=== PATIENT | female | born 1955 | race Caucasian/White ===

== ENCOUNTER 2018-10-05 11:55 | Outpatient (CLI) | payer MEDICARE ==
[~2018-10-05] VITALS: Ht 162.6 cm; Wt 73.2 kg
--- NOTE | ~2018-10-05 | HEMODYNAMI ---
PATIENT:KASSANDRA REYNOLDS MEDICAL RECORD: [id number] : 51 LOCATION:PATTI ADMISSION DATE: 10/05/18 Generatedon:10/05/201815:02 Patient name: KASSANDRA REYNOLDS Patient #: [id number] SSN: : 1955 Date of study: 10/05/2018 Page: Of Hemodynamic Procedure Report Patient Data Patient Demographics Procedure consent was obtained First Name: KASSANDRA Gender: Female Last Name: GAIL : 1955 Middle Initial: DILAN Age: 63 year(s) Patient #: [id number] Race: Unknown Additional ID: [id number] Contact details Address: [address] [place] [address] [address] State: [place] City: [facility] Zip code: [address] Past Medical History Allergies: No known allergies Admission Admission Data Admission Date: 10/05/2018 Admission Time: 11:55 Lab Results Lab Result Date: 10/05/2018 Lab Result Time: 0:00 Biochemistry Name Units Result Min Max BUN mg/dl 22 --(----)-* 7 18 Creatinine mg/dl 1.3 --(---*)-- 0.6 1.3 CBC Name Units Result Min Max Hemoglobin g/dl 12.9 -*(----)-- 13.5 17.5 Procedure Procedure Types Cath Procedure Diagnostic Procedure LHC C w/Coronaries Procedure Description Procedure Date Procedure Date: 10/05/2018 Procedure Start Time: 14:49 Procedure End Time: 15:01 Procedure Staff Name Function Maurice Mayberry MD Performing Physician Oscar Hess RT Monitor Billie Sam RN Nurse Kathleen Shane RT Scrub Procedure Data Cath Procedure Fluoroscopy Diagnostic fluoroscopy Total fluoroscopy Time: 1.2 time: 1.2 min min Diagnostic fluoroscopy Total fluoroscopy dose: 234 dose: 234 mGy mGy Contrast Material Contrast Material Type Amount (ml) Isovue 300 37 Entry Location Entry Primary Successful Side Size Upsize Upsize Entry Closure Morales ccessful Closure Location (Fr) 1 (Fr) 2 (Fr) Remarks Device Remarks Radial Right 6 Fr Mechanical artery Short Compression Estimated blood loss: 10 ml Diagnostic catheters Device Type Used For End Catheter Placement DIAGNOSTIC Maple 110cm 5 Procedure Fr catheter ([id number]) Procedure Medications Medication Administration Route Dosage Oxygen etCO2 Nasal cannula 2 l/min Lidocaine 2% added to field 20 Heparin Flush Bag added to field 2 bags (1000units/500ml NS) 0.9% NaCl I.V. 100 ml/hr Radial Cocktail I.A. 1 syringe (Verapamil 2mg/Nitro 400mcg/Heparin 1500units) Versed I.V. 1 mg Fentanyl I.V. 50 mcg Versed I.V. 1 mg Fentanyl I.V. 50 mcg Hemodynamics Rest HGB: 12.9 (g/dl) Heart Rate: 80 (bpm) Pressure Samples Time Site Value (mmHg) Purpose Heart Use Rate(bpm) 14:52 LV 72/14,12 Snapshot 126 Snapshots Pre Cath Intra NCS Post Cath Vital Signs Time Heart Resp SPO2 etCO2 NIBP Rhythm Pain Sedation Rate (ipm) (%) (mmHg) (mmHg) Status Level (bpm) 14:38:38 74 18 95 27.7 100/50(78) NSR 0 (11) 10(A) , No pain 14:42:52 74 13 92 33 89/47(76) NSR 0 (11) 10(A) , No pain 14:47:04 76 17 94 0 85/47(66) NSR 0 (11) 9(A) , No pain 14:51:18 72 12 95 0 83/39(56) NSR 0 (11) 9(A) , No pain 14:55:29 77 13 95 31.5 83/43(56) NSR 0 (11) 10(A) , No pain 14:59:40 78 13 92 24 81/43(63) NSR 0 (11) 10(A) , No pain Medications Time Medication Route Dose Verified Delivered Reason Notes Effectiveness by by 14:40:07 Oxygen etCO2 2 l/min Maurice Wise used for Nasal [facility] human anatomy teacher cannula 14:42:27 Lidocaine 2% added 20ml Maurice Richards for local to vial [facility] anesthetic field MD BOYKIN 14:42:33 Heparin Flush added 2 bags Maurice Richards used for Bag to Jefe Jefe procedure (1000units/500ml field MD BOYKIN NS) 14:42:44 0.9% NaCl I.V. 100ml/hr Maurice Wise Per [facility] Sam RN physician 14:44:26 Versed I.V. 1 mg Maurice Wise for sedation [facility] Sam RN, MD 14:44:32 Fentanyl I.V. 50 mcg Maurice Wise for sedation [facility] Sam RN, MD 14:51:18 Radial Cocktail I.A. 1 Maurice Richards for (Verapamil syringe [facility] vasodilation 2mg/Nitro MD BOYKIN 400mcg/Heparin 1500units) 14:52:17 Versed I.V. 1 mg Maurice Wise for sedation [facility] Sam RN, MD 14:52:20 Fentanyl I.V. 50 mcg Maurice Wise for sedation [facility] Sam RN, MD Procedure Log Time Note 13:56:39 Informed consent obtained and on chart 13:56:49 Diagnostic Cath Status : Elective 14:21:24 Billie Sam RN sent for patient. Start room use. 14:21:25 Time tracking: Regular hours (M-F 7:00 - 5:00) 14:21:29 Plan of Care:Hemodynamics will remain stable., Cardiac rhythm will remain stable., Comfort level will be maintained., Respiratory function will remain adequate., Patient/ family verbilizes understanding of procedure., Procedure tolerated without complication., Recovers from procedure without complications.. 14:25:53 Patient received from Pre/Post Procedure Room to [facility] 1 Alert and oriented. Tansferred to table in Supine position. 14:25:54 Warm blankets applied, and david hugger turned on for patient comfort. 14:25:55 Correct patient and procedure confirmed by team. 14:25:56 ECG and BP/O2 sat monitors applied to patient. 14:37:23 Vital chart was started 14:37:24 Baseline sample Acquired. 14:37:30 Rhythm: sinus rhythm 14:37:32 Full Disclosure recording started 14:37:55 H&P Date Dictated: 09/26/2018 Within 30 days and on chart., H&P Addendum completed by physician on day of procedure. (MUST COMPLETE FOR ALL OUTPATIENTS). 14:37:57 Pre-procedure instructions explained to patient. 14:37:58 Pre-op teaching completed and patient verbalized understanding. 14:38:02 Family in waiting room. 14:38:06 Patient NPO since Breakfast. 14:38:17 Patient allergic to No known allergies 14:38:20 Is the patient allergic to Iodine/contrast media? No. 14:38:27 Is patient on blood thinner?No 14:38:29 Patient diabetic? Yes. 14:38:30 If diabetic: On Metformin? Yes 14:38:53 If on Metformin: Last Dose? 10/03/2018 14:39:04 Previous problem with sedation/anesthesia? No ? 14:39:07 Snore? Yes 14:39:09 Sleep apnea? No 14:39:11 Deviated septum? No 14:39:12 Opens mouth fully? Yes 14:39:13 Sticks out tongue? Yes 14:39:18 Airway obstruction? No ? 14:39:25 Dentures? Yes in tight 14:39:42 Pre procedure: right dorsailis pedis pulse Doppler 14:39:52 Modified Sergey's test Ulnar < 7 seconds 14:39:55 Patient pain scale 0/10 ?. 14:40:07 Oxygen 2 l/min etCO2 Nasal cannula was administered by Billie Sam RN; used for procedure; 14:40:24 IV patent on arrival in right antecubital with 0.9% NaCl at [facility]. 14:42:27 Lidocaine 2% 20ml vial added to field was administered by Maurice Mayberry MD; for local anesthetic; 14:42:33 Heparin Flush Bag (1000units/500ml NS) 2 bags added to field was administered by Maurice Mayberry MD; used for procedure; 14:42:44 0.9% NaCl 100ml/hr I.V. was administered by Billie Sam RN; Per physician; 14:43:40 Lab Result : BUN 22 mg/dl 14:43:40 Lab Result : Creatinine 1.3 mg/dl 14:43:40 Lab Result : Hemoglobin 12.9 g/dl 14:43:45 Lab results completed and on chart. 14:43:50 Right Radial & Right Groin area was prepped with chlora-prep and draped in sterile fashion 14:43:51 Alarms reviewed by R. N. 14:43:52 Sharps counted by scrub and verified by R.N. 14:43:56 Physician arrived 14:43:56 --------ALL STOP TIME OUT------ 14:43:57 Final Timeout: patient, procedure, and site verified with staff and physician. All members of the team are in agreement. 14:44:00 Right Radial & Right Groin site verified by team. 14:44:06 Maximum allowable Isovue 300 dose 300ml. Physician notified. (300ml for normal creatinines. For patients with creatinine of 1.7 or higher multiply weight(kg) x 5 divided by creatinine.) 14:44:12 Fire Safety Assessment: A--An alcohol-based skin anteseptic being used preoperatively., C--Open oxygen or nitrous oxide is being used., D--An ESU, laser, or fiber-optic light is being used. 14:44:15 Physical assessment completed. ASA score P 2 - A patient with mild systemic disease as per Maurice Mayberry MD. 14:44:21 Sedation plan: IV Moderate Sedation Medication:Versed, Fentanyl 14:44:26 Versed 1 mg I.V. was administered by Billie Sam RN; for sedation; 14:44:32 Fentanyl 50 mcg I.V. was administered by Billie Sam RN; for sedation; 14:44:50 Use device set Radial Dx or PCI 14:44:51 ACIST Syringe (86187) opened to sterile field. 14:44:52 Medline Cath Pack ([id number]) opened to sterile field. 14:44:52 Bag Decanter (2002) opened to sterile field. 14:44:53 DIAGNOSTIC WIRE .035 260cm J wire (309888) opened to sterile field. 14:44:54 ACIST Hand Control (53212) opened to sterile field. 14:44:55 ACIST Manifold (51841) opened to sterile field. 14:44:56 Tegaderm 4 x 4 (1626W) opened to sterile field. 14:44:57 MBrace Wrist Support (110119723) opened to sterile field. 14:44:59 SHEATH 6FR Slender (13-1060) opened to sterile field. 14:49:15 Procedure started. 14:49:28 Local anesthetic to right radial artery with Lidocaine 2% by Maurice Mayberry MD.INITIAL ACCESS ONLY 14:50:25 A 6 Fr Short sheath was inserted into the Right Radial artery 14:50:33 A DIAGNOSTIC Maple 110cm 5 Fr catheter (086834) was advanced over the wire and used for Procedure. 14:51:18 Radial Cocktail (Verapamil 2mg/Nitro 400mcg/Heparin 1500units) 1 syringe I.A. was administered by Maurice Mayberry MD; for vasodilation; 14:51:22 Zero performed for pressure channel P1 14:52:11 LV gram done using STOVER 14:52:14 LV hemodynamics recorded. 14:52:17 Versed 1 mg I.V. was administered by Billie Sam RN; for sedation; 14:52:20 Fentanyl 50 mcg I.V. was administered by Billie Sam RN; for sedation; 14:52:21 EF : 55 % 14:52:38 RCA angiography performed. 14:53:08 LCA angiography performed. 14:54:23 Catheter removed. 14:55:08 TR BAND Standard ([id number]) opened to sterile field. 14:55:15 Procedure ended.(Physican Out) 14:55:32 Sheath removed intact; hemostasis achieved with Mechanical Compression to the Right Radial artery. 14:56:26 Fluoroscopy time 01.20 minutes. 14:56:32 Fluoroscopy dose: 234 mGy 14:56:32 Flurop Dose total: 234 14:56:37 Contrast amount:Isovue 300 37ml. 14:56:39 Sharps counted by scrub and verified by R.N. 14:58:45 TR band inflated with 10cc of air. 14:58:47 Insertion/operative site no bleeding no hematoma. 14:58:53 Post right radial artery:stable 14:59:35 Post-procedure physical assessment completed. ASA score P 2 - A patient with mild systemic disease as per Maurice Mayberry MD. 14:59:40 Post procedure rhythm: sinus rhythm 14:59:45 Estimated blood loss: 10 ml 14:59:52 Patient needs reinforcement of post procedure teaching. 15:00:18 Procedure and supply charges have been captured, reviewed, submitted and are correct. 15:00:48 Vital chart was stopped 15:00:48 See physician's report for complete and final results. 15:00:51 Report given to Pre/Post Procedure Room. 15:01:00 Patient transfered to Pre/Post Procedure Room with Stretcher. 15:01:05 Procedure ended. 15:01:05 Full Disclosure recording stopped 15:01:11 End room use (Document Last) Device Usage Item Name Manufacture Quantity Catalog Hospital Part Current Minimal Lot# / Number Charge Number Stock Stock Serial# Code ACIST Acist 1 93855 542416 685088 033739 20 Syringe Medical (50610) Systems Inc Medline Medline 1 [id number] 015515 49491 221733 5 Cath Pack ([id number]) Bag Microtek 1 2002S 072966 55476 137824 5 Decanter Medical Inc. (2001S) DIAGNOSTIC St Niko 1 969523 933319 972347 484402 30 WIRE .035 260cm J wire (000905) ACIST Hand Acist 1 64780 084235 571531 480888 5 Control Medical (40676) Systems Inc ACIST Acist 1 26558 269227 555346 737164 5 Manifold Medical (26286) Systems Inc Tegaderm 4 3M 1 1626W 318914 431681 072283 5 x 4 (1626W) MBrace Advanced 1 140-0250-00 318375 18574 736872 5 Wrist Vascular Support Dynamics ([id number]) SHEATH 6FR Terumo 1 [id number] 758728 633436 094271 5 Slender (80-1060) DIAGNOSTIC Terumo 1 40-9502 935667 232027 344753 5 Maple 110cm 5 Fr catheter (025868) TR BAND Terumo 1 INP36-FTW 425040 371719 182426 40 Standard ([id number]) Signature Audit [place] Stage Time Signature Unsigned Intra-Procedure 10/05/2018 Oscar Hess 3:02:16 PM RT(R) (CV) Signatures Monitor : Oscar Hess RT Signature : Date : Time : [facility] [address] [place] [address]
[2018-10-05] MEDS ORDERED: ZOLOFT100 MG PO (12:11)
[2018-10-05] MEDS ORDERED: ALBUTEROL SULF8.5 GM INH (12:12)
[2018-10-05] MEDS ORDERED: LISINOPRIL-HCT1 EAC4 PO (12:13)
[2018-10-05] MEDS ORDERED: GLUCOPHAGE1000 MG PO (12:13)
[2018-10-05] MEDS ORDERED: BAYER CHEWABLE81 MG PO (12:15)
[2018-10-05 12:23] VITALS: BP 125/71; Ht 162.6 cm; Wt 73.2 kg
[2018-10-05 12:50] LABS: BASOPHILS 0.3 % (0-2); EOSINOPHILS 1.4 % (0-7); HEMATOCRIT 39.7 % (36.0-48.0); HEMOGLOBIN 12.9 g/dL (12-16); IMMATURE GRANULOCYTES 0.4 % (0-5); LYMPHOCYTES 17.9 % (15-50); MCH 29.7 pg (26.0-34.0); MCHC 32.5 g/dL (31.0-37.0); MCV 91.3 fL (80.0-100.0); MEAN PLATELET VOLUME 11.2 fL (7.4-10.4); MONOCYTES 4.4 % (2-11); NEUTROPHILS 75.6 % (40-80); PLATELET COUNT 162 10x3/uL (130-400); RBC 4.35 10x6/uL (4.00-5.40); RDW 15.2 % (11.5-14.5); WBC 7.8 10x3/uL (4.8-10.8)
[2018-10-05 13:04] LABS: ANION GAP 14.2 mmol/L (8-16); CALCIUM 8.8 mg/dL (8.5-10.1); CARBON DIOXIDE 24.6 mmol/L (21.0-32.0); CREATININE - SERUM 1.3 mg/dL (0.6-1.3); POTASSIUM - SERUM 4.8 mmol/L (3.5-5.1)
--- NOTE | 2018-10-05 15:10 | NUR ---
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 HR 88 CHEST PAIN IS DENIED. BP 126/52
--- NOTE | 2018-10-05 15:20 | NUR ---
STAFF AT BEDSIDE CHEST PAIN IS DENIED TR BAND REMAINS CDI
--- NOTE | 2018-10-05 15:35 | NUR ---
RESTING QUIETLY WITH NO DISTRESS TR BAND IS CDI
--- NOTE | 2018-10-05 15:44 | NUR ---
SANDWICH AND SODA TO BEDSIDE
--- NOTE | 2018-10-05 16:07 | NUR ---
3 CC AIR REMOVED FROM TR BAND WITH NO BLEEDING NOTED
--- NOTE | 2018-10-05 16:21 | NUR ---
3 CC AIR REMOVED FROM TR BAND NO BLEEDING NOTED
--- NOTE | 2018-10-05 16:29 | NUR ---
VERBAL AND WRITTEN DISCHARGE GONE OVER WITH PATIENT. PIV REMOVED WITH DRESSING APPLIED. PATIENT UP TO GET DRESSED FOR DISCHARGE HOME NO DISTRESS AND CHEST PAIN DENIED
--- NOTE | 2018-10-05 16:47 | NUR ---
TR BAND REMOVED WITH DRESSING APPLIED. PATIENT DENIED CHEST PAIN. TRANSPORTED VIA TO PARKING FOR TRANSPORT HOME
--- NOTE | 2018-10-09 15:03 | OP ---
PATIENT NAME: KASSANDRA REYNOLDS MEDICAL RECORD: [id number] :51 LOCATION:D.CAT ADMISSION DATE: SURGEON: MELODIE PEREZ MD DATE OF OPERATION: 10/05/2018 PROCEDURE: Left heart catheterization, selective coronary angiography, right radial approach. CATHETERS: Radial sheath, Harold catheter. The procedure was well tolerated. The patient was returned to the swan, sheath removed. TR band was placed. FINDINGS: Left ventriculography in 30-degree STOVER view; normal wall motion and normal systolic function. CORONARY ANATOMY: LEFT MAIN: Left main is free of disease. LAD: Has a tight elongated 80% to 90% stenosis in its proximal portion, good target distally. CIRCUMFLEX: Has about 80% stenosis just past the first OM. Right coronary codominant. RIGHT CORONARY ARTERY: Totally occluded, fills via [id number] and wlda-rh-lrnsw collaterals. IMPRESSION: Multivessel coronary artery disease, normal LV systolic function. Has good targets, although does have a long time smoking history. We will ask Dr. Jones to see possible coronary artery bypass grafting versus staged intervention. TRANSINT:[id number] Voice Confirmation ID: [id number] DOCUMENT ID: [id number] MELODIE PEREZ MD at 1503 CC: [id number] DICTATION DATE: 10/05/18 1502 VP COMMUNICATIONS: 10/05/18 1618 DEP CLI 10/05/18 [place] [id number] [place] [id number]
== END 2018-10-05 16:48 | disposition home or self-care (01) ==
LOC: D.CATH 11:55
PROVIDERS: ATTEND Internal Medicine Interventional Cardiology
DX: I25.110 Atherosclerotic heart disease of native coronary artery with unstable angina pectoris (principal)

== ENCOUNTER 2018-10-16 08:00 | Outpatient (CLI) | payer MEDICARE ==
[~2018-10-16 08:00] MED LIST: ALBUTEROL SULF8.5 GM INH; BAYER CHEWABLE81 MG PO; GLUCOPHAGE1000 MG PO; LISINOPRIL-HCT1 EAC4 PO; ZOLOFT100 MG PO
[2018-10-16] MEDS ORDERED: XANAX0.25 MG PO (12:47)
[2018-10-16 14:27] LABS: BASOPHILS 0.2 % (0-2); EOSINOPHILS 1.7 % (0-7); HEMATOCRIT 36.4 % (36.0-48.0); HEMOGLOBIN 11.6 g/dL (12-16); IMMATURE GRANULOCYTES 0.3 % (0-5); LYMPHOCYTES 21.7 % (15-50); MCH 29.4 pg (26.0-34.0); MCHC 31.9 g/dL (31.0-37.0); MCV 92.4 fL (80.0-100.0); MEAN PLATELET VOLUME 11.1 fL (7.4-10.4); MONOCYTES 4.5 % (2-11); NEUTROPHILS 71.6 % (40-80); PLATELET COUNT 148 10x3/uL (130-400); RBC 3.94 10x6/uL (4.00-5.40); RDW 15.2 % (11.5-14.5); WBC 5.8 10x3/uL (4.8-10.8)
[2018-10-16 14:56] LABS: ALBUMIN 3.2 g/dL (3.4-5.0); ANION GAP 12.6 mmol/L (8-16); BILIRUBIN - TOTAL 0.23 mg/dL (0.2-1.3); CALCIUM 8.8 mg/dL (8.5-10.1); CARBON DIOXIDE 27.9 mmol/L (21.0-32.0); CREATININE - SERUM 1.4 mg/dL (0.6-1.3); PHOSPHOROUS 3.4 mg/dL (2.5-4.9); POTASSIUM - SERUM 5.5 mmol/L (3.5-5.1); PROTEIN - SERUM 6.6 g/dL (6.4-8.2); T4 THYROXIN - FREE 0.76 ng/dL (0.76-1.46); THYROID STIMULATING HORMONE 3.26 uIU/mL (0.36-3.74)
[2018-10-16 15:08] LABS: APPEARANCE CLEAR (CLEAR); BILIRUBIN NEGATIVE (NEGATIVE); COLOR YELLOW (YELLOW); GLUCOSE NEGATIVE (NEGATIVE); KETONE NEGATIVE (NEGATIVE); NITRITE POSITIVE (NEGATIVE); PROTEIN NEGATIVE (NEGATIVE); UROBILINOGEN NORMAL (NORMAL); WHITE CELLS - URINE 0-5 /hpf (0-5)
[2018-10-16 15:09] LABS: BACTERIA MANY /hpf (NONE SEEN)
[2018-10-16 15:12] LABS: APTT 27.5 SECONDS (22.8-39.4); INR 1.05 (0.85-1.17); PROTIME 13.2 SECONDS (11.6-15.0)
[2018-10-17 10:23] VITALS: BMI 27.5
== END 2018-10-16 08:01 | disposition home or self-care (01) ==
LOC: D.OPS 08:00 → D.SDCHOLD 10-19 07:30 → EDSTATUS 10-19 13:00
PROVIDERS: ATTEND Thoracic Surgery (Cardiothoracic Vascular Surgery)
DX: I25.10 Atherosclerotic heart disease of native coronary artery without angina pectoris (principal)

== ENCOUNTER 2018-10-17 09:19 | Outpatient (CLI) | payer MEDICARE ==
[~2018-10-17 09:19] MED LIST changes: +XANAX0.25 MG PO
[2018-10-17 10:23] VITALS: BP 141/62; BMI 27.5
--- NOTE | 2018-10-17 10:40 | NUR ---
STRAIGHT CATH INSERTED USING STERILE TECHNIQUE, PT TOLERATED WELL.
--- NOTE | 2018-10-17 10:41 | NUR ---
PT DC INSTRUCTIONS REVIEWED AT THIS TIME, PT VERBALIZES UNDERSTANDING.
--- NOTE | 2018-10-17 10:46 | NUR ---
PTLEAVING OPS SURGERY AT THIS TIME VIA WC, NAD NOTED.
[2018-10-17 11:29] LABS: APPEARANCE SL CLDY (CLEAR); BACTERIA MANY /hpf (NONE SEEN); BILIRUBIN NEGATIVE (NEGATIVE); COLOR YELLOW (YELLOW); EPITHELIAL CELLS 0-5 /hpf (0-5); GLUCOSE NEGATIVE (NEGATIVE); KETONE NEGATIVE (NEGATIVE); MUCUS <1+ /lpf (NONE SEEN); NITRITE POSITIVE (NEGATIVE); PROTEIN NEGATIVE (NEGATIVE); RED CELLS - URINE RARE /hpf (0-5); UROBILINOGEN NORMAL (NORMAL); WHITE CELLS - URINE 0-5 /hpf (0-5)
--- NOTE | 2018-10-17 11:33 | NUR ---
1133-UA RESULTS CALLED TO DR MENDOSA OFFICE.
== END 2018-10-17 10:46 | disposition home or self-care (01) ==
LOC: D.LAB 09:19 → D.OPS 09:19
PROVIDERS: ATTEND Thoracic Surgery (Cardiothoracic Vascular Surgery)
DX: N39.0 Urinary tract infection, site not specified (principal)

== ENCOUNTER → 2018-10-24 08:13 | Outpatient (CLI) | payer MEDICARE ==
[2018-10-17 10:23] VITALS: BMI 27.5
[2018-10-24 08:42] LABS: APPEARANCE HAZY (CLEAR); BILIRUBIN NEGATIVE (NEGATIVE); COLOR YELLOW (YELLOW); GLUCOSE NEGATIVE (NEGATIVE); KETONE NEGATIVE (NEGATIVE); NITRITE NEGATIVE (NEGATIVE); PROTEIN NEGATIVE (NEGATIVE); SPECIFIC GRAVITY 1.015 (1.005-1.020); UROBILINOGEN NORMAL (NORMAL)
== END | disposition home or self-care (01) ==
LOC: D.LAB 08:13
PROVIDERS: ATTEND Thoracic Surgery (Cardiothoracic Vascular Surgery)
DX: N39.0 Urinary tract infection, site not specified (principal); Z01.812 Encounter for preprocedural laboratory examination

== ENCOUNTER 2018-10-25 07:44 | Inpatient (IN) | payer MEDICARE ==
[~2018-10-25] VITALS: Ht 162.6 cm; Wt 80.6 kg
--- NOTE | 2018-10-25 08:36 | NUR ---
VS SANAZ 10/25/18 BP L-121/50, R- 122/46 HR- 77 POX- 97% RR-16 T-97.4T SPOKE WITH DR BUSH ABOUT RECONSULATING HER TODAY. RACHELLE STATED LONG SHE WAS OK WITH THE PLAN FROM PREVIOUS HE DIDN'T SEE ANY NEED TO RECONSULT.
[2018-10-25 08:57] LABS: BASOPHILS 0.3 % (0-2); EOSINOPHILS 2.2 % (0-7); HEMATOCRIT 36.8 % (36.0-48.0); IMMATURE GRANULOCYTES 0.4 % (0-5); LYMPHOCYTES 16.8 % (15-50); MCH 29.9 pg (26.0-34.0); MCHC 32.6 g/dL (31.0-37.0); MCV 91.5 fL (80.0-100.0); MEAN PLATELET VOLUME 10.7 fL (7.4-10.4); MONOCYTES 3.3 % (2-11); PLATELET COUNT 166 10x3/uL (130-400); RBC 4.02 10x6/uL (4.00-5.40); RDW 15.3 % (11.5-14.5); WBC 6.9 10x3/uL (4.8-10.8)
[2018-10-25 09:14] LABS: APTT 28.6 SECONDS (22.8-39.4); INR 1.08 (0.85-1.17); PROTIME 13.5 SECONDS (11.6-15.0)
[2018-10-25 09:27] LABS: ALBUMIN 3.7 g/dL (3.4-5.0); ANION GAP 16.1 mmol/L (8-16); BILIRUBIN - TOTAL 0.24 mg/dL (0.2-1.3); CALCIUM 8.8 mg/dL (8.5-10.1); CARBON DIOXIDE 23.3 mmol/L (21.0-32.0); CREATININE - SERUM 1.7 mg/dL (0.6-1.3); PHOSPHOROUS 3.4 mg/dL (2.5-4.9); POTASSIUM - SERUM 5.4 mmol/L (3.5-5.1); PROTEIN - SERUM 7.1 g/dL (6.4-8.2); T4 THYROXIN - FREE 0.75 ng/dL (0.76-1.46); THYROID STIMULATING HORMONE 2.04 uIU/mL (0.36-3.74); URIC ACID 7.6 mg/dL (2.6-7.2)
[2018-10-25 09:41] LABS: APPEARANCE HAZY (CLEAR); BACTERIA FEW /hpf (NONE SEEN); BILIRUBIN NEGATIVE (NEGATIVE); COLOR YELLOW (YELLOW); EPITHELIAL CELLS 0-5 /hpf (0-5); GLUCOSE NEGATIVE (NEGATIVE); HYALINE CAST RARE /lpf (NONE SEEN); KETONE NEGATIVE (NEGATIVE); MUCUS <1+ /lpf (NONE SEEN); NITRITE NEGATIVE (NEGATIVE); PROTEIN NEGATIVE (NEGATIVE); RED CELLS - URINE 0-5 /hpf (0-5); SPECIFIC GRAVITY 1.015 (1.005-1.020); UROBILINOGEN NORMAL (NORMAL); WHITE CELLS - URINE OCC /hpf (0-5)
[2018-10-27 09:00] LABS: CREATININE - SERUM 1.5 mg/dL (0.6-1.3)
[2018-10-30] VITALS (46 sets, daily range): BP systolic 92–149; BP diastolic 37–64; BMI 27.5; BMI 30.1
--- NOTE | 2018-10-30 05:47 | NUR ---
PATIENT STATES HEALTH HISTORY UNCHANGED SINCE 10/16/18.
[2018-10-30 14:24] LABS: INR 2.06 (0.85-1.17); PROTIME 22.5 SECONDS (11.6-15.0)
[2018-10-30 16:23] LABS: INR 1.33 (0.85-1.17); PROTIME 15.9 SECONDS (11.6-15.0)
--- NOTE | 2018-10-30 16:25 | NUR ---
PT INR CALLED TO DR FIERRO ALONG WITH UPDATE ON VS AND GTTS, ORDERS TO BEGIN CLEVIPREX
--- NOTE | 2018-10-30 16:42 | NUR ---
1655PT RECIEVED TO ROOM, SEDATED FROM SURGERY, INTUBATED WITH ETT 8.0 22 AT THE LIP PLACED ON VENT BY RT, AC, RATE 14, FIO2 60%, R IJ CVL DRESSING CDI WITH PLASMALYTE 100ML/HR, MARY WEANED OFF FROM 0.3MCG, ZINACEF INITIATED PER EMAR, BURETROL PER EMAR, MIDSTERNAL AND SUBSTERNAL DRESSINGS CDI WITH SUBSTERNAL TPM WIRE COILED, L MOJGAN DRAIN COMPRESSED WITH 30ML EMPTIED, A&P CT TO 20CM SUCTION NO AIR LEAK BLOODY DRAINAGE, RLE AND LLE HARVEST SITES CDI WITH LLE GASPER DRAIN COMPRESSED WITH BLOODY DRAINAGE, R RADIAL A LINE WITH GOOD WAVEFORM, WRIST PROTECTOR IN PLACE, ZEROED, CRITICORE JUSTICE DRAINING YELLOW URINE, BLOOD PRODUCTS ADMINISTERED ABGS REVIEWED BY DR FIERRO
--- NOTE | 2018-10-30 16:49 | NUR ---
CVP NOTED TO HAVE DROPPED, NO SIGNS OF BLEEDING FROM MAYKEL/GASPER/CTS AND NO CHANGE IN HR OR BP, DR MENDOSA NURSE LISA NOTIFIED
--- NOTE | 2018-10-30 18:25 | NUR ---
DR FIERRO UPDATED ON PT CONDITION, NO NEW ORDERS
--- NOTE | 2018-10-30 19:20 | NUR ---
PT OPENS EYES AND FOLLOWS COMMANDS. DENIES PAIN. VSS. AFEBRILE.
--- NOTE | 2018-10-30 19:55 | NUR ---
PT REMAINS LETHARGIC. AWAKENS EASILY AND FOLLOWS COMMANDS
--- NOTE | 2018-10-30 21:50 | NUR ---
PT EXTUBATED AND ON 4L NC. AWAKE AND ALERT. 250-400 ON IS.
[2018-10-31] VITALS (64 sets, daily range): BP systolic 86–133; BP diastolic 38–58; Ht 162.6 cm; Wt 80.6 kg
--- NOTE | 2018-10-31 01:00 | NUR ---
PT DANGLED AT BEDSIDE PER ORDER. TOLERATED WELL
--- NOTE | 2018-10-31 03:00 | NUR ---
PT SIPPING ICE WATER INDEPENDENTLY. SWALLOWS W/O DIFFICULTY.
--- NOTE | 2018-10-31 04:15 | NUR ---
SPOUSE AT BEDSIDE. PT IS AWAKE AND ALERT.
[2018-10-31 06:13] LABS: HEMATOCRIT 28.9 % (36.0-48.0); HEMOGLOBIN 9.3 g/dL (12-16); MCH 29.2 pg (26.0-34.0); MCHC 32.2 g/dL (31.0-37.0); MCV 90.9 fL (80.0-100.0); MEAN PLATELET VOLUME 10.1 fL (7.4-10.4); RBC 3.18 10x6/uL (4.00-5.40); RDW 15.3 % (11.5-14.5); WBC 8.2 10x3/uL (4.8-10.8)
[2018-10-31 06:39] LABS: ALBUMIN 2.6 g/dL (3.4-5.0); BILIRUBIN - TOTAL 0.3 mg/dL (0.2-1.3); CARBON DIOXIDE 29.8 mmol/L (21.0-32.0); CREATININE - SERUM 1.3 mg/dL (0.6-1.3); POTASSIUM - SERUM 4.8 mmol/L (3.5-5.1)
--- NOTE | 2018-10-31 06:49 | NUR ---
OOB TO CHAIR. FEET ELEVATED. TOLERATED WELL.
[2018-10-31 07:00] LABS: CALCIUM 7.1 mg/dL (8.5-10.1)
--- NOTE | 2018-10-31 07:00 | NUR ---
REPORT RECIEVED, PATIENT UP IN CHAIR, 4L O2 NC, RIGHT IJ CVL, DRESSING CDI, PLASMOLYTE AND ZENICEF INFUSING, RIGHT RADIAL A-LINE, GOOD WAVEFORM, WRIST PROTECTOR IN PLACE, MIDSTERNAL AND SUBSTERNAL DRESSING CDI, SUBSTERNAL CHEST TUBE X2 TO 20CM SUCTION, NO AIR LEAK, BLOODY DRAINAGE, SUBSTERNAL MAYKEL DRAIN COMPRESSED WITH BLOODY DRAINAGE, TPM WIRES COILED, BLE HARVEST SITES CDI, LLE GASPER DRAIN COMPRESSED WITH BLOODY DRAINAGE, CRITICORE JUSTICE DRAINING YELLOW URINE
--- NOTE | 2018-10-31 08:37 | NUR ---
JUSTICE DCED, ART LINE DCED WITHOUT COMPLICATION PER PROTOCOL. PLASMALYTE DCED.
--- NOTE | 2018-10-31 11:00 | NUR ---
WALKED WITH THERAPY FOR 32FT
--- NOTE | 2018-10-31 12:52 | NUR ---
TOLERATES CLEAR LIQUIDS, LEFT LEG GASPER REMOVED. SIGNIFICANT OTHER AT BEDSIDE
--- NOTE | 2018-10-31 15:55 | NUR ---
[address] ASSISTED TO BED PER DR FIERRO WHO WILL RETURN TO REMOVE CTS
--- NOTE | 2018-10-31 16:04 | OP ---
PATIENT NAME: KASSANDRA REYNOLDS MEDICAL RECORD: [id number] :51 LOCATION:DDAPHNEYI D.CV03 ADMISSION DATE:10/30/18 SURGEON: USMAN FIERRO MD DATE OF OPERATION: 10/30/2018 SURGEON: Usman Fierro MD ASSISTANTS: AASHISH Vega MD and Feng Shepard. PREOPERATIVE DIAGNOSIS: Coronary artery disease. POSTOPERATIVE DIAGNOSIS: Coronary artery disease. PROCEDURES PERFORMED: 1. Coronary artery bypass graft times 3 (left internal mammary to LAD, reverse saphenous vein graft from aorta to obtuse marginal, aorta to posterior descending artery). 2. Endoscopic saphenous vein harvest. ANESTHESIA: General endotracheal anesthesia. ESTIMATED BLOOD LOSS: Total cardiopulmonary bypass with Cell Saver retransfusion and 5 packed red blood cells, 1 platelet, 1 FFP. COMPLICATIONS: None. SPECIMEN: None. CONDITION: Stable. DISPOSITION: CV ICU. OPERATIVE FINDINGS: 1. Transesophageal echocardiography revealed good global contractility with no significant valvular stenosis or incompetence, unchanged after cardiopulmonary bypass. 2. Small greater saphenous vein in the right leg, not harvested. On the left leg, endoscopic harvest performed, but due to several large varicosities multiple incisions were required, but the vein was adequate quality, although thin walled. 3. Large fatty heart. 4. Intraoperative hyperkalemia, but good urine output in a patient with known chronic renal insufficiency. 5. LAD deep anterior epicardial 1.5 mm. 6. Obtuse marginal 1.5 mm. 7. Posterior descending artery 1.5 mm with severe disease. OPERATIVE INDICATION: Multivessel coronary artery disease. OPERATIVE PROCEDURE IN DETAIL: The patient was brought to the operating suite. General anesthesia was obtained. The patient was prepped and draped. Greater saphenous vein initially was exposed in the right leg below the knee, but was small; therefore, an incision was made in the left side. Endoscopic vein harvest was performed, but due to large varicosities, several incisions were made. The vessel was eventually ligated proximally and distally, leakage sites OPERATIVE REPORT [id number] KASSANDRA REYNOLDS and thin sites were oversewn and side branches were tied. Later, the leg was closed in multiple layers. Median sternotomy incision was made. Subcutaneous tissue divided with electrocautery. The sternum was divided with a saw. Left hemisternum was elevated. Left pleural cavity was entered. Left internal mammary was taken down as a pedicle graft. Sternal retractor was placed. Pericardium was opened. Heparin was given. The aorta was cannulated. The right atrium was well rotated to the right and was cannulated between a pursestring. After activated clotting time was appropriately elevated, the patient was placed on cardiopulmonary bypass. Sites for distal anastomosis were selected. Internal mammary had been made ready for anastomosis while waiting on the activated clotting time to be elevated. Sites for distal anastomoses were scratched out in the deep epicardial fat. There was some bleeding on heparin from the leg. It was controlled with packing and later with direct visualization and hemostasis with electrocautery. The distal anastomosis was performed in standard technique, proximal anastomosis with single cross-clamp technique with 7-0 used for the proximal anastomoses due to the thin walled veins. Aortic root was de-aired. Proximal anastomoses were tied down. The proximal distal anastomotic sites were inspected for bleeding. Left chest was evacuated and irrigated. The patient resumed spontaneous rhythm, weaned from cardiopulmonary bypass after full rewarming and was stable. The patient was decannulated. Protamine was given. Aortic cannulation site was removed, but bleeding occurred after hypertension. This was repaired with pledgeted Prolene suture. Thorough irrigation was undertaken. Hemostasis was ensured. The patient was felt to have coagulopathy and protamine was given. After the protamine, the INR was still elevated at 2.0 and additional plasma was ordered. Drains were placed in mediastinum and both pleural cavity. Ventricular pacing wires were placed. Pericardial fat was loosely reapproximated over the aorta. Left chest again evacuated and irrigated. Internal mammary artery was inspected for bleeding. Sternum was closed with wires. Fascia was closed. Subcutaneous tissue was closed. Skin was closed. Dermabond was placed. The needle and sponge counts were reported as correct. The patient was taken to ICU in stable condition. TRANSINT:[id number] Voice Confirmation ID: [id number] DOCUMENT ID: [id number] 10/30/2018 cc: Richard Lima APN, Unknown. USMAN FIERRO MD at 1604 CC: MELODIE PEREZ MD [id number] DICTATION DATE: 10/30/18 1447 SPANISH SPEAKING BABYSITTER: 10/30/18 [address] [facility] [address] [place] [address]
--- NOTE | 2018-10-31 17:00 | NUR ---
DR FIERRO DCED CHEST TUBES X2, DRESSING APPLIED, PT ASSISTED BACK TO CHAIR WITH DINNER TRAY
[2018-10-31 17:39] LABS: CREATININE - URINE 98.1 mg/dL (30-125); PROTEIN - URINE 38.4 mg/dL (0.0-11.9)
[2018-10-31 18:22] LABS: APPEARANCE CLEAR (CLEAR); BILIRUBIN NEGATIVE (NEGATIVE); COLOR YELLOW (YELLOW); GLUCOSE NEGATIVE (NEGATIVE); KETONE NEGATIVE (NEGATIVE); NITRITE NEGATIVE (NEGATIVE); PROTEIN NEGATIVE (NEGATIVE); SPECIFIC GRAVITY 1.025 (1.005-1.020); UROBILINOGEN NORMAL (NORMAL)
[2018-10-31 18:23] LABS: EPITHELIAL CELLS OCC /hpf (0-5); RED CELLS - URINE 0-5 /hpf (0-5); WHITE CELLS - URINE 0-5 /hpf (0-5)
[2018-10-31 18:24] LABS: BACTERIA MODERATE /hpf (NONE SEEN)
--- NOTE | 2018-10-31 22:00 | NUR ---
OOB TO BATHROOM WITH MINIMAL ASSISTANCE. VOIDED. ASSISTED BACK TO BED AFTER LINEN CHANGE. VERY SOB WITH EXERTION.
[2018-11-01] VITALS (66 sets, daily range): BP systolic 89–148; BP diastolic 35–74
--- NOTE | 2018-11-01 02:30 | NUR ---
OOB TO BATHROOM INDEPENDENTLY. VOIDED. ASSISTED BACK TO BED.
--- NOTE | 2018-11-01 06:00 | NUR ---
PT OOB TO BATHROOM. VOIDED. UP TO CHAIR AT BEDSIDE AFTER DRSGS WERE CHANGED.
[2018-11-01 06:28] LABS: HEMATOCRIT 27.2 % (36.0-48.0); HEMOGLOBIN 8.9 g/dL (12-16); MCH 30.1 pg (26.0-34.0); MCHC 32.7 g/dL (31.0-37.0); MCV 91.9 fL (80.0-100.0); MEAN PLATELET VOLUME 10.4 fL (7.4-10.4); RBC 2.96 10x6/uL (4.00-5.40); RDW 15.2 % (11.5-14.5); WBC 9.3 10x3/uL (4.8-10.8)
[2018-11-01 06:43] LABS: ALBUMIN 2.6 g/dL (3.4-5.0); BILIRUBIN - TOTAL 0.41 mg/dL (0.2-1.3); CALCIUM 7.8 mg/dL (8.5-10.1); CARBON DIOXIDE 30.5 mmol/L (21.0-32.0); CREATININE - SERUM 1.5 mg/dL (0.6-1.3); PROTEIN - SERUM 5.7 g/dL (6.4-8.2)
[2018-11-01 06:45] LABS: ANION GAP 10.4 mmol/L (8-16); POTASSIUM - SERUM 3.9 mmol/L (3.5-5.1)
--- NOTE | 2018-11-01 07:00 | NUR ---
REC'D UP IN CHAIR, VSS, DENIES ANY NEED AT THIS TIME.
--- NOTE | 2018-11-01 07:45 | NUR ---
ASSESSED, MEAL SERVED, C/O INCREASED MS INC PAIN WORSE W/CDB. WILL GIVE PAIN MED.
--- NOTE | 2018-11-01 08:32 | OP ---
PATIENT NAME: KASSANDRA REYNOLDS MEDICAL RECORD: [id number] :51 LOCATION:[facility] ADMISSION DATE:10/30/18 SURGEON: CHRIS FIERRO MD DATE OF OPERATION: 10/30/2018 ADDENDUM The clinical medical assistant surgeon for this case was Dr. Vega. Dr. Vega harvested the vein, ligated the bleeders, and then oversewed side branches and thin spots on the vein. The use of an clinical medical assistant surgeon saved approximately 45 minutes of general anesthetic time on this case. TRANSINT:[id number] Voice Confirmation ID: [id number] DOCUMENT ID: [id number] CHRIS FIERRO MD at 0832 CC: [id number] DICTATION DATE: 10/31/18 1603 RAMP AND CARGO SUPERVISOR: 10/31/18 1624 ADM IN [facility] [id number] [place] [address]
--- NOTE | 2018-11-01 08:45 | NUR ---
DR FIERRO IN- PT NOW W/ RESP DISTRESS- RR 30s/HR 110S/O2 SAT 80s. O2 INCREASED TO 6L/NC AND RETURNED TO BED. MARY GTT STARTED AT 0.01MCG/KG/MIN.
--- NOTE | 2018-11-01 08:57 | NUR ---
RESP DISTRESS IMPROVED- RR 27/HR 90/ O2 SAT 94%. SIGNIFICANT OTHER IN AND UPDATED.
--- NOTE | 2018-11-01 10:20 | NUR ---
RESTING W/EYES CLOSED, RESP SHALLOW/ UNLABORED, OPENS EYES TO VERBAL. LEFY GROIN DRSG CHANGED. REPOSITIONED UP IN BED. BECOMES AUDIBLY WHEEZY W/EXERTION.
--- NOTE | 2018-11-01 10:39 | NUR ---
VDS PER BEDPAN- AGAIN BECOMES AUDIBLY WHEEZY W/ANY ACTIVITY.
--- NOTE | 2018-11-01 12:00 | NUR ---
REASSESSED, FREQUENTLY ON BEDPAN.
--- NOTE | 2018-11-01 13:00 | NUR ---
MARY INCREASED TO 0.2MCG/KG/MIN- SEE FLOWSHEET.
--- NOTE | 2018-11-01 13:05 | NUR ---
NUTRITION F/U PT UP TO CHAIR, VISITORS IN ROOM. TOLERATING DIABETIC DIET WITH ~ 50% INTAKE BREAKFAST THIS AM. WILL CONTINUE TO PROVIDE DIET, MONITOR PO INTAKE. RD FOLLOWING
--- NOTE | 2018-11-01 13:30 | NUR ---
MARY INCREASED- SEE FLOWSHEET. CONT TO GET SOB W/ ACT. FREQU BEDPAN.
--- NOTE | 2018-11-01 14:50 | NUR ---
PAIN MED GIVEN FOR INC PAIN.
--- NOTE | 2018-11-01 15:00 | NUR ---
REASSESSED W/O CHANGES. MARY TITRATED-SEE IVFLOWSHEET.
--- NOTE | 2018-11-01 16:00 | NUR ---
BATH/LINEN CHANGE DONE.
--- NOTE | 2018-11-01 17:00 | NUR ---
MARY INCREASED-SEE FLOWSHEET.
--- NOTE | 2018-11-01 18:30 | NUR ---
TRANFERED TO 2213 VIA W/C IN NO DISTRESS.
[2018-11-01 19:10] LABS: SPE - A/G RATIO 1.6 (0.7-1.7); SPE - ALBUMIN 2.8 g/dL (2.9-4.4); SPE - ALPHA-1 GLOBULIN 0.3 g/dL (0.0-0.4); SPE - ALPHA-2 GLOBULIN 0.5 g/dL (0.4-1.0); SPE - BETA GLOBULIN 0.6 g/dL (0.7-1.3); SPE - GAMMA GLOBULIN 0.5 g/dL (0.4-1.8); SPE - M-SPIKE Not Observed g/dL (Not Observed); SPE - TOTAL PROTEIN 4.6 g/dL (6.0-8.5)
--- NOTE | 2018-11-01 20:30 | NUR ---
VOIDED IN BEDPAN. DENIES NEEDS
[2018-11-02] VITALS (41 sets, daily range): BP systolic 92–122; BP diastolic 30–75
--- NOTE | 2018-11-02 | NUR ---
NPO PER DR MENDOSA REQUEST FOR POSSIBLE PROCEDURE THIS AM.
--- NOTE | 2018-11-02 03:30 | NUR ---
VOIDED PER BEDPAN. REPOSITIONED FOR COMFORT. SUBSTERNAL DRSG CHANGED.
[2018-11-02 06:01] LABS: HEMATOCRIT 23.9 % (36.0-48.0); HEMOGLOBIN 7.8 g/dL (12-16); MCH 30.1 pg (26.0-34.0); MCHC 32.6 g/dL (31.0-37.0); MCV 92.3 fL (80.0-100.0); MEAN PLATELET VOLUME 10.4 fL (7.4-10.4); PLATELET COUNT 95 10x3/uL (130-400); RBC 2.59 10x6/uL (4.00-5.40); RDW 15.1 % (11.5-14.5)
[2018-11-02 06:11] LABS: WBC 6.2 10x3/uL (4.8-10.8)
[2018-11-02 06:38] LABS: ALBUMIN 2.3 g/dL (3.4-5.0); ANION GAP 8.8 mmol/L (8-16); BILIRUBIN - TOTAL 0.38 mg/dL (0.2-1.3); CALCIUM 7.9 mg/dL (8.5-10.1); CARBON DIOXIDE 30.2 mmol/L (21.0-32.0); CREATININE - SERUM 1.2 mg/dL (0.6-1.3); PROTEIN - SERUM 5.4 g/dL (6.4-8.2)
--- NOTE | 2018-11-02 07:00 | NUR ---
REPORT RECIEVED FROM THE OFF GOING RN. SEE ASSESSMENT IN THE PTS FLOW SHEET. PT IN NSR. VSS. ON 3L VIA O2. PT ASSISTED OOB AND INTO THE BEDSIDE CHAIR. PT C/O BEING SOB. O2 INCREASED TO 4L VIA NC. DR FIERRO IN THE PTS ROOM AND UPDATED ON THE PTS CONDITION. AFTER A FEW MOMENTS AND ENCOURAGING DEEP BREATHING, THE PT SOB SUBSIDED. PT PULLS ABOUT 500 ON HER IS. EDUCATED TO USE 10X'S/H AND TO COUGH. PT HAS BEEN NPO. CALL LIGHT IN REACH. WILL CONT POC.
[2018-11-02 07:28] LABS: PLATELET ESTIMATE DECREASED
--- NOTE | 2018-11-02 09:15 | NUR ---
PT DOING IS 10X'S/H. PT ONLY ABLE TO PULL ABOUT 500. ENCOURAGED TCDB.
--- NOTE | 2018-11-02 10:29 | NUR ---
SPOKE WITH DR FLORES ABOUT EXERTIONAL DYSPNEA. DR FLORES STATED TO LIMIT EXCERCISE AND TO KEEP O2.
--- NOTE | 2018-11-02 10:32 | NUR ---
PT BEDSIDE COMMODE AT THE PTS BEDSIDE. FREQUENCY IN VOIDING NOTED. PT OCCASIONALLY INC. PERIARE SELF PROVIDED
--- NOTE | 2018-11-02 10:51 | NUR ---
SPOKE WITH LISA ÁLVAREZ ABOUT PT BEING OCCASIONAL INC OF THE BLADDER BECAUSE OF THE LASIX. SHE SPOKE WITH DR FIERRO. OK TO PLACE JUSTICE.
--- NOTE | 2018-11-02 11:27 | NUR ---
FC INSERTED USING STERILE TECHNIQUE. CLEAR URINE RETURN. UA COLLECTED AND SENT TO THE LAB.
[2018-11-02 12:55] LABS: APPEARANCE CLEAR (CLEAR); BACTERIA FEW /hpf (NONE SEEN); BILIRUBIN NEGATIVE (NEGATIVE); COLOR STRAW (YELLOW); EPITHELIAL CELLS OCC /hpf (0-5); GLUCOSE NEGATIVE (NEGATIVE); KETONE NEGATIVE (NEGATIVE); NITRITE NEGATIVE (NEGATIVE); PROTEIN NEGATIVE (NEGATIVE); RED CELLS - URINE OCC /hpf (0-5); UROBILINOGEN NORMAL (NORMAL); WHITE CELLS - URINE RARE /hpf (0-5)
--- NOTE | 2018-11-02 13:40 | NUR ---
OXYGEN SATURATION DECREASED TO 90% ON 4L NC. BIPAP PLACED AT THIS TIME PER PRN ORDERS. OXYGEN SATURATION INCRASED TO 95%. NO ACUTE DISTRESS NOTED. VSS. WILL CONTINUE PLAN OF CARE.
--- NOTE | 2018-11-02 13:51 | NUR ---
DRSSING CHANGED COMPLETED PER ORDERES.
--- NOTE | 2018-11-02 15:03 | NUR ---
UP IN CHAIR WATCHING TV AT THIS TIME. NO ACUTE DISTRESS NOTED. PT DENIES ANY NEEDS. VSS. CALL LIGHT IN REACH. PERSONAL ITEMS IN REACH. WILL CONTINUE PLAN OF CARE.
--- NOTE | 2018-11-02 15:55 | NUR ---
1 U PRBC ADMINISTRATION INITIATED AT THIS TIME PER ORDERS. PT DENIES ANY NEEDS. VSS. PER DR FIERRO, PT TO HAVE CTA CHEST FOR PE PROTOCOL AFTER PT RECIEVED PRBC. NO ACUTE DISTRESS NOTED. WILL CONTINUE PLAN OF CARE.
--- NOTE | 2018-11-02 17:39 | NUR ---
UP IN BED AWAKE AT THIS TIME. NO ACUTE DISTRESS NOTED. VSS. CALL LIGHT IN REACH. WILL CONTINUE PLAN OF CARE.
--- NOTE | 2018-11-02 20:15 | NUR ---
CALLED [facility], ORDERS RECEIVED: START HEPRIN GTT @1000 U/HR, NO BOLUS, REPEAT PTT WITH AM LABS, NO FURTHER AT THIS TIME
--- NOTE | 2018-11-02 20:30 | NUR ---
ASSISTED PT FROM CHAIR TO BED, MEDS GIVEN PER MAR/ORDERS, PT REFUSED SCD'S, ELEVATED HOB PER PT REQUEST, VSS, WILL CONTINUE TO MONITOR
[2018-11-02 21:00] LABS: APTT 20.8 SECONDS (22.8-39.4); INR 1.24 (0.85-1.17); PROTIME 15.1 SECONDS (11.6-15.0)
[2018-11-03] VITALS (24 sets, daily range): BP systolic 94–129; BP diastolic 43–66
--- NOTE | 2018-11-03 04:32 | NUR ---
UPDATED ON PT, ORDERS RECEIVED FOR PT TO NOT BE AMBULATED TO BEDSIDE CHAIR IN MORNING
[2018-11-03 05:49] LABS: HEMATOCRIT 25.9 % (36.0-48.0); HEMOGLOBIN 8.5 g/dL (12-16); MCH 29.8 pg (26.0-34.0); MCHC 32.8 g/dL (31.0-37.0); MCV 90.9 fL (80.0-100.0); MEAN PLATELET VOLUME 9.6 fL (7.4-10.4); RBC 2.85 10x6/uL (4.00-5.40); RDW 15.3 % (11.5-14.5); WBC 5.3 10x3/uL (4.8-10.8)
[2018-11-03 06:05] LABS: ALBUMIN 2.1 g/dL (3.4-5.0); BILIRUBIN - TOTAL 0.44 mg/dL (0.2-1.3); CALCIUM 7.6 mg/dL (8.5-10.1); CARBON DIOXIDE 31.6 mmol/L (21.0-32.0); CREATININE - SERUM 1.2 mg/dL (0.6-1.3); POTASSIUM - SERUM 3.6 mmol/L (3.5-5.1); PROTEIN - SERUM 5.3 g/dL (6.4-8.2)
--- NOTE | 2018-11-03 13:04 | NUR ---
Nutrition Follow Up: Pt stated that her appetite is good and she loves the food. Diet: ADA PO Intake: 63% meal avg I>O Wt stable No BM since admit Rec continue current diet. RD following.
[2018-11-03 13:09] LABS: APTT 42.6 SECONDS (22.8-39.4); INR 1.14 (0.85-1.17); PROTIME 14.1 SECONDS (11.6-15.0)
--- NOTE | 2018-11-03 15:29 | MORECARE ---
CASE MANAGEMENT DISCHARGE SUMMARY PATIENT: KASSANDRA REYNOLDS UNIT: [id number] ADM DATE: 10/30/18 AGE: 63 : 53 SEX: F ROOM/BED: [facility] AUTHOR: ZEE,DOC PHYSICIAN: REFERRING PHYSICIAN: CHRIS FIERRO MD DATE OF SERVICE: 11/03/18 Discharge Plan Patient Name: KASSANDRA REYNOLDS Facility: [facility]:[place] : 1955 Planned Disposition: Anticipated Discharge Date: Discharge Date: Expected LOS: Initial Reviewer: [email or web address] Initial Review Date: 11/03/2018 Generated: 11/03/18 4:29 pm Comments DCP- Discharge Planning Updated by [email or web address]: Sandra Ly on 11/03/18 2:[address] Patient Name: KASSANDRA REYNOLDS Admission Status: Urgent Accout number: [id number] Admission Date: 10-30-2018 : 1955 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 RESOURCES FOR POST DISCHARGE OFFERED TO PATIENT. STATES NO NEEDS AT THIS TIME. WILL DC TO HOME WITH FAMILY. CM TO FOLLOW AND ASSIST NEEDED WITH DC PLANNING/NEEDS. Arc Furnace Operator: Sandra Ly DCPIA - Discharge Planning Initial Assessment Updated by [id number]: Sandra Ly on 11/03/18 3:26 pm * Is the patient Alert and Oriented? Yes * PCP DOESN'T REMEMBER HIS NAME * Pharmacy [facility] * Preadmission Environment Home with Family * ADLs Independent * Other Equipment HAS WALKER, CANE, SC, BC IF NEEDED. * List name and contact numbers for known caregivers / representatives who currently or will assist patient after discharge: ZIA MEDEIROS, * Community resources currently utilized None * Additional services required to return to the preadmission environment? No * Can the patient safely return to the preadmission environment? Yes * Has this patient been hospitalized within the prior 30 days at any hospital? No Patient Name: KASSANDRA REYNOLDS Page [phone] at 1529 All edits/amendments must be made on the electronic document DICTATION DATE: 11/03/181528 DECORATOR LIGHTING FIXTURES: EFRAÍN 11/03/181528 RPT#: [id number] DC DATE: STATUS: ADM IN [facility] [address] [place] [address] END OF REPORT
[2018-11-04] VITALS (24 sets, daily range): BP systolic 84–132; BP diastolic 35–68
--- NOTE | 2018-11-04 00:45 | NUR ---
INITIAL BLOOD DRAWN FOR HEPARIN PROTOCOL PTT AT 0000 PROBLEM WITH LAB TUBE REDRAWN AND ALSO BLOOD DRAWN FOR HEMOGRAM SENT TO LAB
[2018-11-04 01:01] LABS: HEMATOCRIT 25.4 % (36.0-48.0); HEMOGLOBIN 8.3 g/dL (12-16); MCHC 32.7 g/dL (31.0-37.0); MCV 91.7 fL (80.0-100.0); MEAN PLATELET VOLUME 10.1 fL (7.4-10.4); RBC 2.77 10x6/uL (4.00-5.40); WBC 4.9 10x3/uL (4.8-10.8)
--- NOTE | 2018-11-04 05:45 | NUR ---
PT HAD LARGE BM CHG BATH AND COMPLETE LINEN CHANGE DENIES SOB OR PAIN VSS CPOC
--- NOTE | 2018-11-04 06:45 | NUR ---
PT SITTING UP IN BED DENIES NEEDS AT THIS TIME
[2018-11-04 07:13] LABS: HEMOGLOBIN 8.4 g/dL (12-16); MCH 29.7 pg (26.0-34.0); MCHC 32.3 g/dL (31.0-37.0); MCV 91.9 fL (80.0-100.0); MEAN PLATELET VOLUME 9.9 fL (7.4-10.4); RBC 2.83 10x6/uL (4.00-5.40); RDW 14.9 % (11.5-14.5)
[2018-11-04 07:26] LABS: ALBUMIN 2.1 g/dL (3.4-5.0); ANION GAP 8.9 mmol/L (8-16); BILIRUBIN - TOTAL 0.52 mg/dL (0.2-1.3); CALCIUM 7.7 mg/dL (8.5-10.1); CREATININE - SERUM 1.2 mg/dL (0.6-1.3); POTASSIUM - SERUM 3.9 mmol/L (3.5-5.1); PROTEIN - SERUM 5.6 g/dL (6.4-8.2)
--- NOTE | 2018-11-04 18:24 | NUR ---
DR BRODERICK AT BEDSIDE-CONTINUE WITH HEPARIN GTT
--- NOTE | 2018-11-04 19:21 | NUR ---
REPORT RECEIVED, SHIFT ASSESSMENT COMPLETED PER FLOW SHEET. AAOX4. RT IJ CVL PATENT, DRESSING C/D/I. DENIES NEEDS AT THIS TIME. CALL LIGHT WITHIN REACH. SEE FLOW SHEET FOR COMPLETE ASSESSMENT. WILL CONTINUE TO MONITOR.
--- NOTE | 2018-11-04 21:05 | NUR ---
SCHEDULED MEDS GIVEN, SEE EMAR FOR DETAILS. WATER PROVIDED. ICE CHIPS PROVIDED PER PATIENT'S REQUEST. DENIES OTHER NEEDS. CALL LIGHT WITHIN REACH.
--- NOTE | 2018-11-04 23:14 | NUR ---
REASSESSMENT COMPLETED PER FLOW SHEET, SEE FOR DETAILS. NO ACUTE CHANGES NOTED. CALL LIGHT WITHIN REACH. WILL CONTINUE TO MONITOR.
[2018-11-05] VITALS (25 sets, daily range): BP systolic 90–152; BP diastolic 36–73
[2018-11-05 00:39] LABS: HEMATOCRIT 26.5 % (36.0-48.0); HEMOGLOBIN 8.6 g/dL (12-16); MCH 30.2 pg (26.0-34.0); MCHC 32.5 g/dL (31.0-37.0); MEAN PLATELET VOLUME 10.1 fL (7.4-10.4); RBC 2.85 10x6/uL (4.00-5.40); WBC 5.2 10x3/uL (4.8-10.8)
--- NOTE | 2018-11-05 01:00 | NUR ---
ASSISSTED PATIENT TO BED PER HER REQUEST, GAIT STEADY. ICE CHIPS PROVIDED PER HER REQUEST. DENIES OTHER NEEDS. CALL LIGHT WITHIN REACH.
--- NOTE | 2018-11-05 03:11 | NUR ---
REASSESSMENT COMPLETED PER FLOW SHEET, SEE FOR DETAILS. NO ACUTE CHANGES NOTED. DENIES NEEDS AT THIS TIME. CALL LIGHT WITHIN REACH. WILL CONTINUE TO MONITOR.
--- NOTE | 2018-11-05 05:03 | NUR ---
XR PERSONNEL AT BEDSIDE FOR AM CHEST XR.
--- NOTE | 2018-11-05 06:00 | NUR ---
COMPLETE BED BATH GIVEN. COMPLETE BED LINEN CHANGE AND JUSTICE CARE PROVIDED. ASSISSTED OOB TO CHAIR. GAIT STEADY. CALL LIGHT WITHIN REACH.
[2018-11-05 06:47] LABS: ALBUMIN 2.2 g/dL (3.4-5.0); ANION GAP 8.6 mmol/L (8-16); BILIRUBIN - TOTAL 0.46 mg/dL (0.2-1.3); CALCIUM 8.2 mg/dL (8.5-10.1); CARBON DIOXIDE 31.7 mmol/L (21.0-32.0); CREATININE - SERUM 1.3 mg/dL (0.6-1.3); POTASSIUM - SERUM 4.3 mmol/L (3.5-5.1); PROTEIN - SERUM 5.9 g/dL (6.4-8.2)
--- NOTE | 2018-11-05 10:22 | NUR ---
AMBULATING WITH PHYSICAL THERAPY
--- NOTE | 2018-11-05 17:00 | NUR ---
PT CALLED NURSE AND STATED R ANKLE-SEVERE PAIN RATED 10/10-AND TRAVELING UP FRONT OF LEG-STATED FEELS LIKE CRYING-NOTED OXYCONDONE GIVEN 1HR PRIOR-DR FIERRO NOTIFIED-NO ADDITIONAL EDEMA-REDNESS TO INSIDE ANKLE NOTED PALPABLE PULSE--ORDER RECIEVED AND NOTED -XRAY OF R ANKLE ORDERED
--- NOTE | 2018-11-05 19:35 | NUR ---
PT RECEIVED WITH EYES OPEN WATCHING TV IN CHAIR AT BEDSIDE, FEET ELEVATED. COMPLAINS OF PAIN TO RIGHT ANKLE, WITH PRN PAIN MEDICATION GIVEN. NO OTHER NEEDS MADE KNOWN. WILL CONTINUE TO OBSERVE.
--- NOTE | 2018-11-05 21:40 | NUR ---
PT REMAINS IN BEDSIDE CHAIR. HS MEDICATIONS GIVEN, TOLERATED WELL. WILL CONTINUE TO OBSERVE.
[2018-11-06] VITALS (22 sets, daily range): BP systolic 87–126; BP diastolic 35–68
[2018-11-06 01:08] LABS: HEMATOCRIT 25.9 % (36.0-48.0); HEMOGLOBIN 8.3 g/dL (12-16); MCH 29.5 pg (26.0-34.0); MCV 92.2 fL (80.0-100.0); MEAN PLATELET VOLUME 10.2 fL (7.4-10.4); RBC 2.81 10x6/uL (4.00-5.40); RDW 14.9 % (11.5-14.5); WBC 6.4 10x3/uL (4.8-10.8)
--- NOTE | 2018-11-06 04:34 | NUR ---
PT TAKEN TO IMAGING VIA WHEELCHAIR. PT TOLERATED TRANSFER.
--- NOTE | 2018-11-06 04:39 | NUR ---
PT RETURNED FROM IMAGING. TRANSFERS TO BEDSIDE CHAIR. TOLERATED WELL. WILL CONTINUE TO OBSERVE.
[2018-11-06 06:01] LABS: ALBUMIN 2.2 g/dL (3.4-5.0); ANION GAP 8.8 mmol/L (8-16); BILIRUBIN - TOTAL 0.43 mg/dL (0.2-1.3); CALCIUM 8.3 mg/dL (8.5-10.1); CARBON DIOXIDE 31.9 mmol/L (21.0-32.0); CREATININE - SERUM 1.3 mg/dL (0.6-1.3); POTASSIUM - SERUM 4.7 mmol/L (3.5-5.1)
--- NOTE | 2018-11-06 07:00 | NUR ---
PT RESTING IN BED C CALL LIGHT IN REACH. SITTING UP IN CHAIR AWAKE ALERT AND ORIENTED. 2L O2 VIA NC. WILL CONTINUE TO MONITOR
--- NOTE | 2018-11-06 09:33 | NUR ---
ASSISTED PATIENT OUT OF CHAIR AND AMBULATED TO GOMEZ AND BACK. PATIENT COMPLAINING OF RIGHT FOOT PAIN PREVENTING HER FROM WALKING FAR TODAY. ASSISTED BACK TO BED SO HENRI GONZALEZ, CAN REMOVE PACER WIRES.
--- NOTE | 2018-11-06 09:47 | NUR ---
NUTRITION F/U NURSING REPORTS PT TOLEATING DIABETIC DIET WITH GOOD INTAKE RECENT MEALS. WILL CONTINUE TO PROVIDE DIET, MONITOR PT PROGRESS. RD FOLLOWING
--- NOTE | 2018-11-06 10:02 | NUR ---
HENRI GONZALEZ, REMOVED PACER WIRES AT THIS TIME. PT LYING IN BED. VSS
--- NOTE | 2018-11-06 11:46 | NUR ---
PT ASSISTED PATIENT UP FROM BED TO CHAIR. SATURATION 87% JUST SITTING ON SIDE OF BED WITHOUT OXYGEN. WILL REPORT TO PLAN NURSE SO PATIENT CAN GO HOME WITH OXYGEN.
--- NOTE | 2018-11-06 12:33 | MORECARE ---
CASE MANAGEMENT DISCHARGE SUMMARY PATIENT: KASSANDRA REYNOLDS UNIT: [id number] ADM DATE: 10/30/18 AGE: 63 : 51 SEX: F ROOM/BED: [facility] AUTHOR: ZEEDOC PHYSICIAN: REFERRING PHYSICIAN: CHRIS FIERRO MD DATE OF SERVICE: 11/06/18 Discharge Plan Patient Name: KASSANDRA REYNOLDS Facility: [facility]:[address] : 1955 Planned Disposition: Anticipated Discharge Date: Discharge Date: Expected LOS: Initial Reviewer: [email or web address] Initial Review Date: 11/03/2018 Generated: 11/06/18 1:33 pm Comments DCP- Discharge Planning Updated by [email or web address]: Shila Aguirre on 11/06/18 11:[address] Patient Name: KASSANDRA REYNOLDS Encounter No: [id number] : 1955 Primary Insurance: MEDICARE A & B Anticipated DC Date: Planned Disposition: External Planned Provider: : D/C IMM explained and signed 11/06/18 @ 1123 DCP follow-up note: Patient and family in agreement with discharge plan. No changes to plan. Case management will follow and assist as needed. 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 RESOURCES FOR POST DISCHARGE OFFERED TO PATIENT. STATES NO NEEDS AT THIS TIME. WILL DC TO HOME WITH FAMILY. CM TO FOLLOW AND ASSIST NEEDED WITH DC PLANNING/NEEDS. Leasing Sales Consultant: Sandra Ly DCPIA - Discharge Planning Initial Assessment Updated by [id number]: Sandra Ly on 11/03/18 3:26 pm * Is the patient Alert and Oriented? Yes * PCP DOESN'T REMEMBER HIS NAME * Pharmacy [facility] * Preadmission Environment Home with Family * ADLs Independent * Other Equipment HAS WALKER, CANE, SC, BC IF NEEDED. * List name and contact numbers for known caregivers / representatives who currently or will assist patient after discharge: ZIA MEDEIROS, * Community resources currently utilized None * Additional services required to return to the preadmission environment? No * Can the patient safely return to the preadmission environment? Yes * Has this patient been hospitalized within the prior 30 days at any hospital? No Coverage Notice Reviewer: [id number] Marques Aguirre Notice Issued Date-Time: 11/06/2018 11:23 Notice Type: IM Discharge Notice Notice Delivered To: Patient Relationship to Patient: Self Route Relief Driver Name: Delivery Method: HAND - Hand Delivered Joycelyn Days: Prior Verbal Notification: Recipient Understood Notice: Yes Recipient Signature: Yes Med Rec Note Co-signed by Attending: Coverage Notice Comment: Last DP export: 11/03/18 2:29 p Patient Name: KASSANDRA REYNOLDS Page [phone] at 1233 All edits/amendments must be made on the electronic document DICTATION DATE: 11/06/18 1233 READINESS PARAPROFESSIONAL: EFRAÍN 11/06/18 1233 RPT#: [id number] DC DATE: STATUS: ADM IN [facility] [address] [place] [address] END OF REPORT
--- NOTE | 2018-11-06 13:35 | NUR ---
NOTIFIED BEATER MACHINE OPERATOR, VONNIE, THAT PATIENT WILL NEED O2 FOR HOME WHEN DISCHARGED.
--- NOTE | 2018-11-06 15:14 | MORECARE ---
CASE MANAGEMENT DISCHARGE SUMMARY PATIENT: KASSANDRA REYNOLDS UNIT: [id number] ADM DATE: 10/30/18 AGE: 63 : 51 SEX: F ROOM/BED: [facility] AUTHOR: ZEEDOC PHYSICIAN: REFERRING PHYSICIAN: CHRIS FIERRO MD DATE OF SERVICE: 11/06/18 Discharge Plan Patient Name: KASSANDRA REYNOLDS Facility: [facility]:[place] : 1955 Planned Disposition: Anticipated Discharge Date: Discharge Date: Expected LOS: Initial Reviewer: [id number] Initial Review Date: 11/03/2018 Generated: 11/06/18 4:14 pm Comments DCP- Discharge Planning Updated by [email or web address]: Shila Aguirre on 11/06/18 11:[address] Patient Name: KASSANDRA REYNOLDS Encounter No: [id number] : 1955 Primary Insurance: MEDICARE A & B Anticipated DC Date: Planned Disposition: External Planned Provider: : D/C IMM explained and signed 11/06/18 @ 1123 DCP follow-up note: Patient and family in agreement with discharge plan. No changes to plan. Case management will follow and assist as needed. 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 RESOURCES FOR POST DISCHARGE OFFERED TO PATIENT. STATES NO NEEDS AT THIS TIME. WILL DC TO HOME WITH FAMILY. CM TO FOLLOW AND ASSIST NEEDED WITH DC PLANNING/NEEDS. Hearing Instrument Specialist: Sandra Ly DCPIA - Discharge Planning Initial Assessment Updated by [id number]: Sandra Ly on 11/03/18 3:26 pm * Is the patient Alert and Oriented? Yes * PCP DOESN'T REMEMBER HIS NAME * Pharmacy [facility] * Preadmission Environment Home with Family * ADLs Independent * Other Equipment HAS WALKER, CANE, SC, BC IF NEEDED. * List name and contact numbers for known caregivers / representatives who currently or will assist patient after discharge: ZIA MEDEIROS, * Community resources currently utilized None * Additional services required to return to the preadmission environment? No * Can the patient safely return to the preadmission environment? Yes * Has this patient been hospitalized within the prior 30 days at any hospital? No External Providers External Provider: [facility] Next Contact Date: Service Request Date: Service Type: Resolution: Reviewer: Comments: Coverage Notice Reviewer: [id number] - Shila Aguirre Notice Issued Date-Time: 11/06/2018 11:23 Notice Type: IM Discharge Notice Notice Delivered To: Patient Relationship to Patient: Self Subgrade Tester Name: Delivery Method: HAND - Hand Delivered Joycelyn Days: Prior Verbal Notification: Recipient Understood Notice: Yes Recipient Signature: Yes Med Rec Note Co-signed by Attending: Coverage Notice Comment: Last DP export: 11/06/18 11:33 a Patient Name: KASSANDRA REYNOLDS Page [phone] at 1514 All edits/amendments must be made on the electronic document DICTATION DATE: 11/06/181512 MEDICAL APPLIANCE MAKER: EFRAÍN 11/06/181512 RPT#: [id number] DC DATE: STATUS: ADM IN [facility] [address] [place] [address] END OF REPORT
--- NOTE | 2018-11-06 15:30 | NUR ---
OBTAINED OKAY TO START PATIENT ON ELIQUIS FROM DR. MENDOSA NURSE LISA.
--- NOTE | 2018-11-06 16:00 | NUR ---
ASSISTED PATIENT TO BED AND LAYED IN SUPINE POSITION TO REMOVE RIGHT IJ CENTRAL LINE. DRESSED WITH GUAZE AND TEGADERM. VSS.
--- NOTE | 2018-11-06 16:37 | NUR ---
ALL PEDAL PULSES PALPABLE.
--- NOTE | 2018-11-06 17:01 | MORECARE ---
CASE MANAGEMENT DISCHARGE SUMMARY PATIENT: KASSANDRA REYNOLDS UNIT: [id number] ADM DATE: 10/30/18 AGE: 63 : 51 SEX: F ROOM/BED: [facility] AUTHOR: ZEE,DOC PHYSICIAN: REFERRING PHYSICIAN: CHRIS FIERRO MD DATE OF SERVICE: 11/06/18 Discharge Plan Patient Name: KASSANDRA REYNOLDS Facility: [facility]:[place] : 1955 Planned Disposition: Anticipated Discharge Date: Discharge Date: Expected LOS: Initial Reviewer: [email or web address] Initial Review Date: 11/03/2018 Generated: 11/06/18 6:00 pm Comments DCP- Discharge Planning Updated by [email or web address]: Shila Aguirre on 11/06/18 3:[address] CM requested walk test for need of home 02. Patient 02 sat was 87% on RA. CM spoke with patient and sent records to [facility] for home 02. Plan for patient to potentially discharge / Tue. CM will continue to follow and assist as needed with discharge planning / needs. DCP- Discharge Planning Updated by [id number]: Shila Aguirre on 11/06/18 11:[address] Patient Name: KASSANDRA REYNOLDS Encounter No: [id number] : 1955 Primary Insurance: MEDICARE A & B Anticipated DC Date: Planned Disposition: External Planned Provider: : D/C IMM explained and signed 11/06/18 @ 1123 DCP follow-up note: Patient and family in agreement with discharge plan. No changes to plan. Case management will follow and assist as needed. 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 RESOURCES FOR POST DISCHARGE OFFERED TO PATIENT. STATES NO NEEDS AT THIS TIME. WILL DC TO HOME WITH FAMILY. CM TO FOLLOW AND ASSIST NEEDED WITH DC PLANNING/NEEDS. Time Lock Expert: Sandra Ly DCPIA - Discharge Planning Initial Assessment Updated by [id number]: Sandra Ly on 11/03/18 3:26 pm * Is the patient Alert and Oriented? Yes * PCP DOESN'T REMEMBER HIS NAME * Pharmacy [facility] * Preadmission Environment Home with Family * ADLs Independent * Other Equipment HAS WALKER, CANE, SC, BC IF NEEDED. * List name and contact numbers for known caregivers / representatives who currently or will assist patient after discharge: ZIA MEDEIROS, * Community resources currently utilized None * Additional services required to return to the preadmission environment? No * Can the patient safely return to the preadmission environment? Yes * Has this patient been hospitalized within the prior 30 days at any hospital? No Coverage Notice Reviewer: [id number] Marques Aguirre Notice Issued Date-Time: 11/06/2018 11:23 Notice Type: IM Discharge Notice Notice Delivered To: Patient Relationship to Patient: Self Metal Box Maker Name: Delivery Method: HAND - Hand Delivered Joycelyn Days: Prior Verbal Notification: Recipient Understood Notice: Yes Recipient Signature: Yes Med Rec Note Co-signed by Attending: Coverage Notice Comment: Last DP export: 11/06/18 2:14 p Patient Name: KASSANDRA REYNOLDS Page [phone] at 1701 All edits/amendments must be made on the electronic document DICTATION DATE: 11/06/181699 PRE BILLING SPECIALIST: EFRAÍN 11/06/181699 RPT#: [id number] DC DATE: STATUS: ADM IN [facility] [address] [place] [address] END OF REPORT
--- NOTE | 2018-11-06 18:38 | TEE ---
PATIENT:KASSANDRA REYNOLDS MEDICAL RECORD: [id number] LOCATION:[place] [address] AGE OF PATIENT: 63 ADMISSION DATE: 10/30/18 SEX: F REFERRING PHYSICIAN: INTERPRETING PHYSICIAN: THEODORA RAINES MD TRANSESOPHAGEAL ECHOCARDIOGRAM Date: 10/30/18 ESTHER CHARGE Y INDICATIONS: CABG PREMEDICATIONS: PATIENT'S RESPONSE PROCEDURE DOPPLER MEASUREMENTS: LVIT LA 3.4 PA RA LVOT RVOT Asc. Ao AV Gradient Peak AV Mean AV Area MV Gradient Peak MV Mean MV Area INTERPRETATION: Doppler: 2-D: EF 55-60% COLOR FLOW DOPPLER NORMAL SALINE STUDY: MISCELLANOUS: DIAGNOSIS: PLAN: Ammonia Print Operator:3 Dr. Bentley It Application Development Manager: Akshat HICKS COMMENTS: SRI PATIENT DATE OF SERVICE: 10/30/2018 PROCEDURE: Transesophageal echo evaluation of valvular structures during bypass surgery. FINDINGS: 1. Left ventricular chamber size is within normal limits. Left ventricular systolic function is normal. Overall ejection fraction estimated at 55% to 60%. 2. Left atrium, right atrium, and right ventricular chamber size is within TRANSESOPHAGEAL ECHOCARDIOGRAM REPORT [id number] KASSANDRA REYNOLDS normal limits. 3. Valvular structures have normal structure and motion. 4. Doppler interrogation reveals no significant valvular insufficiency or stenosis. 5. No evidence of pericardial effusion or left ventricular thrombus. TRANSINT:[id number] Voice Confirmation ID: [id number] DOCUMENT ID: [id number] 1838 CC: [id number] DICTATION DATE: 10/31/18 0641 LENS GENERATOR: 10/31/18 0830 ADM IN [place] [id number] [place] [id number]
--- NOTE | 2018-11-06 18:38 | EC ---
PATIENT:KASSANDRA REYNOLDS DATE OF SERVICE: 10/30/18 SEX: F MEDICAL RECORD: [id number] DATE OF : 51 LOCATION:.[place] [address] AGE OF PATIENT: 63 ADMISSION DATE: 10/30/18 REFERRING PHYSICIAN: INTERPRETING PHYSICIAN: THEODORA RAINES MD ECHOCARDIOGRAM REPORT ECHO CHARGES 5 ECHO LIMITED Date: 11/02/18 CLINICAL DIAGNOSIS: REASSSESS FOR PERICARDIAL EFFUSION ECHOCARDIOGRAPHIC MEASUREMENTS (adult normal given) AC root (d.<3.7cm) cm LV Septum d (<1.2 cm> cm Valve Excursion cm LV Septum (systole) cm Left Atria (s.<4.0cm> cm LVPW d(<1.2cm) cm RV (d.<2.3cm) cm LVPW (sytole) cm LV diastole(<5.6CM) 5.3 cm MV E-F(>70mm/sec) cm LV systole 4.1 cm LVOT Diameter cm MV exc.(>10mm) cm Est.ejection fraction (50-75%) % DOPPLER: LVIT cm/sec A cm/sec E cm/sec LA 3.4 cm/sec RVSP mmHg LVOT cm/sec AOP1/2T m/s Asc. Ao cm/sec RVOT cm/sec RA cm/sec PA cm/sec AV Gradient Peak mmHg AV Mean mmHg AV Area cm MV Gradient Peak mmHg MV Mean mmHg MV Area cm COMMENTS: SRI PATIENT Mechanical Project Manager: Akshat HICKS Senior Media Planner: 3 Dr. Bentley TAPE# PACS Pericardial Effusion Y DATE OF SERVICE: 11/02/2018 LIMITED ECHOCARDIOGRAM DATE OF SERVICE: 11/02/2018 FINDINGS: Left ventricular chamber size is within normal limits. Left ventricular systolic function is preserved at 50% to 55%. TRANSINT:[id number] Voice Confirmation ID: [id number] DOCUMENT ID: [id number] ECHOCARDIOGRAM REPORT [id number] KASSANDRA REYNOLDS THEODORA KELLY MD at 1838 CC: [id number] DICTATION DATE: 11/02/18 1236 BRIQUETTE MAKER: 11/02/18 1244 [place] [address]
--- NOTE | 2018-11-06 18:38 | EC ---
PATIENT:KASSANDRA REYNOLDS DATE OF SERVICE: 10/30/18 SEX: F MEDICAL RECORD: [id number] DATE OF : [birth year] LOCATION:[place] [address] AGE OF PATIENT: 63 ADMISSION DATE: 10/30/18 REFERRING PHYSICIAN: INTERPRETING PHYSICIAN: THEODORA RAINES MD ECHOCARDIOGRAM REPORT ECHO CHARGES 5 ECHO LIMITED Date: 11/01/18 CLINICAL DIAGNOSIS: POST OP CABG/LOW EF EFFUSION ECHOCARDIOGRAPHIC MEASUREMENTS (adult normal given) AC root (d.<3.7cm) cm LV Septum d (<1.2 cm> cm Valve Excursion cm LV Septum (systole) cm Left Atria (s.<4.0cm> cm LVPW d(<1.2cm) cm RV (d.<2.3cm) cm LVPW (sytole) cm LV diastole(<5.6CM) 5.3 cm MV E-F(>70mm/sec) cm LV systole 4.1 cm LVOT Diameter cm MV exc.(>10mm) cm Est.ejection fraction (50-75%) % DOPPLER: LVIT cm/sec A cm/sec E cm/sec LA 3.4 cm/sec RVSP mmHg LVOT cm/sec AOP1/2T m/s Asc. Ao cm/sec RVOT cm/sec RA cm/sec PA cm/sec AV Gradient Peak mmHg AV Mean mmHg AV Area cm MV Gradient Peak mmHg MV Mean mmHg MV Area cm COMMENTS: SRI PATIENT Laundry Supervisor: 2 SIDDHARTH HICKS Vegetable Farm Manager: 3 Dr. Bentley TAPE# PACS Pericardial Effusion N DATE OF SERVICE: 11/01/2018 LIMITED ECHOCARDIOGRAM FOR EJECTION FRACTION Left ventricular chamber size is within normal limits. Left ventricular systolic function is preserved at 55%. TRANSINT:[id number] Voice Confirmation ID: [id number] DOCUMENT ID: [id number] ECHOCARDIOGRAM REPORT [id number] GAILKASSANDRA MORENO THEODORA KELLY MD at 1838 CC: [id number] DICTATION DATE: 11/01/18 1705 FINISHED STOCK INSPECTOR: 11/01/18 1903 ADM IN [place] [address] [place] [address]
--- NOTE | 2018-11-06 19:47 | NUR ---
REPORT RECEIVED, SHIFT ASSESSMENT COMPLETED PER FLOW SHEET. AAOX4. PPP. 4 L O2 VIA NC, O2 SAT 97%, O2 TURNED DOWN TO 3 L NC, O2 SAT 96% AFTER INTERVENTION. ICE CHIPS PROVIDED PER PATIENT'S REQUEST. DENIES OTHER NEEDS. CALL LIGHT WITHIN REACH. SEE FLOW SHEET FOR COMPLETE ASSESSMENT. WILL CONTINUE TO MONITOR.
--- NOTE | 2018-11-06 20:33 | NUR ---
SCHEDULED MEDS GIVEN, WATER PROVIDED, NO DIFFICULTY SWALLOWING. DENIES NEEDS. CALL LIGHT WITHIN REACH.
--- NOTE | 2018-11-06 22:00 | NUR ---
RESTING IN BED, NO ACUTE DISTRESS NOTED, DENIES NEEDS. WILL CONTINUE TO MONITOR.
--- NOTE | 2018-11-06 23:21 | NUR ---
REASSESSMENT COMPLETED PER FLOW SHEET, SEE FOR DETAILS. NO ACUTE DISTRESS NOTED. DENIES NEEDS. CALL LIGHT WITHIN REACH. WILL CONTINUE TO MONITOR.
[2018-11-07] VITALS (24 sets, daily range): BP systolic 91–119; BP diastolic 36–63
--- NOTE | 2018-11-07 01:00 | NUR ---
RESTING, DENIES PAIN OR NEEDS. CALL LIGHT WITHIN REACH. WILL CONTINUE TO MONITOR.
--- NOTE | 2018-11-07 03:08 | NUR ---
REASSESSMENT COMPLETED PER FLOW SHEET, SEE FOR DETAILS. DENIES PAIN OR NEEDS. CALL LIGHT WITHIN REACH. WILL CONTINUE TO MONITOR.
--- NOTE | 2018-11-07 05:00 | NUR ---
DENIES PAIN OR NEEDS AT THIS TIME. WILL CONTINUE TO MONITOR. CALL LIGHT WITHIN REACH.
[2018-11-07 06:07] LABS: HEMOGLOBIN 8.6 g/dL (12-16); MCH 29.6 pg (26.0-34.0); MCHC 31.9 g/dL (31.0-37.0); MCV 92.8 fL (80.0-100.0); MEAN PLATELET VOLUME 10.3 fL (7.4-10.4); RBC 2.91 10x6/uL (4.00-5.40); RDW 14.8 % (11.5-14.5)
[2018-11-07 06:29] LABS: ALBUMIN 2.3 g/dL (3.4-5.0); ANION GAP 8.8 mmol/L (8-16); BILIRUBIN - TOTAL 0.52 mg/dL (0.2-1.3); CALCIUM 8.9 mg/dL (8.5-10.1); CARBON DIOXIDE 35.1 mmol/L (21.0-32.0); CREATININE - SERUM 1.5 mg/dL (0.6-1.3); POTASSIUM - SERUM 4.9 mmol/L (3.5-5.1); PROTEIN - SERUM 6.4 g/dL (6.4-8.2)
--- NOTE | 2018-11-07 07:46 | NUR ---
REPORT RECEIVED. PT UP IN CHAIR AT BEDSIDE. VOICES NO COMPLAINTS. BREAKFAST TRAY HAS BEEN PROVIDED. CALL LIGHT IN REACH.
--- NOTE | 2018-11-07 09:46 | NUR ---
PHYSICAL THERAPIST BY TO SEE PATIENT. WAS ASKED TO HOLD OFF WALKING BY CV SURGERY UNTIL SEE RESULTS OF MRI.
--- NOTE | 2018-11-07 12:11 | NUR ---
PT OFF FLOOR ROUGE MIXER AT BEDSIDE. ICU MONITORS REMOVED. VSS.
--- NOTE | 2018-11-07 12:50 | NUR ---
CANCELLED DUPLICATE ORDER FOR LUMBAR MRI THAT WAS ORDERED BY Joie BRIAN. OFFICE WAS CALLED AND NOTIFIED OF THIS WELL.
--- NOTE | 2018-11-07 15:04 | NUR ---
REASSESSMENT DONE SEE FLOW SHEET VSS.
--- NOTE | 2018-11-07 16:36 | NUR ---
Rehab Note- Acute Inpatient Rehab prescreen order received. [facility] a good inpatient acute rehab candidiate. Has a pending consult for Dr Hubbard, will await his recommendation. Will follow at this time. Thank you for this referral! Julianne White RN Clinical Liaison, [facility] Rehab
--- NOTE | 2018-11-07 17:02 | NUR ---
PT UP IN CHAIR EATING DINNER. VSS. NO SIGNS OF ACUTE DISTRESS NOTED.
--- NOTE | 2018-11-07 17:48 | MORECARE ---
CASE MANAGEMENT DISCHARGE SUMMARY PATIENT: KASSANDRA REYNOLDS UNIT: [id number] ADM DATE: 10/30/18 AGE: 63 : 51 SEX: F ROOM/BED: [facility] AUTHOR: ZEE,DOC PHYSICIAN: REFERRING PHYSICIAN: CHRIS FIERRO MD DATE OF SERVICE: 11/07/18 Discharge Plan Patient Name: KASSANDRA REYNOLDS Facility: [facility]:[place] : 1955 Planned Disposition: Anticipated Discharge Date: Discharge Date: Expected LOS: Initial Reviewer: [email or web address] Initial Review Date: 11/03/2018 Generated: 11/07/18 6:48 pm Comments DCP- Discharge Planning Updated by [id number]: Shila Aguirre on 11/06/18 3:[address] CM requested walk test for need of home 02. Patient 02 sat was 87% on RA. CM spoke with patient and sent records to [facility] for home 02. Plan for patient to potentially discharge / Tue. CM will continue to follow and assist as needed with discharge planning / needs. DCP- Discharge Planning Updated by [email or web address]: Shila Aguirre on 11/06/18 11:[address] Patient Name: KASSANDRA REYNOLDS Encounter No: [id number] : 1955 Primary Insurance: MEDICARE A & B Anticipated DC Date: Planned Disposition: External Planned Provider: : D/C IMM explained and signed 11/06/18 @ 1123 DCP follow-up note: Patient and family in agreement with discharge plan. No changes to plan. Case management will follow and assist as needed. 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 RESOURCES FOR POST DISCHARGE OFFERED TO PATIENT. STATES NO NEEDS AT THIS TIME. WILL DC TO HOME WITH FAMILY. CM TO FOLLOW AND ASSIST NEEDED WITH DC PLANNING/NEEDS. Roof Mechanic: Sandra Ly DCPIA - Discharge Planning Initial Assessment Updated by [email or web address]: Sandra Ly on 11/03/18 3:26 pm * Is the patient Alert and Oriented? Yes * PCP DOESN'T REMEMBER HIS NAME * Pharmacy [facility] * Preadmission Environment Home with Family * ADLs Independent * Other Equipment HAS WALKER, CANE, SC, BC IF NEEDED. * List name and contact numbers for known caregivers / representatives who currently or will assist patient after discharge: ZIA MEDEIROS, * Community resources currently utilized None * Additional services required to return to the preadmission environment? No * Can the patient safely return to the preadmission environment? Yes * Has this patient been hospitalized within the prior 30 days at any hospital? No Coverage Notice Reviewer: [id number] Marques Aguirre Notice Issued Date-Time: 11/06/2018 11:23 Notice Type: IM Discharge Notice Notice Delivered To: Patient Relationship to Patient: Self Equipment Sterilizer Name: Delivery Method: HAND - Hand Delivered Joycelyn Days: Prior Verbal Notification: Recipient Understood Notice: Yes Recipient Signature: Yes Med Rec Note Co-signed by Attending: Coverage Notice Comment: Last DP export: 11/06/18 4:01 p Patient Name: KASSANDRA REYNOLDS Page 66081 at 1748 All edits/amendments must be made on the electronic document DICTATION DATE: 11/07/181746 ELECTRICAL CHECKOUT MECHANIC: EFRAÍN 11/07/181746 RPT#: [id number] DC DATE: STATUS: ADM IN [facility] [address] [place] [address] END OF REPORT
--- NOTE | 2018-11-07 19:58 | NUR ---
PT RECEIVED IN CHAIR. NO S/S OF DISTRESS. JUSTICE PATENT. COMPLAINS OF PAIN TO RIGHT LOWER EXTREMETY, CHECK ON AVAILABLITY OF NEXT DOSE. NO OTHER NEEDS OR CONCERNS NOTED. CALL LIGHT IN REACH. WILL CONTINUE TO OBSERVE.
--- NOTE | 2018-11-07 20:02 | MORECARE ---
CASE MANAGEMENT DISCHARGE SUMMARY PATIENT: KASSANDRA REYNOLDS UNIT: [id number] ADM DATE: 10/30/18 AGE: 63 : 53 SEX: F ROOM/BED: [facility] AUTHOR: ZEE,DOC PHYSICIAN: REFERRING PHYSICIAN: CHRIS FIERRO MD DATE OF SERVICE: 11/07/18 Discharge Plan Patient Name: KASSANDRA REYNOLDS Facility: [facility]:[place] : 1955 Planned Disposition: Anticipated Discharge Date: Discharge Date: Expected LOS: Initial Reviewer: [email or web address] Initial Review Date: 11/03/2018 Generated: 11/07/18 9:01 pm Comments DCP- Discharge Planning Updated by [email or web address]: Shila Aguirre on 11/07/18 7:[address] CM [facility] Dr. Griffiths signed off on orders for Home [address] Griffiths also requested for Nebulizer upon discharge. Patient is having pain in her leg/ foot and know she is being seen by ortho and neurosurgery. CM also received order for Inpatient Prescreen. CM notified Julianne of screen. Rehab will follow patient awaiting to see what the plan is with neuro and ortho. CM will continue to follow and assist as needed with discharge planning / needs. DCP- Discharge Planning Updated by [email or web address]: Shila Aguirre on 11/06/18 3:[address] CM requested walk test for need of home 02. Patient 02 sat was 87% on RA. CM spoke with patient and sent records to [facility] for home 02. Plan for patient to potentially discharge / Tue. CM will continue to follow and assist as needed with discharge planning / needs. DCP- Discharge Planning Updated by [email or web address]: Shila Aguirre on 11/06/18 11:[address] Patient Name: KASSANDRA REYNOLDS Encounter No: [id number] : 1955 Primary Insurance: MEDICARE A & B Anticipated DC Date: Planned Disposition: External Planned Provider: : D/C IMM explained and signed 11/06/18 @ 1123 DCP follow-up note: Patient and family in agreement with discharge plan. No changes to plan. Case management will follow and assist as needed. 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 RESOURCES FOR POST DISCHARGE OFFERED TO PATIENT. STATES NO NEEDS AT THIS TIME. WILL DC TO HOME WITH FAMILY. CM TO FOLLOW AND ASSIST NEEDED WITH DC PLANNING/NEEDS. Occupational Medicine Officer: Sandra Ly DCPIA - Discharge Planning Initial Assessment Updated by [email or web address]: Sandra Ly on 11/03/18 3:26 pm * Is the patient Alert and Oriented? Yes * PCP DOESN'T REMEMBER HIS NAME * Pharmacy [facility] * Preadmission Environment Home with Family * ADLs Independent * Other Equipment HAS WALKER, CANE, SC, BC IF NEEDED. * List name and contact numbers for known caregivers / representatives who currently or will assist patient after discharge: ZIA MEDEIROS, * Community resources currently utilized None * Additional services required to return to the preadmission environment? No * Can the patient safely return to the preadmission environment? Yes * Has this patient been hospitalized within the prior 30 days at any hospital? No Coverage Notice Reviewer: [id number] - Shila Aguirre Notice Issued Date-Time: 11/06/2018 11:23 Notice Type: IM Discharge Notice Notice Delivered To: Patient Relationship to Patient: Self Records And Tape Recordings Engineer Name: Delivery Method: HAND - Hand Delivered Joycelyn Days: Prior Verbal Notification: Recipient Understood Notice: Yes Recipient Signature: Yes Med Rec Note Co-signed by Attending: Coverage Notice Comment: Last DP export: 11/07/18 4:48 p Patient Name: KASSANDRA REYNOLDS Page [phone] at 2002 All edits/amendments must be made on the electronic document DICTATION DATE: 11/07/182000 MACHINE CLERICAL VERIFIER: EFRAÍN 11/07/182000 RPT#: [id number] DC DATE: STATUS: ADM IN [facility] [address] [place] [address] END OF REPORT
--- NOTE | 2018-11-07 21:30 | NUR ---
SCHEDULED MEDICATIONS GIVEN PER MAR, TOLERATED WELL. NO NEEDS MADE KNOWN. CALL LIGHT IN REACH. WILL CONTINUE TO OBSERVE.
--- NOTE | 2018-11-07 23:16 | NUR ---
REASSESSMENT COMPLETED, SEE FLOW SHEET. CALL LIGHT IN REACH. WILL CONTINUE TO OBSERVE
[2018-11-08] VITALS (13 sets, daily range): BP systolic 94–124; BP diastolic 35–58
--- NOTE | 2018-11-08 03:30 | NUR ---
REASSESSMENT COMPLETED. SEE FLOW SHEET. NO NEEDS MADE KNOWN. CALL LIGHT IN REACH
--- NOTE | 2018-11-08 08:35 | NUR ---
BREAKFAST TRAY SERVED AND PT ATE WITH OUT PROBLEMS. DR MANNING HERE THIS AM. PT C/P PAIN TO FOOT. PO PAIN MEDS GIVEN.
--- NOTE | 2018-11-08 09:47 | NUR ---
NUTRITION F/U PT UP TO CHAIR, REPORTS GOOD PO INTAKE DIABETIC DIET. WILL CONTINUE TO PROVIDE DIET, MONITOR PO INTAKE. RD FOLLOWING
--- NOTE | 2018-11-08 10:50 | NUR ---
BED SIDE REPORT GIVEN AT THIS TIME. 3L NC. VSS. WILL CONTINUE TO MONITOR.
--- NOTE | 2018-11-08 12:00 | NUR ---
LUNCH TRAY SERVED ATE HALF OF MEAL. NAPPING WHILE UP IN CHAIR. RIGHT LEG VERY PAINFUL WITH MOVEMENT. RIGHT LEG SWOLLEN GREATHER THAN LEFT LEG. SLIGHTLY WARMER TO TOUCH THAN LEFT LEG. NO DISTRESS. JUSTICE CATH PATENT DRAINING MARCEL URINE. NO IV ACCESS NOTED MONITOR SR.
--- NOTE | 2018-11-08 14:12 | NUR ---
SLEEPING UP IN CHAIR. NO DISTRESS. RESP DEEP AND REGULAR
--- NOTE | 2018-11-08 17:16 | NUR ---
REPORT CALLED TO KAYDEN IN REHAB. PATIENT TO TRANSFER TO ROOM 1116. LISA WITH DR. FIERRO, DR. LLOYD NOTIFIED OF TRANSFER TO REHAB
--- NOTE | 2018-11-08 17:35 | MORECARE ---
CASE MANAGEMENT DISCHARGE SUMMARY PATIENT: KASSANDRA REYNOLDS UNIT: [id number] ADM DATE: 10/30/18 AGE: 63 : 53 SEX: F ROOM/BED: D.2313 AUTHOR: ZEE,DOC PHYSICIAN: REFERRING PHYSICIAN: CHRIS FIERRO MD DATE OF SERVICE: 11/08/18 Discharge Plan Patient Name: KASSANDRA REYNOLDS Facility: [facility]:[place] : 1955 Planned Disposition: Anticipated Discharge Date: Discharge Date: Expected LOS: Initial Reviewer: [email or web address] Initial Review Date: 11/03/2018 Generated: 11/08/18 6:35 pm Comments DCP- Discharge Planning Updated by [id number]: Shila Aguirre on 11/08/18 4:[address] Patient was cleared by physicians to go to inpatient Rehab. Julianne notified and patient will go to inpatient rehab after screen is completed today. CM will continue to follow and assist as needed with discharge planning / needs. DCP- Discharge Planning Updated by [email or web address]: Shila Aguirre on 11/07/18 7:[address] CM received orders from [facility] and Dr. Griffiths signed off on orders for Home [address] Griffiths also requested for Nebulizer upon discharge. Patient is having pain in her leg/ foot and know she is being seen by ortho and neurosurgery. CM also received order for Inpatient Prescreen. CM notified Julianne of screen. Rehab will follow patient awaiting to see what the plan is with neuro and ortho. CM will continue to follow and assist as needed with discharge planning / needs. DCP- Discharge Planning Updated by [id number]: Shila Aguirre on 11/06/18 3:[address] CM requested walk test for need of home 02. Patient 02 sat was 87% on RA. CM spoke with patient and sent records to [facility] for home 02. Plan for patient to potentially discharge / Tue. CM will continue to follow and assist as needed with discharge planning / needs. DCP- Discharge Planning Updated by [email or web address]: Shila Aguirre on 11/06/18 11:[address] Patient Name: KASSANDRA REYNOLDS Encounter No: [id number] : 1955 Primary Insurance: MEDICARE A & B Anticipated DC Date: Planned Disposition: External Planned Provider: : D/C IMM explained and signed 11/06/18 @ 1123 DCP follow-up note: Patient and family in agreement with discharge plan. No changes to plan. Case management will follow and assist as needed. 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 RESOURCES FOR POST DISCHARGE OFFERED TO PATIENT. STATES NO NEEDS AT THIS TIME. WILL DC TO HOME WITH FAMILY. CM TO FOLLOW AND ASSIST NEEDED WITH DC PLANNING/NEEDS. Fire Code Inspector: Sandra Ly DCPIA - Discharge Planning Initial Assessment Updated by [email or web address]: Sandra Ly on 11/03/18 3:26 pm * Is the patient Alert and Oriented? Yes * PCP DOESN'T REMEMBER HIS NAME * Pharmacy [facility] * Preadmission Environment Home with Family * ADLs Independent * Other Equipment HAS WALKER, CANE, SC, BC IF NEEDED. * List name and contact numbers for known caregivers / representatives who currently or will assist patient after discharge: ZIA MEDEIROS, * Community resources currently utilized None * Additional services required to return to the preadmission environment? No * Can the patient safely return to the preadmission environment? Yes * Has this patient been hospitalized within the prior 30 days at any hospital? No Coverage Notice Reviewer: [id number] - Shila Aguirre Notice Issued Date-Time: 11/06/2018 11:23 Notice Type: IM Discharge Notice Notice Delivered To: Patient Relationship to Patient: Self Handstitching Machine Collar Feller Name: Delivery Method: HAND - Hand Delivered Joycelyn Days: Prior Verbal Notification: Recipient Understood Notice: Yes Recipient Signature: Yes Med Rec Note Co-signed by Attending: Coverage Notice Comment: Last DP export: 11/07/18 7:02 p Patient Name: KASSANDRA REYNOLDS Page [phone] at 1735 All edits/amendments must be made on the electronic document DICTATION DATE: 11/08/181734 LOSS PREVENTION OPERATIONS MANAGER: EFRAÍN 11/08/181734 RPT#: [id number] DC DATE: STATUS: ADM IN [facility] [address] [place] [address] END OF REPORT
[2018-11-08] MEDS ORDERED: PROVENTIL/2.5 MG/3 M INH (18:02)
[2018-11-08] MEDS ORDERED: IPRAT-ALBUT 0.5-3 ML UPD (18:03)
[2018-11-08] MEDS ORDERED: ELIQUIS5 MG PO (18:03)
[2018-11-08] MEDS ORDERED: BAYER CHEWABLE81 MG PO (18:04)
[2018-11-08] MEDS ORDERED: COREG 3.1253.125 MG PO (18:04)
[2018-11-08] MEDS ORDERED: ZOLOFT100 MG PO (18:04)
[2018-11-08] MEDS ORDERED: PERCOCET 5-3251 TAB PO (18:05)
[2018-11-08] MEDS ORDERED: PULMICORT0.5 MG/21 INH (18:05)
[2018-11-08] MEDS ORDERED: COLACE100 MG PO (18:06)
[2018-11-08] MEDS ORDERED: MUCINEX DM ER1 EAC1 PO (18:06)
[2018-11-08] MEDS ORDERED: SENNA LAXATIVE8.6 MG PO (18:08)
--- NOTE | 2018-11-08 18:32 | MORECARE ---
CASE MANAGEMENT DISCHARGE SUMMARY PATIENT: KASSANDRA REYNOLDS UNIT: [id number] ADM DATE: 10/30/18 AGE: 63 : 53 SEX: F ROOM/BED: D.2313 AUTHOR: ZEE,DOC PHYSICIAN: REFERRING PHYSICIAN: CHRIS FIERRO MD DATE OF SERVICE: 11/08/18 Discharge Plan Patient Name: KASSANDRA REYNOLDS Facility: [facility]:[place] : 1955 Planned Disposition: Anticipated Discharge Date: Discharge Date: 11/08/2018 Expected LOS: Initial Reviewer: [email or web address] Initial Review Date: 11/03/2018 Generated: 11/08/18 7:32 pm Comments DCP- Discharge Planning Updated by [email or web address]: Shila Aguirre on 11/08/18 4:[address] Patient was cleared by physicians to go to inpatient Rehab. Julianne notified and patient will go to inpatient rehab after screen is completed today. CM will continue to follow and assist as needed with discharge planning / needs. DCP- Discharge Planning Updated by [email or web address]: Shila Aguirre on 11/07/18 7:[address] CM received orders from [facility] and Dr. Griffiths signed off on orders for Home [address] Griffiths also requested for Nebulizer upon discharge. Patient is having pain in her leg/ foot and know she is being seen by ortho and neurosurgery. CM also received order for Inpatient Prescreen. CM notified Julianne of screen. Rehab will follow patient awaiting to see what the plan is with neuro and ortho. CM will continue to follow and assist as needed with discharge planning / needs. DCP- Discharge Planning Updated by [email or web address]: Shila Aguirre on 11/06/18 3:[address] CM requested walk test for need of home 02. Patient 02 sat was 87% on RA. CM spoke with patient and sent records to [facility] for home 02. Plan for patient to potentially discharge / Tue. CM will continue to follow and assist as needed with discharge planning / needs. DCP- Discharge Planning Updated by [email or web address]: Shila Aguirre on 11/06/18 11:[address] Patient Name: KASSANDRA REYNOLDS Encounter No: [id number] : 1955 Primary Insurance: MEDICARE A & B Anticipated DC Date: Planned Disposition: External Planned Provider: : Desiree/Merlyn IMM explained and signed 11/06/18 @ 1123 DCP follow-up note: Patient and family in agreement with discharge plan. No changes to plan. Case management will follow and assist as needed. 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 RESOURCES FOR POST DISCHARGE OFFERED TO PATIENT. STATES NO NEEDS AT THIS TIME. WILL DC TO HOME WITH FAMILY. CM TO FOLLOW AND ASSIST NEEDED WITH DC PLANNING/NEEDS. Hardboard Press Operator: Sandra Ly DCPIA - Discharge Planning Initial Assessment Updated by [email or web address]: Sandra Ly on 11/03/18 3:26 pm * Is the patient Alert and Oriented? Yes * PCP DOESN'T REMEMBER HIS NAME * Pharmacy [facility] * Preadmission Environment Home with Family * ADLs Independent * Other Equipment HAS WALKER, CANE, SC, BC IF NEEDED. * List name and contact numbers for known caregivers / representatives who currently or will assist patient after discharge: ZIA MEDEIROS, * Community resources currently utilized None * Additional services required to return to the preadmission environment? No * Can the patient safely return to the preadmission environment? Yes * Has this patient been hospitalized within the prior 30 days at any hospital? No Coverage Notice Reviewer: [id number] - Shila Aguirre Notice Issued Date-Time: 11/06/2018 11:23 Notice Type: IM Discharge Notice Notice Delivered To: Patient Relationship to Patient: Self Pricing Associate Name: Delivery Method: HAND - Hand Delivered Joycelyn Days: Prior Verbal Notification: Recipient Understood Notice: Yes Recipient Signature: Yes Med Rec Note Co-signed by Attending: Coverage Notice Comment: Last DP export: 11/08/18 4:35 p Patient Name: KASSANDRA REYNOLDS Page [phone] at 1832 All edits/amendments must be made on the electronic document DICTATION DATE: 11/08/181831 MATHS TUTOR: EFRAÍN 11/08/181831 RPT#: [id number] DC DATE:11/08/18 STATUS: DIS IN [facility] [address] [place] [address] END OF REPORT
== END 2018-11-08 18:22 | DRG 235 ==
LOC: D.CVICU 10-30 05:05 → D.SDCHOLD 10-30 05:05 → D.CVICU 10-30 12:53 → D.ICU 11-08 10:37
PROVIDERS: Internal Medicine Nephrology; ADMIT Thoracic Surgery (Cardiothoracic Vascular Surgery); ATTEND Thoracic Surgery (Cardiothoracic Vascular Surgery)
PROC: 021109W Bypass Coronary Artery, Two Arteries from Aorta with Autologous Venous Tissue, Open Approach (ICD-10-PCS; 2018-10-30)
PROC: 06BQ4ZZ Excision of Left Saphenous Vein, Percutaneous Endoscopic Approach (ICD-10-PCS; 2018-10-30)
PROC: B24BZZ4 Ultrasonography of Heart with Aorta, Transesophageal (ICD-10-PCS; 2018-10-30)
PROC: 02100Z9 Bypass Coronary Artery, One Artery from Left Internal Mammary, Open Approach (ICD-10-PCS; principal; 2018-10-30 07:30)
DX: I25.119 Atherosclerotic heart disease of native coronary artery with unspecified angina pectoris (principal); I26.99 Other pulmonary embolism without acute cor pulmonale; J96.01 Acute respiratory failure with hypoxia; D62 Acute posthemorrhagic anemia; J44.1 Chronic obstructive pulmonary disease with (acute) exacerbation; J98.11 Atelectasis; E66.9 Obesity, unspecified; Z68.31 Body mass index [BMI] 31.0-31.9, adult; F17.200 Nicotine dependence, unspecified, uncomplicated; M25.571 Pain in right ankle and joints of right foot; I12.9 Hypertensive chronic kidney disease with stage 1 through stage 4 chronic kidney disease, or unspecified chronic kidney disease; E11.22 Type 2 diabetes mellitus with diabetic chronic kidney disease; N18.9 Chronic kidney disease, unspecified; E11.21 Type 2 diabetes mellitus with diabetic nephropathy; E11.40 Type 2 diabetes mellitus with diabetic neuropathy, unspecified

== ENCOUNTER → 2018-10-27 07:57 | Outpatient (CLI) | payer MEDICARE ==
[2018-10-17 10:23] VITALS: BMI 27.5
== END | disposition home or self-care (01) ==
LOC: D.LAB 07:57
PROVIDERS: ATTEND Thoracic Surgery (Cardiothoracic Vascular Surgery)
DX: R94.4 Abnormal results of kidney function studies (principal)

== ENCOUNTER 2018-11-08 18:30 | Inpatient (IN) | payer MEDICARE ==
[~2018-11-08] VITALS: Ht 162.6 cm; Wt 73.4 kg
--- NOTE | 2018-11-08 17:50 | NUR ---
RECIEVED ON FLOOR FROM ICU TO ROOM 1116.ORIENTED TO ROOM AND SURROUNDINGS.CL IN REACH.O2 ON AT 3L/NC.
[~2018-11-08 18:30] MED LIST changes: +COLACE100 MG PO; +COREG 3.1253.125 MG PO; +ELIQUIS5 MG PO; +IPRAT-ALBUT 0.5-3 ML UPD; +MUCINEX DM ER1 EAC1 PO; +PERCOCET 5-3251 TAB PO; +PROVENTIL/2.5 MG/3 M INH; +PULMICORT0.5 MG/21 INH; +SENNA LAXATIVE8.6 MG PO
[2018-11-08 20:40] VITALS: BP 104/37
[2018-11-08 22:38] VITALS: BP 93/38; BMI 27.5
--- NOTE | 2018-11-09 01:09 | NUR ---
PT FROM ICU CABG WITH SUBSTERNAL INCISION 6 X 1 CM, ABDOMEN 2 X 1CM, 1 X 0.5 CM, 1 X 0.5 CM, LEFT LEG 6 X 1CM, 9 X 0.5CM, 1 X 0.5, 5 X 0.5, 4 X 1, 5 X 1, RT LEG 3 X 0.5 CM, TO BE KEPT CLEAN AND DRY COCCYX 3 X 1 CM OPEN AREA DONTE IN USE, BSC NEEDED, PLEASANT, SMILING, RECIEVED AT 1830, VIA WHEEL CHAIR, ACCOMPANIED BY HOSPITAL STAFF, JUSTICE, FLUIDS AND CALL LIGHT WITHIN REACH, FSBS AC/HS
--- NOTE | 2018-11-09 04:31 | NUR ---
PT IN BED LOWEST POSITION, EYES CLOSED, AROUSES EASILY TO VOICE, NO NEEDS NOTED, RESPIRATIONS EVEN AND UNLABORED, FLUIDS AND CALL LIGHT WITHIN REACH
[2018-11-09 05:47] LABS: APPEARANCE HAZY (CLEAR); BILIRUBIN NEGATIVE (NEGATIVE); COLOR YELLOW (YELLOW); GLUCOSE NEGATIVE (NEGATIVE); KETONE NEGATIVE (NEGATIVE); NITRITE POSITIVE (NEGATIVE); PROTEIN 2+ mg/dL (NEGATIVE); UROBILINOGEN NORMAL (NORMAL)
[2018-11-09 05:48] LABS: BACTERIA MANY /hpf (NONE SEEN); EPITHELIAL CELLS 0-5 /hpf (0-5)
[2018-11-09 08:00] VITALS: BP 102/40
[2018-11-09 09:01] LABS: BASOPHILS 0.1 % (0-2); EOSINOPHILS 1.1 % (0-7); HEMOGLOBIN 7.6 g/dL (12-16); IMMATURE GRANULOCYTES 0.5 % (0-5); LYMPHOCYTES 7.1 % (15-50); MCH 30.4 pg (26.0-34.0); MEAN PLATELET VOLUME 10.5 fL (7.4-10.4); MONOCYTES 7.4 % (2-11); NEUTROPHILS 83.8 % (40-80); RDW 14.5 % (11.5-14.5); WBC 8.3 10x3/uL (4.8-10.8)
[2018-11-09 09:13] LABS: CALCIUM 8.7 mg/dL (8.5-10.1); CARBON DIOXIDE 31.9 mmol/L (21.0-32.0); CREATININE - SERUM 1.5 mg/dL (0.6-1.3); POTASSIUM - SERUM 3.9 mmol/L (3.5-5.1)
[2018-11-09 09:16] LABS: PLATELET COUNT 238 10x3/uL (130-400)
[2018-11-09 11:09] VITALS: Ht 162.6 cm; Wt 73.4 kg
--- NOTE | 2018-11-09 11:26 | NUR ---
THE PATIENT WAS SITTING IN BED AND WATCHING TELEVISION WHEN STAFF ENTERED HER ROOM. BED IS IN THE LOW POSITION WITH SIDERAILS X2 AND CALL LIGHT WITHIN REACH. THE PATIENT WAS EDUCATED ON AND DEMONSTRATED UNDERSTANDING OF USE OF A CALL LIGHT. THE PATIENT APPEARS COMFORTABLE WITH NO QUESTIONS OR COCNERNS AT THIS TIME.
--- NOTE | 2018-11-09 19:35 | NUR ---
GREETED PATIENT AND INTRODUCED MYSELF. PATIENT IS LAYING IN BED AND DENIES ANY NEEDS AT THIS TIME. I ENCOURAGED PATIENT TO DRINK MORE FLUIDS DUE TO THE FACT THAT HER URINE IS DARK AND CONCENTRATED. PATIENT UNDERSTOOD TEACHING
[2018-11-09 22:49] VITALS: BP 112/80
[2018-11-10 06:55] LABS: BASOPHILS 0.1 % (0-2); EOSINOPHILS 1.3 % (0-7); HEMATOCRIT 23.8 % (36.0-48.0); IMMATURE GRANULOCYTES 0.4 % (0-5); LYMPHOCYTES 9.7 % (15-50); MCH 29.2 pg (26.0-34.0); MCHC 31.5 g/dL (31.0-37.0); MCV 92.6 fL (80.0-100.0); MEAN PLATELET VOLUME 10.6 fL (7.4-10.4); MONOCYTES 7.6 % (2-11); NEUTROPHILS 80.9 % (40-80); RBC 2.57 10x6/uL (4.00-5.40); RDW 14.6 % (11.5-14.5); WBC 7.8 10x3/uL (4.8-10.8)
[2018-11-10 07:11] LABS: CALCIUM 8.8 mg/dL (8.5-10.1); CARBON DIOXIDE 29.9 mmol/L (21.0-32.0); CREATININE - SERUM 1.7 mg/dL (0.6-1.3); POTASSIUM - SERUM 3.9 mmol/L (3.5-5.1)
[2018-11-10 07:18] LABS: HEMOGLOBIN 7.5 g/dL (12-16); PLATELET COUNT 310 10x3/uL (130-400)
[2018-11-10 08:31] VITALS: BP 113/35
--- NOTE | 2018-11-10 10:34 | NUR ---
PATIENT IS ALERT/ORIENT. CALL LIGHT WITHIN REACH. VOICES NO NEEDS AT THIS TIME. WILL CONTINUE WITH PLAN OF CARE
--- NOTE | 2018-11-10 10:35 | NUR ---
PATIENT IN REHAB ROOM. WORKING WITH PHYSICAL THERAPIST. DENIES ANY PAIN/DISC AT THIS TIME.
--- NOTE | 2018-11-10 15:00 | NUR ---
FIRST UNIT OF PRBC STARTED.
[2018-11-10 17:30] VITALS: BP 112/52
--- NOTE | 2018-11-10 17:37 | NUR ---
SECOND UNIT OF PRBC STARTED. PATIENT TOLERATED FIST UNIT.
[2018-11-10 17:45] VITALS: BP 100/46
[2018-11-10 19:00] VITALS: BP 107/48
--- NOTE | 2018-11-10 19:00 | NUR ---
RECEIVED REPORT. SITTING UP IN BED ALERT AND ORIENTED X4. 2 UNIT PRBC 125ML/HR RIGHT WRIST 22G. NO SIGNS OF DISTRESS NOTED. CONTINUES ON 3L VIA NC. VS STABLE SHIFT ASSESSMENT COMPLETE. JUSTICE PATENT AND FREE OF KINKS WITH BLOOD TINGED URINE. CALL LIGHT WITHIN REACH, FALL PRECAUTIONS IN PLACE. WILL CONTINUE TO MONITOR
[2018-11-10 21:30] VITALS: BP 107/48
--- NOTE | 2018-11-11 00:16 | NUR ---
QUIET HOURS. LYING IN BED EYES CLOSED RESTING. RR EVEN AND UNLABORED. CONTINUES ON 2.5L VIA NC. WILL CONTINUE TO MONITOR
--- NOTE | 2018-11-11 02:45 | NUR ---
LYING IN BED EYES CLOSED RESTING. NO SIGNS OF DISTRESS NOTED. WILL CONTINUE TO MONITOR
--- NOTE | 2018-11-11 06:24 | NUR ---
UNABLE TO WEIGH PATIENT ON STANDING SCALE, PATIENT UNABLE TO STAND ON ONE FOOT, TRIED BEDSCALE BUT IT NEEDS TO BE ZEROED OUT.
[2018-11-11 06:39] LABS: BASOPHILS 0.2 % (0-2); EOSINOPHILS 1.4 % (0-7); IMMATURE GRANULOCYTES 0.5 % (0-5); LYMPHOCYTES 9.4 % (15-50); MCH 30.4 pg (26.0-34.0); MCHC 32.9 g/dL (31.0-37.0); MCV 92.3 fL (80.0-100.0); MEAN PLATELET VOLUME 10.5 fL (7.4-10.4); MONOCYTES 6.7 % (2-11); NEUTROPHILS 81.8 % (40-80); PLATELET COUNT 341 10x3/uL (130-400); RDW 14.5 % (11.5-14.5); WBC 8.4 10x3/uL (4.8-10.8)
[2018-11-11 06:40] LABS: HEMATOCRIT 30.1 % (36.0-48.0); HEMOGLOBIN 9.9 g/dL (12-16); RBC 3.26 10x6/uL (4.00-5.40)
[2018-11-11 06:49] LABS: CALCIUM 8.9 mg/dL (8.5-10.1); CARBON DIOXIDE 32.2 mmol/L (21.0-32.0); CREATININE - SERUM 1.5 mg/dL (0.6-1.3); POTASSIUM - SERUM 4.2 mmol/L (3.5-5.1)
--- NOTE | 2018-11-11 07:56 | NUR ---
PT SITTING UP IN BED, EATING BREAKFAST, DENIES NEEDS. WCTM.
--- NOTE | 2018-11-11 13:57 | NUR ---
PT IN THERAPY GYM. REQ ADN REC'D PRN PAIN MEDICATION. WCFINA.
--- NOTE | 2018-11-11 17:30 | NUR ---
PT EATING DINNER, DENIES NEEDS. WCTM.
[2018-11-11 19:45] VITALS: BP 112/57
--- NOTE | 2018-11-11 20:15 | NUR ---
PT IS RESTING IN BED WITH EYES OPEN. ALERT AND ORIENTED X 3. VSS. CABG INCISIONS ARE ALL HEALING WELL. O2 IS ON @ 3LPM PER NC. NO SOB NOTED. JUSTICE CATH IS PATENT AND DRAINING TO A GRAVITY BAG. RIGHT LEG NOTED WITH 3+ EDEMA. THERAPY TAPE NOTED ON LEG. SR'S ARE UP X 2 IN BED. CALL LIGHT AND BEDSIDE TABLE ARE WITHIN EASY REACH.
--- NOTE | 2018-11-11 22:29 | NUR ---
PT IS RESTING QUIETLY IN BED WITH EYES CLOSED. RESPS ARE EVEN AND UNLABORED. NO ACUTE DISTRESS NOTED.
--- NOTE | 2018-11-12 00:01 | NUR ---
PT IS RESTING QUIETLY IN BED WITH EYES CLOSED. RESPS ARE EVEN AND UNLABORED. NO ACUTE DISTRESS NOTED.
--- NOTE | 2018-11-12 03:59 | NUR ---
I have reviewed this patient and I concur with the Shift Assessment completed by the Licensed Practical Nurse today this shift.
--- NOTE | 2018-11-12 09:10 | NUR ---
PT AM MEDS ADMINSITERED. PT DENIES NEEDS. WCTM.
[2018-11-12 11:55] VITALS: BP 106/42
--- NOTE | 2018-11-12 18:00 | NUR ---
PT EATING DINNER, DENIES NEEDS. WCTM.
--- NOTE | 2018-11-12 19:21 | NUR ---
PT RESTING IN BED WATCHING TV. NO NEEDS VOICED.
[2018-11-12 23:42] VITALS: BP 122/61
--- NOTE | 2018-11-12 23:53 | NUR ---
PT RESTING IN BED WITH EYES OPEN. SHE STATES SHE IS NOT GOING TO SLEEP UNTIL AFTER HER NEXT PAIN MEDICINE IS AVAILABLE.
--- NOTE | 2018-11-13 00:12 | NUR ---
I have reviewed this patient and I concur with the Shift Assessment completed by the Licensed Practical Nurse today this shift.
--- NOTE | 2018-11-13 04:50 | NUR ---
RESTING IN BED WITH EYES CLOSED.
[2018-11-13 08:00] VITALS: BP 109/47
[2018-11-13 09:44] LABS: BASOPHILS 0.2 % (0-2); EOSINOPHILS 0.7 % (0-7); HEMATOCRIT 28.9 % (36.0-48.0); HEMOGLOBIN 9.5 g/dL (12-16); IMMATURE GRANULOCYTES 0.3 % (0-5); LYMPHOCYTES 6.2 % (15-50); MCH 30.4 pg (26.0-34.0); MCHC 32.9 g/dL (31.0-37.0); MCV 92.6 fL (80.0-100.0); MEAN PLATELET VOLUME 10.1 fL (7.4-10.4); MONOCYTES 6.1 % (2-11); NEUTROPHILS 86.5 % (40-80); PLATELET COUNT 355 10x3/uL (130-400); RBC 3.12 10x6/uL (4.00-5.40); RDW 14.3 % (11.5-14.5); WBC 10.3 10x3/uL (4.8-10.8)
--- NOTE | 2018-11-13 09:45 | NUR ---
PT AM MEDS ADMINISTERED. PT DENIES NEEDS. WCTM.
[2018-11-13 10:00] LABS: ANION GAP 11.1 mmol/L (8-16); CALCIUM 8.9 mg/dL (8.5-10.1); CARBON DIOXIDE 32.5 mmol/L (21.0-32.0); CREATININE - SERUM 1.5 mg/dL (0.6-1.3); POTASSIUM - SERUM 3.6 mmol/L (3.5-5.1)
--- NOTE | 2018-11-13 14:03 | NUR ---
PT PATICIPATING IN THERAPY. PT BLE ARE AT 4+EDEMA. PEDAL PULSES NOT PALPABLE DUE TO SWELLING. DOPPLER OBTAINED AND X'S MARKED WHERE PEDAL PULSES HEARD. WCTM.
--- NOTE | 2018-11-13 14:22 | NUR ---
Nutrition follow-up: Diet: ADA consistent CHO PO intake 83% average of last 9 meals Labs reviewed Wt: 174# No BM charted since admit PO intake good at this time RDN following.
--- NOTE | 2018-11-13 19:12 | NUR ---
GREETED PATIENT AND INTRODUCED MYSELF. PATIENT IS LAYING IN BED IN SUPINE POSITION. CURRENTLY TAKING BREATHING TREATMENT. DENIES ANY NEEDS AT THIS TIME. CALL LIGHT IN REACH.
[2018-11-13 20:05] VITALS: BP 122/50
--- NOTE | 2018-11-14 00:19 | NUR ---
PATIENT RESTING WITH EYES CLOSED. RESPIRATIONS EVEN. NO S/S OF DISTRESS. O2 AT 3L IN USE VIA NC. SR UP X 2. BED IN LOWEST POSITION. CALL LIGHT IN REACH.
[2018-11-14 08:00] VITALS: BP 111/45
--- NOTE | 2018-11-14 14:05 | NUR ---
I have reviewed this patient and I concur with the Shift Assessment completed by the Licensed Practical Nurse today this shift.
--- NOTE | 2018-11-14 16:37 | NUR ---
PT RESTING IN BED WITH EYES OPEN CALL LIGHT IN REACH WILL MONITER
--- NOTE | 2018-11-14 18:07 | NUR ---
PT RESTING IN BED WITH EYES OPEN CALL LIGHT IN REACH NO PROBLEMS WILL MONITER
--- NOTE | 2018-11-14 19:30 | NUR ---
PT SITTING UP IN BED WATCHING TV. CL IN REACH. DENIES NEEDS AT THIS TIME. BED IN LOW SIDE RAILS X2. JUSTICE INTACT URINE DARK JOHANNA. INCISION TO CHEST INTACT AND HEALING WELL. RESP EVEN AND UNLABORED. O2 ON 3L VIA NC. A/O X4. WCTM
[2018-11-14 20:00] VITALS: BP 124/60
--- NOTE | 2018-11-15 01:07 | NUR ---
I have reviewed this patient and I concur with the Shift Assessment completed by the Licensed Practical Nurse today this shift.
--- NOTE | 2018-11-15 05:05 | NUR ---
RESTING QUIETLY. CL IN REACH. NO DISTRESS NOTED. RESP EVEN AND UNLABORED. WCTM
[2018-11-15 07:36] LABS: BASOPHILS 0.1 % (0-2); EOSINOPHILS 0.3 % (0-7); HEMATOCRIT 27.3 % (36.0-48.0); HEMOGLOBIN 8.8 g/dL (12-16); IMMATURE GRANULOCYTES 0.3 % (0-5); LYMPHOCYTES 5.2 % (15-50); MCH 29.5 pg (26.0-34.0); MCHC 32.2 g/dL (31.0-37.0); MCV 91.6 fL (80.0-100.0); MEAN PLATELET VOLUME 10.1 fL (7.4-10.4); MONOCYTES 7.2 % (2-11); NEUTROPHILS 86.9 % (40-80); PLATELET COUNT 335 10x3/uL (130-400); RBC 2.98 10x6/uL (4.00-5.40); RDW 14.3 % (11.5-14.5); WBC 9.3 10x3/uL (4.8-10.8)
[2018-11-15 07:46] LABS: ANION GAP 11.2 mmol/L (8-16); CALCIUM 8.8 mg/dL (8.5-10.1); CREATININE - SERUM 1.4 mg/dL (0.6-1.3); POTASSIUM - SERUM 3.2 mmol/L (3.5-5.1)
[2018-11-15 07:59] VITALS: BP 112/51
--- NOTE | 2018-11-15 15:07 | NUR ---
CARE TEAM MEETING: PATIENT IS HAVING DIFFICULTY PARTICIPATING WITH THERAPY SECONDARY TO PAIN. DR. SHETH SPOKE WITH AND TEAM REGARDING MED ADJUSTMENT AND GETTING THE PATIENT UP AND MOVING. TENATIVE DISCHARGE DATE IS 11/24/18. HUSBANDS QUESTIONS AND CONCERNS WERE ADDRESSED. WILL CONTINUE TO FOLLOW WITH PATIENT. FRANCISCA CHURCHILL, DIRECTOR TELEVISION NEWS [facility]
--- NOTE | 2018-11-15 15:27 | NUR ---
THE PATIENT WAS LYING IN BED AND WATCHING TELEVISION WHEN STAFF ENTERED HER ROOM. BED IS IN THE LO WPOSITION WITH SIDERAILS X2 AND CALL LIGHT WITHIN REACH. THE PATIENT WAS EDUCATED ON THE USE OF A CALL LIGHT AND DEMONSTRATES UNDERSTANDING VIA TEACHBACK METHOD. THE PATIENT APEPARS COMFORTABLE WITH NO QUESTIONS OR COCNERNS AT THIS TIME.
--- NOTE | 2018-11-15 19:05 | NUR ---
BEDSIDE REPORT COMPLETE. SITTING UP IN BED ALERT AND ORIENTED X4. DENIES ANY NEEDS OR PAIN. NO SIGNS OF DISTRESS NOTED. CALL LIGHT WITHIN REACH, FALL PRECAUTIONS IN PLACE. WILL CONTINUE TO MONITOR
[2018-11-15 23:23] VITALS: BP 113/52
--- NOTE | 2018-11-16 00:48 | NUR ---
LYING IN BED EYES CLOSED RESTING. RR EVEN AND UNLABORED. WILL CONTINUE TO MONITOR
--- NOTE | 2018-11-16 02:44 | NUR ---
LYING IN BED EYES CLOSED RESTING. PROPPED RIGHT SIDE UP WITH PILLOWS. NO SIGNS OF DISTRESS NOTED. CONTINUES ON 4L VIA NC. WILL CONTINUE TO MONITOR
--- NOTE | 2018-11-16 06:17 | NUR ---
JUSTICE CATH REMOVED. REMOVED 8ML SALINE FROM BULB, JUSTICE CATH TIP INTACT. PT TOLERATED WELL. PROVIDED PERICARE AND BRIEF ON PER PT REQUEST.
[2018-11-16 07:26] LABS: ANION GAP 10.5 mmol/L (8-16); CALCIUM 8.8 mg/dL (8.5-10.1); CARBON DIOXIDE 33.6 mmol/L (21.0-32.0); CREATININE - SERUM 1.3 mg/dL (0.6-1.3); POTASSIUM - SERUM 3.1 mmol/L (3.5-5.1)
[2018-11-16 08:00] VITALS: BP 116/48
--- NOTE | 2018-11-16 08:00 | NUR ---
RESTING QUIETLY IN BED. SIDE RAILS UP X2. HEAD OF BED ELEVATED APPX 45 DEGREES. 3+ EDEMA NOTED TO BLE. CALL LIGHT IN REACH
--- NOTE | 2018-11-16 10:00 | NUR ---
WAS CONSTIPATED. NURSE ROMOVED LARGE AMT OF HARD STOOL. CHEST INCISION INTACT WELL INCISIONS TO LEGS. ON OXYGEN 4L NC.
--- NOTE | 2018-11-16 14:15 | NUR ---
SITTING UP IN WC IN ROOM, EYES CLOSED. NO S/S DISTRESS NOTED. CALL LIGHT IN REACH
--- NOTE | 2018-11-16 19:00 | NUR ---
BEDSIDE SHIFT REPORT COMPLETE. SITTING UP IN W/C IN ROOM ALERT AND ORIENTED X3. DENIES ANY NEEDS. REQUEST PAIN MEDICATION FOR LEG AND BACK THROBBING PAIN. WILL ADMININSTER ACCORDINGLY. CONTINUES ON 4L VIA NC. RIGHT WRIST IV FLUSHES WITHOUT DIFFICULTY. NO SIGNS OF INFECTION OR INFILTRATION. WILL CONTINUE TO MONITOR
[2018-11-16 20:00] VITALS: BP 117/46
--- NOTE | 2018-11-17 02:25 | NUR ---
QUIET HOURS. LYING IN BED SUPINE EYES CLOSED RESTING. RR EVEN AND UNLABORED. CONTINUES ON 4L VIA NC. WILL CONTINUE TO MONITOR
[2018-11-17 06:55] LABS: BASOPHILS 0.3 % (0-2); EOSINOPHILS 0.8 % (0-7); HEMATOCRIT 30.4 % (36.0-48.0); IMMATURE GRANULOCYTES 0.3 % (0-5); LYMPHOCYTES 9.6 % (15-50); MCH 29.9 pg (26.0-34.0); MCHC 32.9 g/dL (31.0-37.0); MCV 90.7 fL (80.0-100.0); MEAN PLATELET VOLUME 10.4 fL (7.4-10.4); MONOCYTES 9.2 % (2-11); NEUTROPHILS 79.8 % (40-80); PLATELET COUNT 336 10x3/uL (130-400); RBC 3.35 10x6/uL (4.00-5.40); RDW 14.5 % (11.5-14.5); WBC 7.4 10x3/uL (4.8-10.8)
[2018-11-17 07:18] LABS: ANION GAP 10.2 mmol/L (8-16); CALCIUM 8.7 mg/dL (8.5-10.1); CARBON DIOXIDE 34.4 mmol/L (21.0-32.0); CREATININE - SERUM 1.3 mg/dL (0.6-1.3)
[2018-11-17 07:20] LABS: POTASSIUM - SERUM 2.6 mmol/L (3.5-5.1)
[2018-11-17 08:17] VITALS: BP 113/39
--- NOTE | 2018-11-17 14:39 | RHP ---
PATIENT: KASSANDRA REYNOLDS MEDICAL RECORD: [id number] ACCOUNT: [id number] LOCATION:[facility]1116 : 51 ADMISSION DATE: 11/08/18 REHABILITATION HISTORY AND PHYSICAL EXAMINATION POST ADMISSION PHYSICIAN EXAMINATION POST ADMISSION PHYSICAL EXAMINATION AND HISTORY AND PHYSICAL DATE OF ADMISSION: 11/08/2018 ADMITTING DIAGNOSIS: Critical illness myopathy. HISTORY OF PRESENT ILLNESS: The patient admitted to the inpatient rehabilitation for critical illness myopathy. She is a 63-year-old female patient, who was admitted to the [facility] for coronary artery bypass grafting on October 30. She did have some postop complications, acute respiratory failure, and pleural effusion, requiring supplemental O2 and updrafts. Pulmonary has been consulted and followed throughout her stay. She was also followed by nephrology for acute kidney injury. She also has had acute left lower extremity pain affecting her ability to ambulate. She has had orthopedic consult and neurosurgery for radicular pain. She has a history of diabetes that has been diet controlled, hypertension, history of electrolyte abnormalities, and she is a tobacco smoker. She is currently on telemetry, supplemental O2, updrafts. Acute blood loss anemia requiring blood transfusion. Has had a PE and is on anticoagulant therapy. Deconditioning, debility, proximal muscle weakness, impaired mobility, gait disturbance, high fall risk, and self-care deficits. There are all barriers to her discharge home. Lives at home with a roommate. She was moderately independent with her mobility and independent to moderately independent with the use of shower bench for ADLs. Currently set up for mod assist for ADLs, mod assist to total assist for mobility. She plans to return home with her roommate at close to the level as her prior level of function as possible and get home health set up. Comorbidities include acute hypoxic respiratory failure, COPD, atelectasis, right lower extremity swelling and pain, obstructive sleep apnea, acute cough, anemia, diabetes, nutrition and hypoalbuminemia, chronic kidney disease, status post CABG, chronic coronary artery disease, chronic hypertension, lumbar radicular pain, acute blood loss anemia. PAST MEDICAL HISTORY: Significant for diabetes, hypertension, coronary artery disease, COPD, depression, and anxiety. PAST SURGICAL HISTORY: Includes hysterectomy, and she has had surgery on her arm and coronary artery bypass grafting. ALLERGIES: No known drug allergies. CURRENT MEDICATIONS: Include aspirin 81 mg daily, carvedilol 3.125 mg b.i.d. with meals, budesonide 0.5 mg b.i.d., DuoNeb updrafts. She is on Humulin intermediate resistant sliding scale, Zoloft 100 mg b.i.d., Senna 2 tabs at bedtime, Mucinex 1 tab b.i.d., Colace 100 mg b.i.d., Eliquis 5 mg b.i.d., Percocet 5/325 one tab every 3 hours p.r.n., and Ventolin updrafts. HABITS: Does have history of tobacco use. FAMILY HISTORY: Noncontributory. HISTORY AND PHYSICAL [id number] KASSANDRA REYNOLDS SOCIAL HISTORY: The patient hopes to return back home and get back to her prior level of functioning. REVIEW OF SYSTEMS: GENERAL: Does complain of weakness and fatigue. HEENT: Denies cold, cough, or congestion. CARDIOVASCULAR: Denies chest pain. PHYSICAL EXAMINATION: VITAL SIGNS: Stable, afebrile. GENERAL: A well-developed female, in no acute distress upon exam. HEENT: Normocephalic and atraumatic. Mucosa moist. NECK: Supple. No lymphadenopathy. LUNGS: Clear at this time with no wheezing, rhonchi, or rales. HEART: Regular rate and rhythm. No murmurs or gallops. ABDOMEN: Soft, benign, nontender, nondistended. Positive bowel sounds times 4. EXTREMITIES: Consistent with venous removal. NEUROLOGIC: She is intact except for weakness. LABORATORY DATA: Her white count is 8.3, H&H of 7.6 and 23.0, and platelet count is 238. Sodium 137, potassium 3.9, BUN and creatinine of 27 and 1.5, and blood sugar is noted to be 281. Her UA was positive for nitrites and also leukocyte esterase. ASSESSMENT: A 63-year-old female patient admitted to the rehab with a working diagnosis of critical illness myopathy. The patient has potential to make improvement. We will institute the following multidisciplinary therapies including, but not limited to physical, occupational, respiratory, speech, nutritional services, prosthetics and orthotics. Given her complex medical condition and risks for more complications, rehabilitation services cannot be provided at a low level of care such as a senior living facility. PLAN: 1. Admit to [facility] for an inpatient therapy to include the following disciplines: A. Physical therapy to improve gait, all transfer skills and bed mobility to a modified independent level. B. Occupational therapy to modified independent level. C. Case management to assist with discharge planning and placement options. D. Nutrition to assist with nutritional needs. E. Rehabilitation nursing to assist in monitoring the patient's underlying medical condition and to assist with any type of bowel or bladder management. 2. The patient's current medications and medical care will be continued. 3. The patient will be placed on standard fall precautions. 4. I am going to go ahead and treat her UTI. We will also consider giving her some blood, and I will follow up again in the a.m. TRANSINT:[id number] Voice Confirmation ID: [id number] DOCUMENT ID: [id number] ALICE notes whether there has been none or any medical/functional change since admission: - No change since preadmission screen. HISTORY AND PHYSICAL [id number] KASSANDRA REYNOLDS attests patient continues to be appropriate for IRF: - Continues to be appropriate. CHELSEA SHETH MD at 1439 CC: [id number] DICTATION DATE: 11/09/18 0933 INDUSTRIAL ENGINEERING MANAGER: 11/09/18 0953 ADM IN [facility] [address] [place] [address]
[2018-11-17 19:20] VITALS: BP 110/46
--- NOTE | 2018-11-17 20:00 | NUR ---
PT IS RESTING IN BED WITH EYES OPEN. ALERT AND ORIENTED X 3. NO NEEDS VOICED. VSS. O2 IS ON @ 4LPM PER NC. NO SOB NOTED. SR'S ARE UP X 2 IN BED. CALL LIGHT AND BEDSIDE TABLE ARE WITHIN EASY REACH.
--- NOTE | 2018-11-17 22:03 | NUR ---
PT IS RESTING QUIETLY IN BED WITH EYES CLOSED. RESPS ARE EVEN AND UNLABORED. NO ACUTE DISTRESS NOTED.
--- NOTE | 2018-11-18 00:01 | NUR ---
RESTING IN BED WITH EYES CLOSED.
--- NOTE | 2018-11-18 04:00 | NUR ---
PT RESTING IN BED WITH EYES CLOSED. NO ACUTE DISTRESS NOTED.
[2018-11-18 07:13] LABS: ANION GAP 8.5 mmol/L (8-16); CALCIUM 8.5 mg/dL (8.5-10.1); CARBON DIOXIDE 34.7 mmol/L (21.0-32.0); CREATININE - SERUM 1.2 mg/dL (0.6-1.3)
[2018-11-18 07:14] LABS: POTASSIUM - SERUM 3.2 mmol/L (3.5-5.1)
[2018-11-18 08:00] VITALS: BP 113/47
--- NOTE | 2018-11-18 08:00 | NUR ---
SHIFT ASSMT COMPLETED.UP OOB FOR BREAKFAST.EDEMA TO LOWER EXT BILAT.FRIEND AT BEDSIDE VERY UP SET STATES ABOUT BLAMING HER.I STATED NO ONE WAS TRYING TO BLAME ANYONE;ITS GOOD TO BE UP OOB TO EAT EXPLAINED THAT ALL MEALS SHOULD BE EATEN OOB BECAUSE WE ARE TRYING TO GET BACKTO HOME AND TO BE UP WOULD HELP SWELLING.BOYFRIEND VERY UPSET STATING NOTING IS BEING DONE ABOUT THIS SWELLING.I STATED BACK THAT WHEN COMES IN I WLL LET HIM KNOW THEY WANT TO TALK TO HIM FOR QUESTIONS.
--- NOTE | 2018-11-18 10:00 | NUR ---
PT AND BOYFRIEND SPOKE WITH .REMAINS OOB.CL IN REACH.
--- NOTE | 2018-11-18 12:00 | NUR ---
EATING LUNCH.DENIES NEEDS.
[2018-11-18 20:00] VITALS: BP 118/51
--- NOTE | 2018-11-18 20:16 | NUR ---
PT ASSISTED TO THE BATHROOM WITH MOD ASSIST WITH ALL TASKS. PT OPTED TO SIT IN RECLINER AFTERWARDS. FEET ELEVATED. VSS. CALL LIGHT AND BEDSIDE TABLE ARE WITHIN EASY REACH.
--- NOTE | 2018-11-18 22:25 | NUR ---
PT RESTING IN RECLINER AT BEDSIDE WITH EYES CLOSED. NO ACUTE DISTRESS NOTED.
--- NOTE | 2018-11-19 00:01 | NUR ---
PT INC. OF A LARGE AMOUNT OF URINE. MAXINE CARE AND PAD CHANGE DONE. NO FURTHER NEEDS VOICED.
--- NOTE | 2018-11-19 01:25 | NUR ---
RESTING IN BED WITH RESPIRAITONS UNLABORED. NO DISTRESS NOTED. CALL LIGHT IN REACH.
--- NOTE | 2018-11-19 06:27 | NUR ---
PT RESTING IN RECLINER IN HER ROOM. NO NEEDS VOICED.
[2018-11-19 08:00] VITALS: BP 116/46
--- NOTE | 2018-11-19 08:00 | NUR ---
SHIFT ASSMT COMPLETED.
--- NOTE | 2018-11-19 16:00 | NUR ---
RESTING IN WC.REMAINS UP.
--- NOTE | 2018-11-19 19:21 | NUR ---
PT IS RESTING IN BED WITH EYES OPEN. ALERT AND ORIENTED X 3. DENIES ACUTE PAIN OR DISCOMFORT AT THIS TIME. NO NEEDS VOICED. CABG INCISIONS ARE ALL HEALING WELL. PT ENCOURAGED TO KEEP HER FEET ELEVATED AT TALL TIMES TO PREVENT EDEMA. SR'S ARE UP X 2 IN BED. CALL LIGHT AND BEDSIDE TABLE ARE WITHIN EASY REACH.
[2018-11-19 20:00] VITALS: BP 128/47
--- NOTE | 2018-11-19 21:30 | NUR ---
PT IS RESTING IN BED WATCHING TV. NO ACUTE DISTRESS NOTED.
--- NOTE | 2018-11-19 23:49 | NUR ---
PT RESTING IN BED WITH EYES CLOSED.
--- NOTE | 2018-11-20 01:53 | NUR ---
RESTING IN BED WITH RESPIRATIONS UNLABORED. NO DISTRESS NOTED. CALL LIGHT IN REACH.
--- NOTE | 2018-11-20 02:30 | NUR ---
PT ASSISTED TO THE BATHROOM WITH MOD ASSIST. SHE REFUSED TO RETURN TO BED AFTERWARDS, SAYING SHE WANTED TO SIT IN HER WC AND WATCH TV.
--- NOTE | 2018-11-20 05:02 | NUR ---
PT ASSISTED TO THE BATHROOM WITH MOD ASSIST. CONTINUES TO SIT IN WC IN HER ROOM AFTERWARDS, SAYING IT WAS VERY COMFORTABLE.
[2018-11-20 08:00] VITALS: BP 103/45
--- NOTE | 2018-11-20 08:15 | NUR ---
PT UP IN WHEELCHAIR AT BEDSIDE EATING BREAKFAST CALL LIGHT IN REACH WILL MONITER
--- NOTE | 2018-11-20 15:24 | NUR ---
Nutrition follow-up: Diet: ADA consistent CHO PO intake ~45.8% average of last 6 meals Pt eating 100% of some snacks Labs reviewed; replacing K Wt: 168# -> down 5# from admit wt; however, pt is on Lasix RDN following.
[2018-11-20 16:57] LABS: ANION GAP 9.3 mmol/L (8-16); CALCIUM 8.5 mg/dL (8.5-10.1); CARBON DIOXIDE 35.4 mmol/L (21.0-32.0); CREATININE - SERUM 1.3 mg/dL (0.6-1.3); POTASSIUM - SERUM 3.7 mmol/L (3.5-5.1)
[2018-11-20 17:04] LABS: HEMATOCRIT 31.7 % (36.0-48.0); HEMOGLOBIN 10.2 g/dL (12-16); LYMPHOCYTES 11.6 % (15-50); MCH 29.8 pg (26.0-34.0); MCHC 32.2 g/dL (31.0-37.0); MCV 92.7 fL (80.0-100.0); MEAN PLATELET VOLUME 10.6 fL (7.4-10.4); NEUTROPHILS 83.4 % (40-80); PLATELET COUNT 291 10x3/uL (130-400); RBC 3.42 10x6/uL (4.00-5.40); RDW 13.7 % (11.5-14.5); WBC 6.5 10x3/uL (4.8-10.8)
[2018-11-20 23:12] VITALS: BP 124/51
--- NOTE | 2018-11-20 23:54 | NUR ---
ASSITED PT TO BATHROOM.
--- NOTE | 2018-11-21 01:45 | NUR ---
REST QUIETLY IN BED. SIDE RAIL UP BED LOW.
--- NOTE | 2018-11-21 03:14 | NUR ---
I have reviewed this patient and I concur with the Shift Assessment completed by the Licensed Practical Nurse today this shift.
--- NOTE | 2018-11-21 04:36 | NUR ---
REST IN BED. RESP EVEN AND REGULAR, NO S/S OF DISTRESS.
[2018-11-21 07:49] VITALS: BP 119/49
--- NOTE | 2018-11-21 08:15 | NUR ---
PT RESTING IN BED WITH EYES OPEN CALL LIGHT IN REACH WILL MONITER
--- NOTE | 2018-11-21 19:34 | NUR ---
PT RESTING IN BED WITH EYES OPEN CALL LIGHT IN REACH WILL MONITER
--- NOTE | 2018-11-21 19:35 | NUR ---
PT SITTING UP IN WHEELCHAIR. CL IN REACH. DENEIS NEEDS OR PAIN AT THIS TIME. A/O X4. RESP EVEN AND UNLABORED. LUNGS DIMINISHED. BOWEL ACTIVE X4. LEGS 3+ EDEMA NOTED. WILL CONTINUE TO MONITOR.
[2018-11-21 20:47] VITALS: BP 121/41
--- NOTE | 2018-11-21 22:00 | NUR ---
ASSISTED TO THE BED. CL IN REACH. LEGS ELEVATED. BED IN LOW SIDE RAILS X2. WILL CONTINUE TO MONITOR.
--- NOTE | 2018-11-22 00:58 | NUR ---
QUICK SKETCH ARTIST ASSISTED WITH SHOWER. BACK IN BED. LINEN CHANGED. CHG BATH GIVEN. PT DENIES FURTHER NEEDS. CL IN REACH. RESP EVEN AND UNLABORED. O2 ON 2L VIA NC. WCTM
--- NOTE | 2018-11-22 06:12 | NUR ---
I have reviewed this patient and I concur with the Shift Assessment completed by the Licensed Practical Nurse today this shift.
[2018-11-22 07:49] VITALS: BP 112/38
--- NOTE | 2018-11-22 08:10 | NUR ---
I have reviewed this patient and I concur with the Shift Assessment completed by the Licensed Practical Nurse today this shift.
--- NOTE | 2018-11-22 08:13 | NUR ---
PATIENT IS ALERT/ORIENT. SITTING UP IN WHEELCHAIR AT BEDSIDE TO EAT BREAKFAST. CALL LIGTH WITHIN REACH. VOICES NO NEEDS AT THIS TIME. WILL CONTINUE WITH PLAN OF CARE
--- NOTE | 2018-11-22 10:35 | NUR ---
PATIENT HELPED INTO BATHROOM AFTER BILATERAL LEGS ELEVATED ABOVE HEART FOR 30 MINUTES. PATIENT MOD ASST WITH TRANSFERS. INCONT OF URINE. WEARS BRIEFS.
--- NOTE | 2018-11-22 13:33 | NUR ---
PATIENT SITTING UP IN WHEELCHAIR AT BEDSIDE. VISITOR IN ROOM. CALL LIGHT WITHIN REACH
--- NOTE | 2018-11-22 14:30 | NUR ---
PATIENT IN BED WITH BILATERAL LEGS ELEVATED ABOVE HEART
--- NOTE | 2018-11-22 17:37 | NUR ---
PATIENT SITTING UP IN WHEELCHAIR AT BEDSIDE TO EAT SUPPER
--- NOTE | 2018-11-22 19:40 | NUR ---
PT SITTING UP IN BED LEGS ELEVATED ABOVE HEART. ELSA HOSE IN PLACE. CL IN REACH. DENIES NEEDS. WCTM
[2018-11-22 19:53] VITALS: BP 108/61
--- NOTE | 2018-11-22 21:11 | NUR ---
PT LYING IN BED. CL IN REACH. ELSA HOSE IN PLACE. LEGS WER ELEVATED FOR 20 MIN ABOVE HEART EARLIER FOR THIRD TIME TODAY. DENIES NEEDS AT THIS TIME. LUNGS DIMINISHED. BOWEL ACTIVE X4. MIN ASSIST TO BATHROOM. A/O X4. LEFT LEG PAIN NOTED PAIN PILL GIVEN PER JUN. WATLER CONTINUE TO MONITOR.
--- NOTE | 2018-11-23 01:33 | NUR ---
ASSISTED TO BATHROOM AND BACK TO BED PER COMPUTATIONAL THEORY SCIENTIST. NO DISTRESS NOTED. CALL LIGHT IN REACH.
--- NOTE | 2018-11-23 06:30 | NUR ---
ASSISTED TO AND FROM BATHROOM. CL IN REACH. PT SITTING UP IN WHEELCHAIR. WEIGHT WAS 171.4 STANDING SCALE USED. DENIES NEEDS AT THIS TIME WCTM
--- NOTE | 2018-11-23 07:45 | NUR ---
I have reviewed this patient and I concur with the Shift Assessment completed by the Licensed Practical Nurse today this shift.
--- NOTE | 2018-11-23 08:00 | NUR ---
PATIENT IS ALERT/ORIENT. SITTING UP IN WHEELCHAIR AT BEDSIDE TO EAT BREAKFAST. CALL LIGHT WITHIN REACH. VOICES NO NEDS AT THIS TIME. WILL CONTINUE WITH PLAN OF CARE
[2018-11-23 08:15] VITALS: BP 120/43
--- NOTE | 2018-11-23 09:51 | NUR ---
PATIENT IN REHAB ROOM. WORKING WITH OCCUPATIONAL THERAPIST. DENIES ANY PAIN/DISC AT THIS TIME.
--- NOTE | 2018-11-23 11:00 | NUR ---
PATIENT LYING IN BED. LEGS ABOVE HEART.
[2018-11-23 19:17] VITALS: BP 113/82
--- NOTE | 2018-11-23 19:17 | NUR ---
GREETED PATIENT AND INTRODUCED MYSELF. PATIENT IS SITTING IN WHEELCHAIR. O2 IN USE VIA NC AT 2L. RESPIRATIONS EVEN. NO S/S OF DISTRESS. DENIES ANY NEEDS AT THIS TIME. VITAL SIGNS OBTAINED. CALL LIGHT IN REACH.
--- NOTE | 2018-11-23 19:45 | NUR ---
ASSISTED PATIENT TO BATHROOM USING WHEELCHAIR. PATIENT BACK TO BED AND REPOSITIONED FOR COMFORT. CALL LIGHT IN REACH.
--- NOTE | 2018-11-23 21:23 | NUR ---
ASSITED PATIENT TO BATHROOM USING WHEELCHAIR. BACK TO BED AND REPOSITIONED FOR COMFORT. CALL LIGHT IN REACH.
--- NOTE | 2018-11-23 21:50 | NUR ---
ASSISTED PATIENT TO BATHROOM USING WHEELCHAIR. BACK TO BED AND REPOSITIONED FOR COMFORT. CALL LIGHT IN REACH.
--- NOTE | 2018-11-23 23:06 | NUR ---
ASSISTED PATIENT TO BATHROOM USING WHEELCHAIR. PATIENT BACK TO BED AND REPOSITIONED FOR COMFORT. CALL LIGHT IN REACH.
--- NOTE | 2018-11-24 00:14 | NUR ---
PATIENT SITTING IN BED WITH EYES OPEN WATCHING TV. DENIES ANY NEEDS AT THIS TIME. CALL LIGHT IN REACH.
--- NOTE | 2018-11-24 00:47 | NUR ---
ASSISTED PATIENT TO BATHROOM USING WHEELCHAIR. BACK TO BED AND REPOSITIONED FOR COMFORT. CALL LIGHT IN REACH.
--- NOTE | 2018-11-24 03:03 | NUR ---
ASSISTED PATIENT TO BATHROOM USING WHEELCHAIR. PATIENT AWAKE AND DECIDED TO SIT IN WHEELCHAIR INSTEAD OF GOING BACK TO BED. CALL LIGHT WITHIN REACH.
--- NOTE | 2018-11-24 05:31 | NUR ---
ASSISTED PATIENT TO BATHROOM USING WHEELCHAIR.
[2018-11-24 07:30] VITALS: BP 111/42
--- NOTE | 2018-11-24 09:14 | NUR ---
PATIENT DISCHARGING HOME WITH FAMILY TODAY. [facility] WILL PROVIDE THERAPY AT HOME. NO NEW DME NEEDED AT THIS TIME. DR. LLOYD 04/16/19 @ 9:30, DR. FIERRO 12/06/18 @ 2:00, [facility]. 12/06/18 @ 1:00 FOR XRAY AND LAB PRIOR TO DR. FIERRO APPOINTMENT. PATIENT CHOICE FORM AND IMFM FORMS SIGNED, COPY GIVEN TO PATIENT AND FILED IN CHART. DISCHARGE INSTRUCTIONS WITH [facility] [employer] FAXED TO HOME HEALTH AND REVIEWED WITH PATIENT.
--- NOTE | 2018-11-24 10:37 | NUR ---
LAYING IN BED RESTING QUIETLY. TOOK TEDS OFF FOR A BIT FOR COMFORT. HAS BLE ELEVATED. CALL LIGHT IN REACH
[2018-11-24] MEDS ORDERED: LASIX40 MG PO (13:22)
[2018-11-24] MEDS ORDERED: K-DUR20 MEQ PO (13:22)
[2018-11-24] MEDS ORDERED: oxyCODONE IR PO (13:42)
--- NOTE | 2018-11-24 13:42 | NUR ---
JUST GAVE PT PAIN MEDS AT HER REQUEST. WILL DC SOON WITH . CALL LIGHT IN REACH
== END 2018-11-24 14:00 | disposition home health service (06) | DRG 91 ==
LOC: D.REHAB 18:30 → D.SDCHOLD 11-11 01:24 → D.REHAB 11-11 01:25
PROVIDERS: ADMIT Emergency Medicine; ATTEND Emergency Medicine
DX: G72.81 Critical illness myopathy (principal); J96.01 Acute respiratory failure with hypoxia; J98.11 Atelectasis; D62 Acute posthemorrhagic anemia; J44.1 Chronic obstructive pulmonary disease with (acute) exacerbation; G47.33 Obstructive sleep apnea (adult) (pediatric); M54.16 Radiculopathy, lumbar region; I12.9 Hypertensive chronic kidney disease with stage 1 through stage 4 chronic kidney disease, or unspecified chronic kidney disease; N18.9 Chronic kidney disease, unspecified; E11.22 Type 2 diabetes mellitus with diabetic chronic kidney disease; R22.41 Localized swelling, mass and lump, right lower limb; I25.10 Atherosclerotic heart disease of native coronary artery without angina pectoris; E11.65 Type 2 diabetes mellitus with hyperglycemia; R20.2 Paresthesia of skin; S84.1 Injury of peroneal nerve at lower leg level

== ENCOUNTER → 2018-12-06 12:51 | Outpatient (CLI) | payer MEDICARE ==
[2018-11-09 11:09] VITALS: BMI 27.4
[~2018-12-06 12:51] MED LIST changes: +COLCRYS0.6 MG PO; +FIBERCON625 MG PO; +FLORAJEN3 CAPS460 MG PO; +HUMALOG 30100 UNITS/ SC; +K-DUR20 MEQ PO; +LASIX40 MG PO; +MERREM 1 GM/NS 11 G1 IV; +PROTONIX40 MG PO; +VIBRAMYCIN50 MG PO; +oxyCODONE IR PO
[2018-12-06 14:14] LABS: BASOPHILS 0.2 % (0-2); EOSINOPHILS 0.6 % (0-7); HEMATOCRIT 42.3 % (36.0-48.0); HEMOGLOBIN 14.7 g/dL (12-16); IMMATURE GRANULOCYTES 0.3 % (0-5); LYMPHOCYTES 8.6 % (15-50); MCH 30.5 pg (26.0-34.0); MCHC 34.8 g/dL (31.0-37.0); MCV 87.8 fL (80.0-100.0); MEAN PLATELET VOLUME 11.9 fL (7.4-10.4); MONOCYTES 4.8 % (2-11); NEUTROPHILS 85.5 % (40-80); RBC 4.82 10x6/uL (4.00-5.40); WBC 9.9 10x3/uL (4.8-10.8)
[2018-12-06 14:26] LABS: PLATELET COUNT 224 10x3/uL (130-400)
[2018-12-06 14:35] LABS: ANION GAP 12.4 mmol/L (8-16); CALCIUM 9.5 mg/dL (8.5-10.1); CARBON DIOXIDE 32.3 mmol/L (21.0-32.0); CREATININE - SERUM 1.6 mg/dL (0.6-1.3); POTASSIUM - SERUM 3.7 mmol/L (3.5-5.1)
== END | disposition home or self-care (01) ==
LOC: D.RAD 12:51
PROVIDERS: ATTEND Thoracic Surgery (Cardiothoracic Vascular Surgery)
DX: Z00.00 Encounter for general adult medical examination without abnormal findings (principal)

== ENCOUNTER 2018-12-08 08:56 | Inpatient (IN) | payer MEDICARE ==
[~2018-12-08] VITALS: Ht 162.6 cm; Wt 65.8 kg
[~2018-12-08 08:56] MED LIST changes: -COLCRYS0.6 MG PO; -FIBERCON625 MG PO; -FLORAJEN3 CAPS460 MG PO; -HUMALOG 30100 UNITS/ SC; -MERREM 1 GM/NS 11 G1 IV; -PROTONIX40 MG PO; -VIBRAMYCIN50 MG PO
[2018-12-08 10:11] LABS: BASOPHILS 0.2 % (0-2); EOSINOPHILS 0.3 % (0-7); HEMATOCRIT 38.8 % (36.0-48.0); HEMOGLOBIN 13.1 g/dL (12-16); IMMATURE GRANULOCYTES 0.2 % (0-5); LYMPHOCYTES 6.2 % (15-50); MCH 29.8 pg (26.0-34.0); MCHC 33.8 g/dL (31.0-37.0); MCV 88.2 fL (80.0-100.0); MEAN PLATELET VOLUME 11.1 fL (7.4-10.4); MONOCYTES 7.2 % (2-11); NEUTROPHILS 85.9 % (40-80); PLATELET COUNT 200 10x3/uL (130-400); WBC 12.2 10x3/uL (4.8-10.8)
[2018-12-08 10:32] LABS: ALBUMIN 3.3 g/dL (3.4-5.0); ANION GAP 10.7 mmol/L (8-16); BILIRUBIN - TOTAL 0.45 mg/dL (0.2-1.3); CALCIUM 9.8 mg/dL (8.5-10.1); CARBON DIOXIDE 32.8 mmol/L (21.0-32.0); CREATININE - SERUM 1.3 mg/dL (0.6-1.3); MAGNESIUM - SERUM 2.2 mg/dL (1.8-2.4); POTASSIUM - SERUM 4.5 mmol/L (3.5-5.1); PROTEIN - SERUM 7.7 g/dL (6.4-8.2); URIC ACID 6.8 mg/dL (2.6-7.2)
[2018-12-08 10:37] LABS: C-REACTIVE PROTEIN 22.5 mg/dL (0.0-0.9)
--- NOTE | 2018-12-08 11:01 | NUR ---
ASSUMED CARE OF PATIENT AT THIS TIME. PT RESTING QUIETLY IN BED WITH EYES CLOSED, RESPIRATIONS EVEN AND UNLABORED. NO ACUTE DISTRESS NOTED, WILL CONTINUE TO MONITOR FOR CHANGES.
[2018-12-08 11:34] LABS: ERYTHROCYTE SEDIMENTATION RATE 80 mm/hr (0-30)
[2018-12-08 13:55] LABS: PROTEIN - BODY FLUID 4.4 G/DL
[2018-12-08 15:13] LABS: MACROPHAGES BF 3 %; NEUT - BF 94 %
--- NOTE | 2018-12-08 16:59 | NUR ---
zosyn stopped at 1700
--- NOTE | 2018-12-08 17:21 | MORECARE ---
CASE MANAGEMENT DISCHARGE SUMMARY PATIENT: KASSANDRA REYNOLDS UNIT: [id number] ADM DATE: 12/08/18 AGE: 63 : 51 SEX: F ROOM/BED: D.[facility] AUTHOR: ESTEBAN KOCH PHYSICIAN: REFERRING PHYSICIAN: SAMARIA LYLE MD DATE OF SERVICE: 12/08/18 Discharge Plan Patient Name: KASSANDRA REYNOLDS Facility: [facility]:[place] : 1955 Planned Disposition: Home Hlth Svc w Plan Readm Anticipated Discharge Date: Discharge Date: Expected LOS: Initial Reviewer: [id number] Initial Review Date: 12/08/2018 Generated: 12/08/18 6:21 pm Patient Name: KASSANDRA REYNOLDS Page [id number] at 1721 All edits/amendments must be made on the electronic document DICTATION DATE: 12/08/181720 CRAB CATCHER: EFRAÍN 12/08/181720 RPT#: [id number] DC DATE: STATUS: ADM IN [facility] [address] [place] [address] END OF REPORT
--- NOTE | 2018-12-08 17:29 | MORECARE ---
CASE MANAGEMENT DISCHARGE SUMMARY PATIENT: KASSANDRA REYNOLDS UNIT: [id number] ADM DATE: 12/08/18 AGE: 63 : [birth year] SEX: F ROOM/BED: D.2231 AUTHOR: ESTEBAN KOCH PHYSICIAN: REFERRING PHYSICIAN: SAMARIA LYLE MD DATE OF SERVICE: 12/08/18 Discharge Plan Patient Name: KASSANDRA REYNOLDS Facility: [facility]:[place] : 1955 Planned Disposition: Home Hlth Svc w Plan Readm Anticipated Discharge Date: Discharge Date: Expected LOS: Initial Reviewer: [email or web address] Initial Review Date: 12/08/2018 Generated: 12/08/18 6:29 pm DCP- Discharge Planning Updated by [email or web address]: Kusum Florez on 12/08/18 4:[address] Patient Name: KASSANDRA REYNOLDS Admission Status: ER Accout number: [id number] Admission Date: 12-08-2018 : 1955 Admission Diagnosis: Attending: SAMARIA LYLE Current LOS: 1 Anticipated DC Date: Planned Disposition: Home Hlth Svc w Plan Readm Primary Insurance: MEDICARE A & B Discharge Planning Comments: DC PLAN: Return home with friend and [facility]. ANTICIPATED DC NEEDS: Said Dr. Jones is trying to set her up with Cardiac Rehab. CM met with patient to complete initial dc planning assessment. CM educated patient on the CM role and verbal consent given by patient to complete assessment. CM verified patient's address, phone number, and emergency contact phone numbers. Patient lives at home with a good friend. Patient currently has [facility] and she is not sure she wants to resume at discharge. ERIKA form signed by patient for resumption of [facility] in case she changes her mind. Signed form placed in chart and signed form given to patient. She also reported that Dr. Jones is trying to arrange Cardiac Rehab for her but she is not sure when she will be starting. CM left message with Rosalinda in Cardiac Rehab for follow upl At discharge patient plans to return home and feels this is a safe discharge. Patient denied further known discharge needs at this time. . Patient reports Mala will transport her home at time of discharge.CM will continue to follow and will assist as needed with dc plans/needs. Cane Cutter: Kusum Florez RN,CCM DCPIA - Discharge Planning Initial Assessment Updated by [id number]: Kusum Florez on 12/08/18 5:22 pm * Is the patient Alert and Oriented? Yes * How many steps to enter\exit or inside your home? * PCP NO PCP * [facility] * Preadmission Environment Home Alone * ADLs Independent * Equipment Bedside Commode Cane Glucometer Rolling Walker * List name and contact numbers for known caregivers / representatives who currently or will assist patient after discharge: MALA WILKINS - FRIEND/ROOM [facility] - [phone] * Verbal permission to speak to the caregivers and representatives has been obtained from the patient. Yes * Community resources currently utilized Home Health * Please name any agencies selected above. NOT SURE SHE WANTS TO RESUME AT [place]. ERIKA SIGNED FOR [facility] AT [place]. * Additional services required to return to the preadmission environment? No * Can the patient safely return to the preadmission environment? Yes * Has this patient been hospitalized within the prior 30 days at any hospital? Yes Last DP export: 12/08/18 4:21 p Patient Name: KASSANDRA REYNOLDS Page [phone] at 1729 All edits/amendments must be made on the electronic document DICTATION DATE: 12/08/181727 HOT STRIP MILL INSPECTOR: EFRAÍN 12/08/181727 RPT#: [id number] DC DATE: STATUS: ADM IN [facility] [address] [place] [address] END OF REPORT
--- NOTE | 2018-12-08 17:46 | NUR ---
RECEIVED PATIENT FROM ER. ALERT AND ORIENTED. C/O LEFT KNEE PAIN AND SWELLING. GAVE MORPHINE FOR PAIN. NO S/S OF ACUTE DISTRESS NOTED. VITALS STABLE. PT DENIES ANY NEEDS. WCTM
[2018-12-08 17:55] VITALS: BP 135/65; BMI 24.9
[2018-12-08 20:00] VITALS: BP 122/44
--- NOTE | 2018-12-08 20:00 | NUR ---
ALERT RESTING IN BED, REPORTS PAIN MED THAT SHE GOT EARLIER DIDNT HELP KNEE PAIN AT ALL, WILL CONTACT DR JULES FOR PAIN MED, SEE SHIFT ASSESSMENT CALL LIGHT IN REACH
[2018-12-09] VITALS: BP 105/54
[2018-12-09 01:11] LABS: APPEARANCE HAZY (CLEAR); BILIRUBIN NEGATIVE (NEGATIVE); COLOR YELLOW (YELLOW); EPITHELIAL CELLS 0-5 /hpf (0-5); GLUCOSE NEGATIVE (NEGATIVE); KETONE SMALL mg/dL (NEGATIVE); NITRITE NEGATIVE (NEGATIVE); PROTEIN 1+ mg/dL (NEGATIVE); SPECIFIC GRAVITY 1.015 (1.005-1.020); UROBILINOGEN NORMAL (NORMAL); WHITE CELLS - URINE 0-5 /hpf (0-5)
[2018-12-09 01:12] LABS: AMORPHOUS SEDIMENT <1+ /lpf (NONE SEEN)
--- NOTE | 2018-12-09 01:42 | NUR ---
DILAUDID RUBBER MILL TENDER STARTED ORDERED
[2018-12-09 04:00] VITALS: BP 125/65
[2018-12-09 06:48] LABS: BASOPHILS 0.1 % (0-2); EOSINOPHILS 0.5 % (0-7); HEMATOCRIT 33.5 % (36.0-48.0); IMMATURE GRANULOCYTES 0.4 % (0-5); LYMPHOCYTES 6.9 % (15-50); MCH 29.1 pg (26.0-34.0); MCHC 32.8 g/dL (31.0-37.0); MCV 88.6 fL (80.0-100.0); MEAN PLATELET VOLUME 11.9 fL (7.4-10.4); MONOCYTES 8.8 % (2-11); NEUTROPHILS 83.3 % (40-80); PLATELET COUNT 190 10x3/uL (130-400); RBC 3.78 10x6/uL (4.00-5.40); RDW 14.3 % (11.5-14.5)
[2018-12-09 07:11] LABS: CALCIUM 8.9 mg/dL (8.5-10.1); CARBON DIOXIDE 26.2 mmol/L (21.0-32.0); CREATININE - SERUM 1.3 mg/dL (0.6-1.3); PHOSPHOROUS 4.1 mg/dL (2.5-4.9); POTASSIUM - SERUM 4.2 mmol/L (3.5-5.1)
--- NOTE | 2018-12-09 07:20 | NUR ---
ALERT AND ORIENTED. NO C/O PAIN. DILAUDID SCHOOL AGE TEACHER, MANAGING PAIN. NO S/S OF ACUTE DISTRESS NOTED. IV TO RIGHT HAND, NS INFUSING @ 75ML/HR. SITE PATENT WITHOUT REDNESS OR SWELLING. PT DENIES ANY NEEDS. CALL LIGHT IN REACH. WILL CONTINUE TO MONITOR.
--- NOTE | 2018-12-09 08:20 | NUR ---
PT TAKEN TO SURGERY VIA BED ACCOMPANIED BY SURGICAL STAFF.
[2018-12-09 09:35] VITALS: BP 127/54
--- NOTE | 2018-12-09 10:35 | NUR ---
CALLED [facility] AND TALKED TO LOGAN ÁLVAREZ TO NOTIFY HER OF TELEMETRY ORDER FOR KASSANDRA REYNOLDS. SHE VOCALIZED SHE WOULD CALL TELEMETRY AND GET A BOOK FOR HER.
[2018-12-09 10:44] VITALS: BP 113/71
--- NOTE | 2018-12-09 10:44 | NUR ---
RECEIVED PT FROM RECOVERY. VITALS STABLE. ON 3L O2, NC. NO C/O PAIN. NO S/S OF ACUTE DISTRESS NOTED. DRESSING TO LEFT KNEE, C/D/I.
[2018-12-09 12:09] VITALS: Ht 162.6 cm; Wt 65.8 kg
--- NOTE | 2018-12-09 15:46 | NUR ---
I have reviewed this patient and I concur with the Shift Assessment completed by the Licensed Practical Nurse today this shift.
[2018-12-09 17:16] VITALS: BP 113/46
--- NOTE | 2018-12-09 18:25 | NUR ---
ALERT AND ORIENTED, WATCHING TV. NO C/O PAIN, DILAUDID MAKE UP WORKER MANAGING PAIN. NO S/S OF ACUTE DISTRESS NOTED. SCD ON. CALL LIGHT IN REACH. PT DENIES ANY NEEDS. WILL CONTINUE TO MONITOR.
[2018-12-09 20:00] VITALS: BP 116/60
--- NOTE | 2018-12-09 20:00 | NUR ---
EYES CLOSED AROUSED EASILY TO VOICE, LUNGS CLEAR RESP UNLABORED, O2 IN USE VIA N/C, KD WRAP TO LEFT KNEE, REPORTS GOOD PAIN CONTROL WITH WHITTLING ROOM OPERATOR, SEE SHIFT ASSESSMENT CALL LIGHT IN REACH
[2018-12-10] VITALS: BP 111/50
[2018-12-10 04:00] VITALS: BP 118/53
[2018-12-10 06:29] LABS: ANION GAP 16.7 mmol/L (8-16); CALCIUM 8.5 mg/dL (8.5-10.1); CARBON DIOXIDE 23.3 mmol/L (21.0-32.0); CREATININE - SERUM 1.3 mg/dL (0.6-1.3); PHOSPHOROUS 4.2 mg/dL (2.5-4.9); VANCOMYCIN - RANDOM 24.3 ug/mL (10.0-20.0)
[2018-12-10 06:35] LABS: BASOPHILS 0.2 % (0-2); EOSINOPHILS 0.4 % (0-7); HEMATOCRIT 31.2 % (36.0-48.0); HEMOGLOBIN 10.1 g/dL (12-16); IMMATURE GRANULOCYTES 0.2 % (0-5); LYMPHOCYTES 8.2 % (15-50); MCH 28.7 pg (26.0-34.0); MCHC 32.4 g/dL (31.0-37.0); MCV 88.6 fL (80.0-100.0); MEAN PLATELET VOLUME 12.1 fL (7.4-10.4); MONOCYTES 7.3 % (2-11); NEUTROPHILS 83.7 % (40-80); PLATELET COUNT 182 10x3/uL (130-400); RBC 3.52 10x6/uL (4.00-5.40); RDW 14.5 % (11.5-14.5); WBC 9.3 10x3/uL (4.8-10.8)
--- NOTE | 2018-12-10 07:20 | NUR ---
ALERT AND ORIENTED, WATCHING TELEVISION. NO C/O PAIN. NO S/S OF ACUTE DISTRESS NOTED. NO NAUSEA OR VOMITING SINCE ADMISSION. PT UP AD JACOB. PT WANTING TO GO HOME. STATED, "I FEEL FINE. I DON'T UNDERSTAND WHY I AM ADMITTED. I WANT TO GO HOME." IV TO RIGHT FOREARM, NS INFUSING @ 75ML/HR. SITE PATENT WITHOUT REDNESS OR SWELLING. PT DENIES ANY NEEDS. CALL LIGHT IN REACH. WILL CONTINUE TO MONITOR.
--- NOTE | 2018-12-10 07:40 | NUR ---
ALERT AND ORIENTED, WATCHING TELEVISION. NO C/O PAIN, DILAUDID APPRAISAL COORDINATOR MANAGING PAIN. NO S/S OF ACUTE DISTRESS NOTED. KD WRAP TO LEFT KNEE, C/D/I. ON 3L O2, NC. IV TO RIGHT HAND, NS INFUSING @ 75ML/HR. SITE PATENT WITHOUT REDNESS OR SWELLING. ON TELEMETRY, 77 SR. PT DENIES ANY NEEDS. CALL LIGHT IN REACH. WILL CONTINUE TO MONITOR.
[2018-12-10 08:07] VITALS: BP 109/46
[2018-12-10 14:01] VITALS: BP 105/44
[2018-12-10 16:02] LABS: ERYTHROCYTE SEDIMENTATION RATE 128 mm/hr (0-30)
--- NOTE | 2018-12-10 16:44 | NUR ---
I have reviewed this patient and I concur with the Shift Assessment completed by the Licensed Practical Nurse today this shift.
[2018-12-10 17:28] VITALS: BP 129/36
--- NOTE | 2018-12-10 19:30 | NUR ---
PT LYING IN BED RESTING WITH EYES CLOSED, AWAKENS TO VERBAL STIMULI. ALERT AND ORIENTED. IV RIGHT HAND INFUSING NS @ 75 WITH DILAUDID BROILER MANAGER. SCD TO RIGHT LEG. PT STATES BROILER MANAGER IS PROVIDING ADEQUATE PAIN CONTROL. DENIES NEEDS AT THIS TIME. CL IN REACH, WILL CTM
[2018-12-10 20:00] VITALS: BP 105/47
[2018-12-11] VITALS: BP 114/46
[2018-12-11 04:00] VITALS: BP 116/48
[2018-12-11 06:44] LABS: BASOPHILS 0.1 % (0-2); EOSINOPHILS 0.4 % (0-7); HEMATOCRIT 25.8 % (36.0-48.0); HEMOGLOBIN 8.1 g/dL (12-16); IMMATURE GRANULOCYTES 0.4 % (0-5); LYMPHOCYTES 8.1 % (15-50); MCH 28.3 pg (26.0-34.0); MCHC 31.4 g/dL (31.0-37.0); MCV 90.2 fL (80.0-100.0); MEAN PLATELET VOLUME 11.2 fL (7.4-10.4); MONOCYTES 6.8 % (2-11); NEUTROPHILS 84.2 % (40-80); PLATELET COUNT 169 10x3/uL (130-400); RBC 2.86 10x6/uL (4.00-5.40); RDW 14.5 % (11.5-14.5); WBC 9.1 10x3/uL (4.8-10.8)
--- NOTE | 2018-12-11 07:02 | NUR ---
PT IS RESTING IN BED WITH EYES CLOSED. RESPIRATIONS ARE EVEN AND UNLABORED. PT IS EASILY AROUSED WITH VERBAL STIMULATION. PT IS AAO X 4 UPON AROUSAL. SOOT BLOWER DIALUDID AVAILABLE PER ORDER. PT EDUCATED ON SOOT BLOWER USE AND PROPER USE OF SOOT BLOWER BUTTON. PT VERBALIZES UNDERSTANDING AND DENIES FURTHER QUESTIONS/CONCERNS. LEFT KNEE DRESSING IN C/D/I. PT WITH 2+ EDEMA TO BILATERAL LOWER EXTREMITIES. CAP REFILL <3 SECONDS. PEDAL PULSES PALP. PT REPORTS EXTREME PAIN WITH TOUCH TO BILATERAL LOWER LEGS. PT DENIES FURTHER NEEDS. PT DENIES PRESENCE OF N/V. BED IS IN THE LOWEST POSITION. CALL LIGHT AND BEDSIDE TABLE ARE WITHIN REACH. SIDE RAILS X 2. WILL CONT TO MONITOR.
[2018-12-11 07:08] LABS: ANION GAP 12.6 mmol/L (8-16); CALCIUM 8.8 mg/dL (8.5-10.1); CARBON DIOXIDE 23.9 mmol/L (21.0-32.0); CREATININE - SERUM 1.3 mg/dL (0.6-1.3); MAGNESIUM - SERUM 1.9 mg/dL (1.8-2.4); POTASSIUM - SERUM 4.5 mmol/L (3.5-5.1)
[2018-12-11 07:11] LABS: PHOSPHOROUS 2.9 mg/dL (2.5-4.9)
[2018-12-11 08:34] VITALS: BP 118/43
[2018-12-11 10:44] LABS: ERYTHROCYTE SEDIMENTATION RATE 135 mm/hr (0-30)
--- NOTE | 2018-12-11 10:45 | NUR ---
PIV TO RIGHT ARM WITH SLIGHT SWELLING, PT VERBALIZES DISCOMFORT WITH INFUSION. NO REDNESS NOTED. PIV REMOVED WITH CATHETER TIP INTACT FOR PT COMFORT. DRESSING APPLIED. PIV RESITE TO RIGHT FOREARM. PT TOLERATED WELL. IV INFUSING WITHOUT DIFFICULTY.
--- NOTE | 2018-12-11 12:22 | NUR ---
PT INCONTINENT OF STOOL AT THIS TIME. PT REPORTS THAT SHE "BELIEVES" THAT SHE IS HAVING A BM. SMALL LOOSE DARK BROWN STOOL NOTED. COMPLETE BED CHANGE. PT CLEANED. STOOL SAMPLE RECD AND TAKEN TO LAB. BED IS IN THE LOWEST POSITION. CALL LIGHT AND BEDSIDE TABLE ARE WITHIN REACH. SIDE RAILS X 2. PT DENIES FURTHER NEEDS. WILL CONT TO MONITOR.
--- NOTE | 2018-12-11 12:24 | NUR ---
PT EDUCATED ON FREQUENT POSITION CHANGES WHILE IN BED TO PREVENT PRESSURE ULCERS. PT VERBALIZES UNDERSTANDING AND IS LAYING ON RIGHT SIDE AT THIS TIME. PT REPORTS THAT SHE FEELS BETTER WHEN SHE LAYS ON HER BACK.
[2018-12-11 13:48] VITALS: BP 105/52
[2018-12-11 17:18] VITALS: BP 114/50
--- NOTE | 2018-12-11 19:50 | NUR ---
LYING IN BED WATCHING TV. ALERT AND ORIENTED X4. RATES PAIN IN RT FOOT 4. PROFESSIONAL TUTOR DILAUDID IN USE. DSRG NOTED TO LT KNEE WITH KD WRAP C/D/I. 1+ EDEMA NOTED TO BLE. TELEMETRY SHOWS SR WITH RATE OF 74. RESP IRREG. O2 @ 2L/NC. HAS BEEN INCONT OF BOWELS TODAY SHE REPORTS. NS @ 75 ML/HR. SR ELEVATED X2. CL IN REACH.
[2018-12-11 21:15] VITALS: BP 106/40
[2018-12-12 01:53] VITALS: BP 134/80
--- NOTE | 2018-12-12 02:11 | NUR ---
HAS RESTED WELL SO FAR THIS SHIFT. NO DISTRESS. LYING IN BED WITH EYES CLOSED. RESP EVEN AND NONLABORED. CL IN REACH.
[2018-12-12 05:36] VITALS: BP 113/51
[2018-12-12 06:54] LABS: BASOPHILS 0.1 % (0-2); HEMATOCRIT 24.6 % (36.0-48.0); HEMOGLOBIN 7.8 g/dL (12-16); IMMATURE GRANULOCYTES 0.3 % (0-5); LYMPHOCYTES 9.2 % (15-50); MCH 28.6 pg (26.0-34.0); MCHC 31.7 g/dL (31.0-37.0); MCV 90.1 fL (80.0-100.0); MONOCYTES 6.7 % (2-11); NEUTROPHILS 82.7 % (40-80); PLATELET COUNT 188 10x3/uL (130-400); RBC 2.73 10x6/uL (4.00-5.40); RDW 14.7 % (11.5-14.5)
[2018-12-12 07:10] LABS: ANION GAP 12.9 mmol/L (8-16); CALCIUM 8.9 mg/dL (8.5-10.1); CARBON DIOXIDE 23.2 mmol/L (21.0-32.0); CREATININE - SERUM 1.2 mg/dL (0.6-1.3); MAGNESIUM - SERUM 1.7 mg/dL (1.8-2.4); PHOSPHOROUS 3.2 mg/dL (2.5-4.9); POTASSIUM - SERUM 4.1 mmol/L (3.5-5.1)
[2018-12-12 07:19] LABS: WBC 6.8 10x3/uL (4.8-10.8)
[2018-12-12 08:48] LABS: APTT 41.8 SECONDS (22.8-39.4); INR 1.43 (0.85-1.17); PROTIME 16.8 SECONDS (11.6-15.0)
[2018-12-12 08:59] VITALS: BP 118/42
--- NOTE | 2018-12-12 10:34 | NUR ---
PT ALERT X 4. BREATH SOUNDS CLEAR BILAT, 2L O2 PER NC. TELEMETRY IN PLACE. IV TO RIGHT FOREARM, PATENT, DRESSING CDI. KD TO LEFT KNEE, DRESSING CDI. PT REPORTING PAIN OF 5/10, NEGATIVE RETOUCHER IN USE, WILL MONITOR. BED LOW, CALL LIGHT IN REACH. NO OTHER NEEDS AT THIS TIME.
--- NOTE | 2018-12-12 10:38 | NUR ---
STARTED PRBC, VSS, PT TOLERATING WELL. WILL MONITOR. NO NEEDS AT THIS TIME.
[2018-12-12 16:08] LABS: ANA REFLEX - DIRECT Negative (Negative)
[2018-12-12 17:51] VITALS: BP 134/56
--- NOTE | 2018-12-12 20:00 | NUR ---
EYES CLOSED RESTING IN BED AROUSED EASILY, REPORTS GOOD PAIN CONTROL WITH SENIOR INTERIOR DESIGNER, BANDAIDS INTACT TO LEFT KNEE, NO DRAINAGE NOTED, SEES SHIFT ASSESSMENT, CALL LIGHT IN REACH
[2018-12-12 21:16] VITALS: BP 114/49
[2018-12-13 00:56] VITALS: BP 127/50
[2018-12-13 05:54] VITALS: BP 135/58
[2018-12-13 07:46] LABS: BASOPHILS 0 % (0-2); EOSINOPHILS 1.4 % (0-7); HEMATOCRIT 28.9 % (36.0-48.0); HEMOGLOBIN 9.3 g/dL (12-16); IMMATURE GRANULOCYTES 0.3 % (0-5); MCH 28.4 pg (26.0-34.0); MCHC 32.2 g/dL (31.0-37.0); MCV 88.4 fL (80.0-100.0); MEAN PLATELET VOLUME 11.5 fL (7.4-10.4); MONOCYTES 5.8 % (2-11); NEUTROPHILS 86.5 % (40-80); PLATELET COUNT 196 10x3/uL (130-400); RBC 3.27 10x6/uL (4.00-5.40); RDW 14.9 % (11.5-14.5); WBC 6.2 10x3/uL (4.8-10.8)
[2018-12-13 07:53] LABS: % SATURATION 25 % (15-55); IRON 25 ug/dl (35-150); TOTAL IRON BIND CAPACITY 97 ug/dl (260-445); UNSAT IRON BIND CAPACITY 72 ug/dl (150-375)
--- NOTE | 2018-12-13 07:58 | NUR ---
pt resting in bed. aroused by verbal stimuli. co of nausea. zofran given. no s/s of acute distress. cl in place.
[2018-12-13 08:39] LABS: BILIRUBIN - DIRECT 0.07 mg/dL (0.00-0.30); BILIRUBIN - TOTAL 0.32 mg/dL (0.2-1.3); CALCIUM 8.2 mg/dL (8.5-10.1); CARBON DIOXIDE 21.3 mmol/L (21.0-32.0); CREATININE - SERUM 0.9 mg/dL (0.6-1.3); MAGNESIUM - SERUM 1.6 mg/dL (1.8-2.4); POTASSIUM - SERUM 4.3 mmol/L (3.5-5.1)
[2018-12-13 08:43] LABS: PHOSPHOROUS 1.8 mg/dL (2.5-4.9)
[2018-12-13 09:45] VITALS: BP 154/68
[2018-12-13 11:25] LABS: ERYTHROCYTE SEDIMENTATION RATE 140 mm/hr (0-30)
[2018-12-13 13:44] VITALS: BP 123/65
--- NOTE | 2018-12-13 15:17 | NUR ---
Nutrition follow-up: Diet: ADA PO intake ~25% of meals Labs reivewed; ESR: 140, CRP: 22.2, anemia RDN following.
[2018-12-13 17:08] VITALS: BP 129/55
--- NOTE | 2018-12-13 18:04 | NUR ---
PT RESTING IN BED. EATING DINNER. NO S/S OF ACUTE DISTRESS. CL IN PLACE.
--- NOTE | 2018-12-13 20:00 | NUR ---
ALERT SITTING UP IN BED, REPORTS FEELING BETTER TODAY, SEE SHIFT ASSESSMENT, CALL LIGHT IN REACH, BANDAID DRESSING INTACT TO LEFT KNEE, PROCESS DEVELOPMENT ASSOCIATE IN USE FOR PAIN CONTROL
[2018-12-13 22:39] VITALS: BP 121/44
[2018-12-14 03:07] LABS: RMSF IGM 0.22 index (0.00-0.89)
[2018-12-14 05:36] VITALS: BP 124/80
[2018-12-14 06:45] LABS: BASOPHILS 0.2 % (0-2); EOSINOPHILS 2.5 % (0-7); HEMATOCRIT 29.1 % (36.0-48.0); HEMOGLOBIN 9.5 g/dL (12-16); IMMATURE GRANULOCYTES 0.5 % (0-5); LYMPHOCYTES 13.3 % (15-50); MCHC 32.6 g/dL (31.0-37.0); MCV 88.7 fL (80.0-100.0); MEAN PLATELET VOLUME 10.9 fL (7.4-10.4); MONOCYTES 7.2 % (2-11); NEUTROPHILS 76.3 % (40-80); PLATELET COUNT 212 10x3/uL (130-400); RBC 3.28 10x6/uL (4.00-5.40); RDW 14.8 % (11.5-14.5)
[2018-12-14 07:09] LABS: ALBUMIN 1.7 g/dL (3.4-5.0); ALKALINE PHOSPHATASE 89 U/L (46-116); ALT (SGPT) 31 U/L (10-68); BILIRUBIN - TOTAL 0.22 mg/dL (0.2-1.3); CALC OSMOLALITY 281 mosm/kg (275-300); CALCIUM 8.9 mg/dL (8.5-10.1); CARBON DIOXIDE 26.4 mmol/L (21.0-32.0); CHLORIDE - SERUM 108 mmol/L (98-107); CREATININE - SERUM 0.8 mg/dL (0.6-1.3); GLUCOSE 110 mg/dL (74-106); MAGNESIUM - SERUM 1.7 mg/dL (1.8-2.4); POTASSIUM - SERUM 4.2 mmol/L (3.5-5.1); PROTEIN - SERUM 5.9 g/dL (6.4-8.2); SODIUM 141 mmol/L (136-145); UREA NITROGEN 12 mg/dL (7-18); eGFR NON AFRICAN AMERICAN 76 mL/min (90-120)
--- NOTE | 2018-12-14 07:50 | NUR ---
AWAKE AND ALERT. ORIENTED X3. C/O SOME PAIN TO LEFT KNEE THIS AM. WILL MONITOR. LUNGS ARE CLEAR BILATERALLY, NO COUGH NOTED. SKIN IS INTACT WITHOUT REDNESS. IV TO RIGHT FOREARM IS PATENT WITHOUT REDNESS AT INSERTION SITE. DENIES NEEDS.
[2018-12-14 09:01] VITALS: BP 119/53
--- NOTE | 2018-12-14 09:15 | NUR ---
ATE MOST OF BREAKFAST. TOOK AM MEDS WITHOUT DIFFICUTLY. DENIES NEEDS.
--- NOTE | 2018-12-14 11:00 | OP ---
PATIENT NAME: KASSANDRA REYNOLDS MEDICAL RECORD: [id number] :[birth year] LOCATION:D[facility] [place] ADMISSION DATE:12/08/18 SURGEON: GINO JULES MD DATE OF OPERATION: 12/09/2018 PREOPERATIVE DIAGNOSIS: Infected left knee. POSTOPERATIVE DIAGNOSIS: Infected left knee. PROCEDURE: Arthroscopic irrigation and debridement of infected left knee. SURGEON: Gino Jules MD ANESTHESIA: General. INTRAOPERATIVE COMPLICATIONS: None. SUMMARY OF PATHOLOGIC FINDINGS: The patient's synovial fluid was bloody and viscous, it did have the overall appearance of infection. OPERATIVE SUMMARY IN DETAIL: After obtaining the appropriate preoperative orthopedic surgery consent as well as anesthetic consultation, evaluation and clearance, the patient was brought to the operating room and placed on the operating table in supine position. After general laryngeal mask airway was administered, tourniquet was placed on the proximal aspect of left lower extremity. Left lower extremity was then prepped and draped in routine sterile fashion. The leg was elevated and exsanguinated, tourniquet was inflated to 350 mmHg. Routine inferolateral portal was established followed by superomedial portal and inferomedial portal. Diagnostic arthroscopy did show the patient to have what appeared to be phlegmon bloody synovial fluid, portions of this had already been sent to the lab for evaluation. At this point, serial and sequential debridement was done of both medial and lateral gutter, suprapopliteal recess as well as between the condyles. No meniscal tearing was noted. No meniscal pathology was noted. After a total of 12 liters of fluid had been irrigated through the knee, arthroscopy portals were closed in routine interrupted fashion after 0.25% Marcaine with epinephrine was instilled in it. Having completed this, sterile dressings were applied. Tourniquet was deflated. The patient was awaken and taken to the recovery room in stable condition. All final needle and sponge counts were correct. TRANSINT:[id number] Voice Confirmation ID: [id number] DOCUMENT ID: [id number] GINO JULES MD at 1100 CC: [id number] DICTATION DATE: 12/14/18914 RESIDENTIAL BUILDER: 12/14/18 1023 ADM IN [facility] [id number] [place] [address]
--- NOTE | 2018-12-14 12:00 | NUR ---
FSBS 136. NO ACTION TAKEN.
[2018-12-14 12:48] VITALS: BP 128/46
[2018-12-14 13:10] LABS: EHRLICHIA CHAFF IGG Negative (Neg:<1:64); EHRLICHIA CHAFF IGM Negative (Neg:<1:20); HGE IGG TITER Negative (Neg:<1:64); HGE IGM TITER Negative (Neg:<1:20)
--- NOTE | 2018-12-14 16:30 | NUR ---
FSBS 186. GIVEN 2 UNITS SUBQ PER SS. DENIES NEEDS.
[2018-12-14 16:51] VITALS: BP 109/44
--- NOTE | 2018-12-14 17:30 | NUR ---
RECEIVED TO ROOM 2230 VIA FROM OUTPATIENTS. A/O X3. SMALL INCISION NOTED TO LOWER MID BACK, WHICH HAS A DRY INTACT DRESSING IN PLACE. AMBULATED TO WITH SBA. VOIDED WITHOUT DIFFICULTY.
--- NOTE | 2018-12-14 18:51 | NUR ---
ATE MOST OF SUPPER. RESTING QUIETLY IN BED. DENIES NEEDS. NO CHANGES NOTED.
[2018-12-14 21:43] VITALS: BP 125/80
[2018-12-15 01:28] VITALS: BP 134/84
--- NOTE | 2018-12-15 03:00 | NUR ---
I have reviewed this patient and I concur with the Shift Assessment completed by the Licensed Practical Nurse today this shift.
--- NOTE | 2018-12-15 03:02 | NUR ---
PT RESTING IN BED. EYES CLOSED. NO SIGNS OF DISTRESS. BREATHING EVEN AND UNLABORED. IV SITE LT FA DRESSING CLEAN DRY AND INTACT. NO SIGNS OF INFECTION. BOWEL SOUNDS ACTIVE. 2LO2 NASL CANNULA. LT KNEE DRESSING CLEAN DRY AND INTACT. WILL CONTINUE PLAN OF CARE. CALL LIGHT IN REACH. BED LOWERED AND LOCKED. BED RAILS UPX2.
[2018-12-15 04:59] VITALS: BP 128/45
--- NOTE | 2018-12-15 07:42 | NUR ---
AWAKE AND ALERT. ORIENTED X3. NO C/O AT THIS TIME. LUNGS HAVE FAINT WHEEZES IN LOWER LOBES. REPORTS NON PRODUCTIVE COUGH. SKIN IS INTACT WTIHOUT REDNESS. 2-3 PLUS EDEMA NOTED TO BILATERAL LE. WILL MONITOR. IV TO RIGHT THUMB PATETN WTIHOUT REDNESS AT INSERTION SITE. REPORTS GOOD BM SINCE SURGERY. DENIES NEEDS.
--- NOTE | 2018-12-15 08:51 | MORECARE ---
CASE MANAGEMENT DISCHARGE SUMMARY PATIENT: KASSANDRA REYNOLDS UNIT: [id number] ADM DATE: 12/08/18 AGE: 63 : 51 SEX: F ROOM/BED: D.2231 AUTHOR: ZEEDOC PHYSICIAN: REFERRING PHYSICIAN: SAMARIA LYLE MD DATE OF SERVICE: 12/15/18 Discharge Plan Patient Name: KASSANDRA REYNOLDS Facility: [facility]:[place] : 1955 Planned Disposition: Home Hlth Svc w Plan Readm Anticipated Discharge Date: Discharge Date: Expected LOS: Initial Reviewer: [email or web address] Initial Review Date: 12/08/2018 Generated: 12/15/18 9:50 am Comments DCP- Discharge Planning Updated by [email or web address]: Sandra Ly on 12/15/18 7:[address] Patient Name: KASSANDRA REYNOLDS Admission Status: ER Accout number: [id number] Admission Date: 12-08-2018 : 1955 Admission Diagnosis:PYOGENIC ARTHRITIS, UNSPECIFIED Attending: SAMARIA LYLE Current LOS: 7 Anticipated DC Date: Planned Disposition: Home Hlth Svc w Plan Readm Primary Insurance: MEDICARE A & B Discharge Planning Comments: PATIENT WANTS [facility], CM WILL FAX REFERRAL TO [facility]. Nuclear Medicine Specialist: Sandra Ly DCP- Discharge Planning Updated by [email or web address]: Kusum Florez on 12/08/18 4:[address] Patient Name: KASSANDRA REYNOLDS Admission Status: ER Accout number: [id number] Admission Date: 12-08-2018 : 1955 Admission Diagnosis: Attending: SAMARIA LYLE Current LOS: 1 Anticipated DC Date: Planned Disposition: Home Hlth Svc w Plan Readm Primary Insurance: MEDICARE A & B Discharge Planning Comments: DC PLAN: Return home with friend and [facility]. ANTICIPATED DC NEEDS: Said Dr. Jones is trying to set her up with Cardiac Rehab. CM met with patient to complete initial dc planning assessment. CM educated patient on the CM role and verbal consent given by patient to complete assessment. CM verified patient's address, phone number, and emergency contact phone numbers. Patient lives at home with a good friend. Patient currently has [facility] and she is not sure she wants to resume at discharge. ERIKA form signed by patient for resumption of [facility] in case she changes her mind. Signed form placed in chart and signed form given to patient. She also reported that Dr. Jones is trying to arrange Cardiac Rehab for her but she is not sure when she will be starting. CM left message with Rosalinda in Cardiac Rehab for follow upl At discharge patient plans to return home and feels this is a safe discharge. Patient denied further known discharge needs at this time. . Patient reports Mala will transport her home at time of discharge.CM will continue to follow and will assist as needed with dc plans/needs. Nuclear Medicine Specialist: Kusum Florez RN,[facility] DCPIA - Discharge Planning Initial Assessment Updated by [email or web address]: Kusum Florez on 12/08/18 5:22 pm * Is the patient Alert and Oriented? Yes * How many steps to enter\exit or inside your home? * PCP NO PCP * [facility]acy [facility] * Preadmission Environment Home Alone * ADLs Independent * Equipment Bedside Commode Cane Glucometer Rolling Walker * List name and contact numbers for known caregivers / representatives who currently or will assist patient after discharge: MALA WILKINS - FRIEND/ROOM mate - [phone] * Verbal permission to speak to the caregivers and representatives has been obtained from the patient. Yes * Community resources currently utilized Home Health * Please name any agencies selected above. NOT SURE SHE WANTS TO RESUME AT [place]. ERIKA SIGNED FOR [facility] [place]. * Additional services required to return to the preadmission environment? No * Can the patient safely return to the preadmission environment? Yes * Has this patient been hospitalized within the prior 30 days at any hospital? Yes External [facility]iders [facility] Next Contact Date: Service Request Date: Service Type: Resolution: Reviewer: Comments: Last DP export: 12/08/18 4:29 p Patient Name: KASSANDRA REYNOLDS Page [id number] at 0851 All edits/amendments must be made on the electronic document DICTATION DATE: 12/15/18849 MUSIC AUTOGRAPHER: EFRAÍN 12/15/18849 RPT#: [id number] [place] DATE: STATUS: ADM IN [facility] [address] [place] [address] END OF REPORT
[2018-12-15 09:01] VITALS: BP 113/52
[2018-12-15 09:16] LABS: BASOPHILS 0.2 % (0-2); EOSINOPHILS 2.7 % (0-7); HEMATOCRIT 31.1 % (36.0-48.0); HEMOGLOBIN 10.1 g/dL (12-16); IMMATURE GRANULOCYTES 0.5 % (0-5); LYMPHOCYTES 12.5 % (15-50); MCH 29.3 pg (26.0-34.0); MCHC 32.5 g/dL (31.0-37.0); MCV 90.1 fL (80.0-100.0); MEAN PLATELET VOLUME 10.4 fL (7.4-10.4); MONOCYTES 5.7 % (2-11); NEUTROPHILS 78.4 % (40-80); PLATELET COUNT 219 10x3/uL (130-400); RBC 3.45 10x6/uL (4.00-5.40)
--- NOTE | 2018-12-15 10:00 | NUR ---
AMBULATED IN [facility] I[facility] PT USING RW.
[2018-12-15 10:03] LABS: ALBUMIN 1.8 g/dL (3.4-5.0); BILIRUBIN - TOTAL 0.25 mg/dL (0.2-1.3); C-REACTIVE PROTEIN 11.9 mg/dL (0.0-0.9); CALCIUM 8.4 mg/dL (8.5-10.1); CARBON DIOXIDE 25.2 mmol/L (21.0-32.0); CREATININE - SERUM 0.9 mg/dL (0.6-1.3); MAGNESIUM - SERUM 1.7 mg/dL (1.8-2.4); POTASSIUM - SERUM 4.2 mmol/L (3.5-5.1); PROTEIN - SERUM 5.3 g/dL (6.4-8.2)
[2018-12-15 10:49] LABS: ERYTHROCYTE SEDIMENTATION RATE 134 mm/hr (0-30)
--- NOTE | 2018-12-15 12:00 | NUR ---
FSBS 150. NO COVERAGE REQUIRED.
[2018-12-15 13:10] LABS: F. TULARENSIS - IGG Negative (Negative); F. TULARENSIS - IGM Negative (Negative)
[2018-12-15 13:26] VITALS: BP 113/61
[2018-12-15] MEDS ORDERED: MERREM 1 GM/NS 11 G1 IV (15:28)
[2018-12-15] MEDS ORDERED: VIBRAMYCIN50 MG PO (15:28)
[2018-12-15] MEDS ORDERED: FIBERCON625 MG PO (15:29)
[2018-12-15] MEDS ORDERED: FLORAJEN3 CAPS460 MG PO (15:29)
[2018-12-15] MEDS ORDERED: PROTONIX40 MG PO (15:30)
[2018-12-15] MEDS ORDERED: HUMALOG 30100 UNITS/ SC (15:30)
[2018-12-15] MEDS ORDERED: COLCRYS0.6 MG PO (15:30)
[2018-12-15 17:25] VITALS: BP 122/69
--- NOTE | 2018-12-15 17:48 | NUR ---
REPORT CALLED TO MIKEL STRICKLAND LPN AT REHAB. ALL QUESTIONS ANSWERED.
--- NOTE | 2018-12-15 17:56 | NUR ---
DISCHARGED TO [facility]. DISCHARGE INSTRUCTIONS GIVEN BOTH VERBALLY AND WRITTEN. ALL QUESTIONS ANSWERED. PATIENT VERBALIZED UNDERSTANDING OF SAME. IV TO RIGHT HAND D/C WTIH CATHETER INTACT. ALL BELONGINGS WITH PATIENT. DISCHARGED VIA THEIR TRANSPORT. NO NEW PRESCRIPTIONS NEEDED.
--- NOTE | 2018-12-21 08:22 | MORECARE ---
CASE MANAGEMENT DISCHARGE SUMMARY PATIENT: KASSANDRA REYNOLDS UNIT: [id number] ADM DATE: 12/08/18 AGE: 63 : 51 SEX: F ROOM/BED: D.2231 AUTHOR: ESTEBAN KOCH PHYSICIAN: REFERRING PHYSICIAN: SAMARIA LYLE MD DATE OF SERVICE: 12/21/18 Discharge Plan Patient Name: KASSANDRA REYNOLDS Facility: [facility]:[place] : 1955 Planned Disposition: Home Hlth Svc w Plan Readm Anticipated Discharge Date: Discharge Date: 12/15/2018 Expected LOS: 0 Initial Reviewer: [email or web address] Initial Review Date: 12/08/2018 Generated: 12/21/18 9:21 am Comments DCP- Discharge Planning Updated by [email or web address]: Sandra Ly on 12/15/18 7:[address] Patient Name: KASSANDRA REYNOLDS Admission Status: ER Accout number: [id number] Admission Date: 12-08-2018 : 1955 Admission Diagnosis:PYOGENIC ARTHRITIS, UNSPECIFIED Attending: SAMARIA LYLE Current LOS: 7 Anticipated DC Date: Planned Disposition: Home Hlth Svc w Plan Readm Primary Insurance: MEDICARE A & B Discharge Planning Comments: PATIENT WANTS [facility], CM WILL FAX REFERRAL TO [facility]. Tc Operator: Sandra Ly DCP- Discharge Planning Updated by [email or web address]: Kusum Florez on 12/08/18 4:[address] Patient Name: KASSANDRA REYNOLDS Admission Status: ER Accout number: [id number] Admission Date: 12-08-2018 : 1955 Admission Diagnosis: Attending: SAMARIA LYLE Current LOS: 1 Anticipated DC Date: Planned Disposition: Home Hlth Svc w Plan Readm Primary Insurance: MEDICARE A & B Discharge Planning Comments: DC PLAN: Return home with friend and [facility]. ANTICIPATED DC NEEDS: Said Dr. Jones is trying to set her up with Cardiac Rehab. CM met with patient to complete initial dc planning assessment. CM educated patient on the CM role and verbal consent given by patient to complete assessment. CM verified patient's address, phone number, and emergency contact phone numbers. Patient lives at home with a good friend. Patient currently has [facility] and she is not sure she wants to resume at discharge. ERIKA form signed by patient for resumption of [facility] in case she changes her mind. Signed form placed in chart and signed form given to patient. She also reported that Dr. Jones is trying to arrange Cardiac Rehab for her but she is not sure when she will be starting. CM left message with Rosalinda in Cardiac Rehab for follow upl At discharge patient plans to return home and feels this is a safe discharge. Patient denied further known discharge needs at this time. . Patient reports Mala will transport her home at time of discharge.CM will continue to follow and will assist as needed with dc plans/needs. Tc Operator: Kusum Florez RN,[facility] DCPIA - Discharge Planning Initial Assessment Updated by [id number]: Kusum Florez on 12/08/18 5:22 pm * Is the patient Alert and Oriented? Yes * How many steps to enter\exit or inside your home? * PCP NO PCP * Pharmacy [facility] * Preadmission Environment Home Alone * ADLs Independent * Equipment Bedside Commode Cane Glucometer Rolling Walker * List name and contact numbers for known caregivers / representatives who currently or will assist patient after discharge: MALA WILKINS - FRIEND/ROOM mate - [phone] * Verbal permission to speak to the caregivers and representatives has been obtained from the patient. Yes * Community resources currently utilized Home Health * Please name any agencies selected above. NOT SURE SHE WANTS TO RESUME AT [place]. ERIKA SIGNED FOR [facility] AT [place]. * Additional services required to return to the preadmission environment? No * Can the patient safely return to the preadmission environment? Yes * Has this patient been hospitalized within the prior 30 days at any hospital? Yes Last DP export: 12/15/18 7:51 a Patient Name: KASSANDRA REYNOLDS Page 38828 at 0822 All edits/amendments must be made on the electronic document DICTATION DATE: 12/21/18820 DRY KILN WORKER: EFRAÍN 12/21/18820 RPT#: [id number] [place] DATE:12/15/18 STATUS: DIS IN [facility] [address] [place] [address] END OF REPORT
== END 2018-12-15 17:57 | DRG 501 ==
LOC: D.ER 08:56 → D.MS 15:45
PROVIDERS: Family Medicine; Orthopaedic Surgery; ADMIT Internal Medicine Nephrology; ATTEND Internal Medicine Nephrology
PROC: 0MDP4ZZ Extraction of Left Knee Bursa and Ligament, Percutaneous Endoscopic Approach (ICD-10-PCS; principal; 2018-12-09 09:00)
DX: M00.9 Pyogenic arthritis, unspecified (principal); I50.30 Unspecified diastolic (congestive) heart failure; N17.9 Acute kidney failure, unspecified; E87.1 Hypo-osmolality and hyponatremia; I11.0 Hypertensive heart disease with heart failure; I25.10 Atherosclerotic heart disease of native coronary artery without angina pectoris; E11.65 Type 2 diabetes mellitus with hyperglycemia; J44.9 Chronic obstructive pulmonary disease, unspecified; M54.16 Radiculopathy, lumbar region; F41.8 Other specified anxiety disorders

== ENCOUNTER → 2020-01-02 09:48 | Outpatient (CLI) | payer MEDICARE ==
[2018-12-09 12:09] VITALS: BMI 24.9
[~2020-01-02 09:48] MED LIST changes: +COLCRYS0.6 MG PO; +FIBERCON625 MG PO; +FLORAJEN3 CAPS460 MG PO; +HUMALOG 30100 UNITS/ SC; +MERREM 1 GM/NS 11 G1 IV; +PROTONIX40 MG PO; +VIBRAMYCIN50 MG PO
== END | disposition home or self-care (01) ==
LOC: D.RAD 09:48
PROVIDERS: ATTEND Nurse Practitioner Family
DX: R09.02 Hypoxemia (principal)